=== PATIENT | female | born 1985 | race Caucasian/White ===

== ENCOUNTER 2022-01-23 11:32 | Observation (INO) | payer MEDICAID, SELFPAY ==
[2022-01-23] VITALS (70 sets, daily range): BP systolic 90–145; BP diastolic 64–102; PULSE 78–124; RESP 15–18; TEMP 36.6–36.7; O2SAT 94–100; BMI 28.3
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
--- NOTE | 2022-01-23 12:03 | ECG_ITS ---
[facility] Test Date: 2022-01-23 Pat Name: MAGALIS CHAVEZ Department: Room: Gender: Female Qa Software Tester: : 1985 Requested By: Mitch Kent Order Number: [id number] Ruth MD: Roger Moon M.D. Measurements Intervals [place] Rate: 86 P: 50 KS: 149 QRS: 41 QRSD: 105 T: 42 QT: 370 QTc: 444 Interpretive Statements SINUS RHYTHM POSSIBLE ANTERIOR MYOCARDIAL INFARCTION , OF INDETERMINATE AGE [30 ms Q WAVE IN V3/V4, OR R < 0.2 mV IN V4] No previous ECG available for comparison Electronically Signed On 01-23-2022 13:43:14 COMMUNITY SUPPORT SPECIALIST by Roger Moon M.D. [id number]
[2022-01-23 12:29] LABS: Basophils % 0.2 %; Eosinophils # 0.1 10^3/uL (0.0-0.8); Eosinophils % 0.7 %; Hematocrit 37.4 % (37.0-47.0); Lymphocytes # 0.8 10^3/uL (0.8-4.8); Lymphocytes % 9.4 %; Mean Corpuscular HGB Conc 32.1 g/dL (30.0-36.0); Mean Corpuscular Hemoglobin 26.4 pg (28.0-34.0); Mean Corpuscular Volume 82.2 fl (81-99); Mean Platelet Volume 10.1 fL (7.4-10.4); Monocytes # 0.3 10^3/uL (0.2-0.9); Neutrophils # 7.12 10^3/uL (1.8-7.7); Neutrophils % 85.3 %; Nucleated Red Blood Cells % 0 %; Platelet Count 343 10^3/cmm (130-400); Red Blood Count 4.55 10^6/uL (4.1-5.3); Red Cell Distribution Width 16.1 % (12.1-15.1); White Blood Count 8.3 10^3/uL (4.0-10.0)
[2022-01-23] MEDS: sodium chloride 0.9% 1,000 ML 999 ML IV (12:42)
[2022-01-23] MEDS: insulin regular-human 100 units/1 mL 10 UNIT IVP (12:42)
[2022-01-23 12:51] LABS: Alanine Aminotransferase 17 U/L (0-33); Albumin Level 3.7 g/dL (3.5-5.2); Alkaline Phosphatase 94 IU/L (35-105); Anion Gap 14.3 (5-19); Aspartate Amino Transferase 13 U/L (0-32); Blood Urea Nitrogen 14 mg/dL (6-20); Calcium 8.8 mg/dL (8.5-10.5); Carbon Dioxide 26 mmol/L (22-29); Chloride 90 mmol/L (98-107); Globulin 2.8 g/dL (1.3-4.6); Glomerular Filtration Rate 112.5 mL/min (90-130); Osmolality Calculated 296 mOsm/kg (285-295); Potassium 4.3 mmol/L (3.5-5.1); Sodium 126 mmol/L (136-145); Thyroid Stimulating Hormone 0.55 uIU/mL (0.27-4.20); Total Bilirubin 0.2 mg/dL (0.15-1.2); Total Protein 6.5 g/dL (6.6-8.7)
[2022-01-23 12:54] LABS: ABG PCO2 27.9 mmHg (35-45); ABG PH Result 7.26 (7.35-7.45); Arterial Blood Gas Hematocrit 25.1 % (37-47); Base Excess ABG -13.4 mmol/L (-2.0-2.0); Blood Gas Operator Identificat glc; Blood Gas Sample Site Brachial, left; Blood Gas Sample Type Arterial; Carboxyhemoglobin 0.9 %THgb (0.4-20.1); HCO3 ABG 12.5 mmol/L (22-26); Ionized Calcium Level - ABG 1.1 mmol/L (1.1-1.4); Methemoglobin 0.8 % (0.4-1.5); Oxygen Device ROOM AIR; Oxygen Saturation ABG 98.7; Total Hemoglobin 8.2 g/dL (12-16)
[2022-01-23 12:55] LABS: Glucose 704 mg/dL (65-115)
[2022-01-23 13:08] LABS: HCG Qualitative Urine. Negative (Negative)
[2022-01-23 13:41] LABS: SARS Covid-2 Antigen Negative (Negative)
[2022-01-23 13:49] LABS: Bilirubin Urine Neg (Negative); Blood Urine 3+ (Negative); Glucose Urine UA 4+ (Normal); Ketones Urine Negative (Negative); Leukocyte Esterase Urine Negative (Negative); Nitrate Urine Positive (Negative); Protein Urine Neg (Negative); Specific Gravity, Urine 1.005 (1.005-1.030); Urine Appearance Hazy (CLEAR); Urine Color Yellow (Yellow); Urobilinogen Urine Neg (Negative); pH Urine 5 (5-7)
[2022-01-23 13:50] LABS: Add Urine Culture? Yes; Bacteria Urine 3+ /hpf; Squamous Epithelial Cell Urine 0-4 /hpf (0-5)
--- NOTE | 2022-01-23 14:06 | PC.NURSE ---
FSBS 351
[2022-01-23 14:09] LABS: Glucose Point of Care 351 mg/dL (70-110)
--- NOTE | 2022-01-23 14:10 | PC.NURSE ---
PATIENT WOULD LIKE TO LEAVE. PROVIDER NOTIFIED.
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
--- NOTE | 2022-01-23 14:40 | ED_ITS ---
HPI - General Adult General: Chief complaint: General Medical Stated complaint: HYPERGLYCEMIA Time Seen by Provider: 01/23/22 11:57 History of Present Illness: See previous note Course Vital Signs: Vital signs: Vital Signs Temperature 98.1 F 01/23/22 11:54 Pulse Rate 90 01/23/22 13:03 Respiratory Rate 15 01/23/22 13:03 Blood Pressure 124/88 01/23/22 13:03 Pulse Oximetry 99 01/23/22 13:03 MDM - General Adult Medical Decision Making Addendum previous ER documentation, following deciding that she would like to leave AGAINST MEDICAL ADVICE patient then recounted her decision and decided to stay. Started on insulin drip and admitted to ICU. Remainder of lab work and imaging reviewed. Discussed with hospitalist and they agreed patient would benefit from admission. Patient admitted in stable condition. Further evaluation management per hospitalist team. Lab Data : 01/23/22 11:20 01/23/22 11:20 Laboratory Results WBC 8.3 10^3/uL (4.0-10.0) 01/23/22 11:20 RBC 4.55 10^6/uL (4.1-5.3) 01/23/22 11:20 Hgb 12.0 g/dL (11.5-15.3) 01/23/22 11:20 Hct 37.4 % (37.0-47.0) 01/23/22 11:20 MCV 82.2 fl (81-99) 01/23/22 11:20 MCH 26.4 pg (28.0-34.0) L 01/23/22 11:20 MCHC 32.1 g/dL (30.0-36.0) 01/23/22 11:20 RDW 16.1 % (12.1-15.1) H 01/23/22 11:20 Plt Count 343 10^3/cmm (130-400) 01/23/22 11:20 MPV 10.1 fL (7.4-10.4) 01/23/22 11:20 Neut % (Auto) 85.3 % 01/23/22 11:20 Lymph % (Auto) 9.4 % 01/23/22 11:20 [place] % (Auto) 4.0 % 01/23/22 11:20 Eos % (Auto) 0.7 % 01/23/22 11:20 Baso % (Auto) 0.2 % 01/23/22 11:20 Neut # (Auto) 7.12 10^3/uL (1.8-7.7) 01/23/22 11:20 Lymph # (Auto) 0.8 10^3/uL (0.8-4.8) 01/23/22 11:20 [place] # (Auto) 0.3 10^3/uL (0.2-0.9) 01/23/22 11:20 Eos # (Auto) 0.1 10^3/uL (0.0-0.8) 01/23/22 11:20 Baso # (Auto) 0.0 10^3/uL (0.0-0.1) 01/23/22 11:20 Nucleated RBC % (auto) 0 % 01/23/22 11:20 Nucleated RBCs # 0.0 /100WBC 01/23/22 11:20 Specimen Type Arterial 01/23/22 12:46 Sample Site Brachial, left 01/23/22 12:46 ABG pH 7.26 (7.35-7.45) L 01/23/22 12:46 ABG pCO2 27.9 mmHg (35-45) L 01/23/22 12:46 ABG pO2 115.0 mmHg (80.0-100.0) H 01/23/22 12:46 ABG HCO3 12.5 mmol/L (22-26) L 01/23/22 12:46 ABG O2 Saturation 98.7 01/23/22 12:46 ABG Base Excess -13.4 mmol/L (-2.0-2.0) L 01/23/22 12:46 Justin Test N/a 01/23/22 12:46 Hematocrit 25.1 % (37-47) L 01/23/22 12:46 Hgb O2 Saturation 97.0 % (95-100) 01/23/22 12:46 Carboxyhemoglobin 0.9 %THgb (0.4-20.1) 01/23/22 12:46 Methemoglobin 0.8 % (0.4-1.5) 01/23/22 12:46 Total Hemoglobin 8.2 g/dL (12-16) L 01/23/22 12:46 Sodium 141.0 mmol/L (131-143) 01/23/22 12:46 Potassium 4.0 mmol/L (3.5-5.0) 01/23/22 12:46 Glucose 229.0 mg/dL (70-115) H 01/23/22 12:46 Ionized Calcium 1.1 mmol/L (1.1-1.4) 01/23/22 12:46 O2 Delivery Device Room air 01/23/22 12:46 FiO2 21.0 % 01/23/22 12:46 Folding Rules Printing Machine Operator ID glc 01/23/22 12:46 Sodium 126 mmol/L (136-145) L 01/23/22 11:20 Potassium 4.3 mmol/L (3.5-5.1) 01/23/22 11:20 Chloride 90 mmol/L (98-107) L 01/23/22 11:20 Carbon Dioxide 26 mmol/L (22-29) 01/23/22 11:20 Anion Gap 14.3 (5-19) 01/23/22 11:20 BUN 14 mg/dL (6-20) 01/23/22 11:20 Creatinine 0.6 mg/dL (0.5-0.9) 01/23/22 11:20 GFR Calculation 112.5 mL/min (90-130) 01/23/22 11:20 Glucose 704 mg/dL (65-115) H* 01/23/22 11:20 POC Glucose 351 mg/dL (70-110) H 01/23/22 14:06 Calculated Osmolality 296 mOsm/kg (285-295) H 01/23/22 11:20 Calcium 8.8 mg/dL (8.5-10.5) 01/23/22 11:20 Total Bilirubin 0.2 mg/dL (0.15-1.2) 01/23/22 11:20 AST 13 U/L (0-32) 01/23/22 11:20 ALT 17 U/L (0-33) 01/23/22 11:20 Alkaline Phosphatase 94 IU/L (35-105) 01/23/22 11:20 Total Protein 6.5 g/dL (6.6-8.7) L 01/23/22 11:20 Albumin 3.7 g/dL (3.5-5.2) 01/23/22 11:20 Globulin 2.8 g/dL (1.3-4.6) 01/23/22 11:20 TSH 0.55 uIU/mL (0.27-4.20) 01/23/22 11:20 HCG, Qual Negative (Negative) 01/23/22 12:57 Urine Color Yellow (Yellow) 01/23/22 12:57 Urine Appearance Hazy (CLEAR) A 01/23/22 12:57 Urine pH 5 (5-7) 01/23/22 12:57 Ur Specific [place] 1.005 (1.005-1.030) 01/23/22 12:57 Urine Protein Neg (Negative) 01/23/22 12:57 Urine Glucose (UA) 4+ (Normal) H 01/23/22 12:57 Urine Ketones Negative (Negative) 01/23/22 12:57 Urine Blood 3+ (Negative) H 01/23/22 12:57 Urine Nitrate Positive (Negative) H 01/23/22 12:57 Urine Bilirubin Neg (Negative) 01/23/22 12:57 Urine Urobilinogen Neg mg/dL (Negative) 01/23/22 12:57 Ur Leukocyte Esterase Negative (Negative) 01/23/22 12:57 Urine RBC 10-15 /hpf (0-2) H 01/23/22 12:57 Urine WBC 5-10 /hpf (0-5) H 01/23/22 12:57 Ur Squamous Epith Cells 0-4 /hpf (0-5) H 01/23/22 12:57 Amorphous Sediment Not Reportable 01/23/22 12:57 Urine Bacteria 3+ /hpf (NONE) H 01/23/22 12:57 SARS-CoV-2 Ag (Rapid) Negative (Negative) 01/23/22 12:59 Discharge Plan Discharge Patient Disposition: Left Against Medical Advice Clinical Impression: UTI (urinary tract infection), Hyperglycemia Condition: Stable Prescriptions: New cephalexin 500 mg tablet 500 mg PO BID 7 Days Qty: 14 0RF Referrals: Your, PCP [Other] - 1-3 days Patient Instructions: Urinary Tract Infection in Women (ED), Diabetic Hyperglycemia (ED) Coding Level of Care Code ED Loss Control Engineer for Mylene Arreguin
--- NOTE | 2022-01-23 14:52 | PC.NURSE ---
HOLD INSULIN DRIP PER DR SHEPPARD.
[2022-01-23] MEDS: cefTRIAXone 1,000 MG in sodium chloride 0.9% (plus) 50 ML 100 MG IV (14:54)
--- NOTE | 2022-01-23 14:59 | PC.NURSE ---
CALL [phone] [facility] AT [facility].
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
[2022-01-23 15:31] LABS: Alcohol Level < 10 mg/dL (0-10)
[2022-01-23 15:33] LABS: Amphetamines Screen Urine Positive (Negative); Barbiturates Screen Urine Negative (Negative); Benzodiazepines Screen Urine Negative (Negative); Cocaine Screen Urine Negative (Negative); Opiate Screen Urine Negative (Negative); PCP Screen Urine Negative (Negative); THC Screen Urine Negative (Negative)
[2022-01-23 15:34] LABS: Iron 42 ug/dL (37-145); Percent Saturation 12.6 % (20-50); Total Iron Binding Capacity 332 mcg/dl; Unsaturated Iron Binding 290 ug/dL (112-347)
[2022-01-23] MEDS: sodium chloride 0.9% 1,000 ML 75 ML IV (15:34)
[2022-01-23] MEDS: potassium chloride premix 100 ML 50 MEQ IV (15:34)
[2022-01-23 15:41] LABS: Procalcitonin 0.03 ng/mL (0-0.5)
[2022-01-23] MEDS: insulin glargine 100 units/1 mL 50 UNIT SUBCUT (17:02)
[2022-01-23 17:08] LABS: Glucose Point of Care 275 mg/dL (70-110)
[2022-01-23 17:39] LABS: Estmated Average Glucose 395; Hemoglobin A1C 15.4 % (4.0-6.0)
--- NOTE | 2022-01-23 18:37 | PC.NURSE ---
Arrived from ED via stretcher, scooted self to bed, AO no c/o at this time
[2022-01-23 19:35] LABS: Glucose Point of Care 369 mg/dL (70-110)
[2022-01-23] MEDS: enoxaparin 40 mg/0.4 mL Syringe SUBCUT (19:35)
[2022-01-23] MEDS: insulin lispro 100 unit/1 mL SUBCUT (19:36)
[2022-01-23 20:16] LABS: Glucose Point of Care 272 mg/dL (70-110)
[2022-01-23 22:19] LABS: Glucose Point of Care 360 mg/dL (70-110)
[2022-01-23 23:10] LABS: Glucose Point of Care 178 mg/dL (70-110)
[2022-01-24] VITALS (74 sets, daily range): BP systolic 80–153; BP diastolic 53–103; PULSE 0–95; RESP 18; TEMP 36.6–37.2; O2SAT 95–100
[2022-01-24 00:09] LABS: Anion Gap 10.8 (5-19); Blood Urea Nitrogen 12 mg/dL (6-20); Calcium 8.4 mg/dL (8.5-10.5); Carbon Dioxide 26 mmol/L (22-29); Chloride 103 mmol/L (98-107); Glomerular Filtration Rate 250.3 mL/min (90-130); Glucose 142 mg/dL (65-115); Osmolality Calculated 284 mOsm/kg (285-295); Potassium 3.8 mmol/L (3.5-5.1); Sodium 136 mmol/L (136-145)
[2022-01-24 04:03] LABS: Eosinophils # 0.1 10^3/uL (0.0-0.8); Eosinophils % 1.2 %; Hematocrit 32.9 % (37.0-47.0); Hemoglobin 10.8 g/dL (11.5-15.3); Lymphocytes # 1.5 10^3/uL (0.8-4.8); Mean Corpuscular HGB Conc 32.8 g/dL (30.0-36.0); Mean Corpuscular Hemoglobin 26.3 pg (28.0-34.0); Mean Corpuscular Volume 80.2 fl (81-99); Mean Platelet Volume 9.5 fL (7.4-10.4); Monocytes # 0.4 10^3/uL (0.2-0.9); Monocytes % 7.3 %; Neutrophils # 3.93 10^3/uL (1.8-7.7); Neutrophils % 66.3 %; Nucleated Red Blood Cells % 0 %; Platelet Count 317 10^3/cmm (130-400); White Blood Count 5.9 10^3/uL (4.0-10.0)
[2022-01-24 04:23] LABS: Chol HDL Ratio 4.56 mg/dL (0.0-4.40); Cholesterol 205 mg/dL (0-200); HDL Cholesterol 45 mg/dL (60-100); LDL Cholesterol Calculated 143 mg/dL (50-129); Triglycerides 86 mg/dL (0-150); VLDL Cholestrol Calculation 17 mg/dL (0-30)
[2022-01-24 04:26] LABS: Alanine Aminotransferase 13 U/L (0-33); Albumin Level 2.9 g/dL (3.5-5.2); Alkaline Phosphatase 74 IU/L (35-105); Anion Gap 10.5 (5-19); Aspartate Amino Transferase 11 U/L (0-32); Blood Urea Nitrogen 13 mg/dL (6-20); Calcium 8.4 mg/dL (8.5-10.5); Carbon Dioxide 25 mmol/L (22-29); Chloride 103 mmol/L (98-107); Globulin 2.9 g/dL (1.3-4.6); Glomerular Filtration Rate 250.3 mL/min (90-130); Glucose 124 mg/dL (65-115); Osmolality Calculated 282 mOsm/kg (285-295); Potassium 3.5 mmol/L (3.5-5.1); Sodium 135 mmol/L (136-145); Total Bilirubin 0.2 mg/dL (0.15-1.2); Total Protein 5.8 g/dL (6.6-8.7)
[2022-01-24] MEDS: sodium chloride 0.9% 1,000 ML 75 ML IV (06:12)
[2022-01-24 07:42] LABS: Glucose Point of Care 146 mg/dL (70-110)
[2022-01-24] MEDS: insulin lispro 100 unit/1 mL SUBCUT ×2 (08:01→11:40)
[2022-01-24] MEDS: insulin glargine 100 units/1 mL 50 UNIT SUBCUT (08:01)
[2022-01-24] MEDS: pantoprazole DR 40 mg Tablet PO (08:01)
--- NOTE | 2022-01-24 10:12 | PC.CHAP ---
Pastoral Care Encounter/Spiritual Assessment Type of Contact [] Declined plant cytologist visit [] Patient/Family/Request visit [] Outpatient visit [] Follow-up visit [] Physician referral [] Code/Alert [x] Routine visit [] Staff referral [] Actively dying [] Patient sleeping [] Family support [] [] Out of room [] Palliative care [] [] Receiving care in room [] Pre-surgical visit [] Trauma [] Long length of stay [x] ICU visit [x] Other: patient setting in bed with sunglasses on..... Relational/Emotional Strength [] Patient feels connected with others/family/visitors/staff [] Distress [] Loneliness/isolation [] Abandonment Spirituality of Patient [] Person of Odalis [] Attends Mosque of their [place] [] Believes in Prayer [] Reads Bible or Synagogue materials [] There are Spiritual issues to be addressed Oil Analyst Interventions [x] Prayer [] Active listening [] Non-anxious presence [] Spiritual/emotional support [] Crisis/trauma care [] Spiritual counseling [] Bereavement support [] Provided bereavement packet [] Provided Bible/devotional materials [] Provided toy/stuffed animal, coloring book to patient or family member [] Provided Communion [] Anointing/Jackson [] Salvation [x] Completed spiritual assessment [] Other: Impact on Illness or Injury [] Angry [] Fearful [] Anxious [] Often cries [] Exhaustion [] Unable to work [] Unable to attend caodaism [] Unable to walk/stand [] Unable to read [] Unable to drive [] Unable to eat/drink [] Unable to sleep [] Unable to be with family [] Patient intubated [] Other: Summary Time spent with patient
[2022-01-24 11:25] LABS: Glucose Point of Care 237 mg/dL (70-110)
--- NOTE | 2022-01-24 12:15 | PC.NURSE ---
Dr. Kerr gave v.o. to send patient to med surg once there is a bed available
--- NOTE | 2022-01-24 12:34 | PC.NURSE ---
Dr. Kerr gave v.o. to d/c patient today
--- NOTE | 2022-01-24 12:38 | PM.DCS ---
Discharge Providers Date of Admission: 01/23/22 14:48 Date of Discharge: January 24, 2022 Attending Provider at Admission: Shyam Camara MD Attending Provider at Discharge: Barrett Kerr MD Diagnoses at Discharge Discharge Diagnosis (1) Hyperglycemia: Status: Acute (2) UTI (urinary tract infection): Status: Acute (3) Insulin dependent type 2 diabetes mellitus: Status: Acute (4) Amphetamine abuse: Status: Acute (5) Legally blind: Status: Acute (6) Metabolic acidosis due to diabetes mellitus: Status: Acute Reason for Visit Reason for Visit: HYPERGLYCEMIA Hospital Course Hospital Course 36 year old female with past medical history of insulin-dependent type 2 diabetes mellitus, legally blind for last 8 months [facility], she was sent in from [facility] because of persistent hyperglycemia.Patient was complaining of mild abdominal pain on admission .Denies any nausea vomiting, headache, fever, dysuria.In the ER she was found to have blood sugars of more than 700, acidosis on the ABG though did not have an anion gap. She was admitted for the management of uncontrolled diabetes secondary to medication noncompliance As well as hyperglycemia. She was kept on Lantus as well as sliding scale insulin during the hospital stay. Blood sugar was well controlled, she was tolerating diet well, denied any active complaints. She was discharged back to the rehab, on Lantus 40 twice daily, as well as 7 units premeal NovoLog. According to the patient staff at the facility helps her with insulin administration. She was also managed for UTI: Urine culture is growing gram-negative rods:She has been discharged on levofloxacin p.o. for 5 days. She will follow-up with her PCP as an outpatient for continued diabetes management. Patient responded well to above medical management and is being discharged in stable condition To the rehabilitation facility. Physical Exam Const: COMMON NORMALS: patient oriented x3 HENMT: COMMON NORMALS: normocephalic and atraumatic HEAD & SCALP: normocephalic and atraumatic Eye: COMMON NORMALS: no scleral icterus Chest: COMMONS NORMALS: normal inspection of the chest and normal palpation of entire chest wall CHEST: Yes Symmetrical chest wall rise Resp: COMMON NORMALS: normal respiratory effort, No retractions, No use of accessory muscles and clear to auscultation bilaterally EFFORT & INSPECTION: Yes symmetric chest movement AUSCULTATION: clear to auscultation bilaterally Cardio: COMMON NORMALS: regular rate, regular rhythm, S1 normal heart sound present, S2 normal heart sound present, No gallops present (Cardio), No murmurs present (Cardio), No rub (Cardio) and Peripheral pulses 2+ throughout RATE: regular rate RHYTHM: regular rhythm HEART SOUNDS: S1 normal heart sound present and S2 normal heart sound present PERIPHERAL PULSES: Peripheral pulses 2+ throughout GI: COMMON NORMALS: Normal to inspection, nondistended, normoactive bowel sounds present, Soft to palpation, non-tender, No hepatosplenomegaly present and no masses AUSCULTATION: Yes normoactive bowel sounds PALPATION: Yes Soft to palpation and Yes No hepatosplenomegaly present RECTAL EXAM: deferred Extremity: COMMON NORMALS: no clubbing, cyanosis or edema and no pedal edema Neuro: COMMON NORMALS: patient oriented x3 Discharge Data Studies Completed and Pending Pending at discharge Category Date Time Status Arterial Blood Gas Full Stat Lab 01/23/22 12:46 Results Beta-Hydroxybutyrate Routine Lab 01/23/22 11:20 Received Blood Culture Stat Lab 01/23/22 15:31 Results Ethylene Glycol Stat Lab 01/23/22 15:28 Received MRSA by PCR Routine Lab 01/23/22 14:52 Uncollected Urine Culture Stat Lab 01/23/22 12:57 Results Laboratory Results WBC 5.9 10^3/uL (4.0-10.0) 01/24/22 03:28 RBC 4.10 10^6/uL (4.1-5.3) 01/24/22 03:28 Hgb 10.8 g/dL (11.5-15.3) L 01/24/22 03:28 Hct 32.9 % (37.0-47.0) L 01/24/22 03:28 MCV 80.2 fl (81-99) L 01/24/22 03:28 MCH 26.3 pg (28.0-34.0) L 01/24/22 03:28 MCHC 32.8 g/dL (30.0-36.0) 01/24/22 03:28 RDW 16.0 % (12.1-15.1) H 01/24/22 03:28 Plt Count 317 10^3/cmm (130-400) 01/24/22 03:28 MPV 9.5 fL (7.4-10.4) 01/24/22 03:28 Neut % (Auto) 66.3 % 01/24/22 03: Lymph % (Auto) 25.0 % 01/24/22 03:28 Gilchrist % (Auto) 7.3 % 01/24/22 03:28 Eos % (Auto) 1.2 % 01/24/22 03:28 Baso % (Auto) 0.0 % 01/24/22 03: Neut # (Auto) 3.93 10^3/uL (1.8-7.7) 01/24/22 03: Lymph # (Auto) 1.5 10^3/uL (0.8-4.8) 01/24/22 03: Gilchrist # (Auto) 0.4 10^3/uL (0.2-0.9) 01/24/22 03: Eos # (Auto) 0.1 10^3/uL (0.0-0.8) 01/24/22 03: Baso # (Auto) 0.0 10^3/uL (0.0-0.1) 01/24/22 03: Nucleated RBC % (auto) 0 % 01/24/22 03: Nucleated RBCs # 0.0 /100WBC 01/24/22 03:28 Specimen Type Arterial 01/23/22 12:46 Sample Site Brachial, left 01/23/22 12:46 ABG pH 7.26 (7.35-7.45) L 01/23/22 12:46 ABG pCO2 27.9 mmHg (35-45) L 01/23/22 12:46 ABG pO2 115.0 mmHg (80.0-100.0) H 01/23/22 12:46 ABG HCO3 12.5 mmol/L (22-26) L 01/23/22 12:46 ABG O2 Saturation 98.7 01/23/22 12:46 ABG Base Excess -13.4 mmol/L (-2.0-2.0) L 01/23/22 12:46 Justin Test N/a 01/23/22 12:46 Hematocrit 25.1 % (37-47) L 01/23/22 12:46 Hgb O2 Saturation 97.0 % (95-100) 01/23/22 12:46 Carboxyhemoglobin 0.9 %THgb (0.4-20.1) 01/23/22 12:46 Methemoglobin 0.8 % (0.4-1.5) 01/23/22 12:46 Total Hemoglobin 8.2 g/dL (12-16) L 01/23/22 12:46 Sodium 141.0 mmol/L (131-143) 01/23/22 12:46 Potassium 4.0 mmol/L (3.5-5.0) 01/23/22 12:46 Glucose 229.0 mg/dL (70-115) H 01/23/22 12:46 Ionized Calcium 1.1 mmol/L (1.1-1.4) 01/23/22 12:46 O2 Delivery Device Room air 01/23/22 12:46 FiO2 21.0 % 01/23/22 12:46 Roll Trucker ID glc 01/23/22 12:46 Sodium 135 mmol/L (136-145) L 01/24/22 03:28 Potassium 3.5 mmol/L (3.5-5.1) 01/24/22 03:28 Chloride 103 mmol/L (98-107) 01/24/22 03:28 Carbon Dioxide 25 mmol/L (22-29) 01/24/22 03:28 Anion Gap 10.5 (5-19) 01/24/22 03:28 BUN 13 mg/dL (6-20) 01/24/22 03:28 Creatinine 0.3 mg/dL (0.5-0.9) L 01/24/22 03:28 GFR Calculation 250.3 mL/min (90-130) H 01/24/22 03:28 Glucose 124 mg/dL (65-115) H 01/24/22 03:28 POC Glucose 237 mg/dL (70-110) H 01/24/22 11:22 Estimat Average Glucose 395 01/23/22 11:20 Hemoglobin A1c 15.4 % (4.0-6.0) H 01/23/22 11:20 Calculated Osmolality 282 mOsm/kg (285-295) L 01/24/22 03:28 Calcium 8.4 mg/dL (8.5-10.5) L 01/24/22 03:28 Iron 42 ug/dL (37-145) 01/23/22 11:20 TIBC 332 mcg/dl 01/23/22 11:20 % Saturation 12.6 % (20-50) L 01/23/22 11:20 Unsat Iron Binding 290 ug/dL (112-347) 01/23/22 11:20 Total Bilirubin 0.2 mg/dL (0.15-1.2) 01/24/22 03:28 AST 11 U/L (0-32) 01/24/22 03:28 ALT 13 U/L (0-33) 01/24/22 03:28 Alkaline Phosphatase 74 IU/L (35-105) 01/24/22 03:28 Total Protein 5.8 g/dL (6.6-8.7) L 01/24/22 03:28 Albumin 2.9 g/dL (3.5-5.2) L 01/24/22 03:28 Globulin 2.9 g/dL (1.3-4.6) 01/24/22 03:28 Triglycerides 86 mg/dL (0-150) 01/24/22 03:28 Cholesterol 205 mg/dL (0-200) H 01/24/22 03:28 LDL Cholesterol, Calc 143 mg/dL (50-129) H 01/24/22 03:28 Total VLDL Cholesterol 17 mg/dL (0-30) 01/24/22 03:28 HDL Cholesterol 45 mg/dL (60-100) L 01/24/22 03:28 Cholesterol/HDL Ratio 4.56 mg/dL (0.0-4.40) H 01/24/22 03:28 Procalcitonin 0.03 ng/mL (0-0.5) 01/23/22 11:20 TSH 0.55 uIU/mL (0.27-4.20) 01/23/22 11:20 TSH Cancelled 01/23/22 11:20 HCG, Qual Negative (Negative) 01/23/22 12:57 Urine Color Yellow (Yellow) 01/23/22 12:57 Urine Appearance Hazy (CLEAR) A 01/23/22 12:57 Urine pH 5 (5-7) 01/23/22 12:57 Ur Specific [place] 1.005 (1.005-1.030) 01/23/22 12:57 Urine Protein Neg (Negative) 01/23/22 12:57 Urine Glucose (UA) 4+ (Normal) H 01/23/22 12:57 Urine Ketones Negative (Negative) 01/23/22 12:57 Urine Blood 3+ (Negative) H 01/23/22 12:57 Urine Nitrate Positive (Negative) H 01/23/22 12:57 Urine Bilirubin Neg (Negative) 01/23/22 12:57 Urine Urobilinogen Neg mg/dL (Negative) 01/23/22 12:57 Ur Leukocyte Esterase Negative (Negative) 01/23/22 12:57 Urine RBC 10-15 /hpf (0-2) H 01/23/22 12:57 Urine WBC 5-10 /hpf (0-5) H 01/23/22 12:57 Ur Squamous Epith Cells 0-4 /hpf (0-5) H 01/23/22 12:57 Amorphous Sediment Not Reportable 01/23/22 12:57 Urine Bacteria 3+ /hpf (NONE) H 01/23/22 12:57 Urine Opiates Screen Negative ng/mL (Negative) 01/23/22 12:57 Ur Barbiturates Screen Negative ng/mL (Negative) 01/23/22 12:57 Ur Phencyclidine Scrn Negative ng/mL (Negative) 01/23/22 12:57 Ur Amphetamines Screen Positive ng/mL (Negative) H 01/23/22 12:57 U Benzodiazepines Scrn Negative ng/mL (Negative) 01/23/22 12:57 Urine Cocaine Screen Negative ng/mL (Negative) 01/23/22 12:57 U Marijuana (THC) Screen Negative ng/mL (Negative) 01/23/22 12:57 Ethyl Alcohol < 10 mg/dL (0-10) 01/23/22 11:20 SARS-CoV-2 Ag (Rapid) Negative (Negative) 01/23/22 12:59 Vitals Last Vital Signs Temp 97.8 F 01/24/22 04:25 Pulse 81 01/24/22 12:00 Resp 16 01/23/22 18:29 BP 88/56 01/24/22 12:00 Pulse Ox 98 01/24/22 12:00 Discharge Plan Discharge Patient Disposition: Home Condition: Stable Prescriptions: New cephalexin 500 mg tablet 500 mg PO BID 7 Days Qty: 14 0RF levofloxacin 750 mg tablet 750 mg PO DAILY 5 Days Qty: 5 0RF Novolog Flexpen U-100 Insulin 100 unit/mL (3 mL) insulin pen 7 unit SUBCUT TID Qty: 15 2RF Lantus Solostar U-100 Insulin 100 unit/mL (3 mL) insulin pen 40 unit SUBCUT BID Qty: 15 3RF Discontinued insulin glargine 100 unit/mL Cartridge 40 unit SUBCUT BID 0RF Discharge Orders: Discharge Order (Routine); Ordered 01/24/22 Ordered By: Barrett Kerr Referrals: Your, PCP [Other] - 7-10 days Discharge Diet: Diabetic Discharge Activity: Resume usual activity Patient Instructions: Type 2 Diabetes, Hyperglycemia, Urinary Tract Infection in Women (ED), Diabetic Ketoacidosis (DC), Methamphetamine Use Disorder (DC), Diabetic Hyperglycemia (ED), Opioid Safety Discharge Attestations Time Spent in Discharge Care*: greater than 30 min Specific Discharge Activities: educating patient, educating and/or supporting family/caregiver, discussing with pcp/other providers, discussing with manager rn case/social workers/dc planners, documenting/other paperwork and evaluating patient/reviewing data Quality Metrics Clinical Quality Measures [ No reported AMI, CVA or VTE this stay] Coding Level of Care Code Acute Chg FW DC note Diagnoses Hyperglycemia R73.9 UTI (urinary tract infection) N39.0 Insulin dependent type 2 diabetes mellitus E11.9; Z79.4 Amphetamine abuse F15.10 Legally blind H54.8 Metabolic acidosis due to diabetes mellitus E11.69; E87.2
--- NOTE | 2022-01-24 12:45 | PC.NURSE ---
Patient requested prescriptions be given given to patient upon d/c
--- NOTE | 2022-01-24 13:05 | PC.NURSE ---
D/C meds called in for meds to beds
--- NOTE | 2022-01-24 14:30 | PC.NURSE ---
Discharge patient declined getting set up with a dr for follow up stating she will use a dr at [facility], this nurse notified [facility] of patient is ready for dc
--- NOTE | 2022-01-24 14:53 | PC.NURSE ---
Meds to beds arrived from Rx
--- NOTE | 2022-01-24 14:59 | PC.NURSE ---
[facility] called and received nurse report
--- NOTE | 2022-01-24 15:59 | PC.NURSE ---
patient out of unit accompanied by staff from [facility], meds to beds and dc paperwork given to receiving facility staff after going over instructions
[2022-01-28 23:58] LABS: Beta-Hydroxybutyrate 0.13 mmol/L
[2022-01-29 21:03] LABS: Ethylene Glycol <10.0 mg/L (***)
== END 2022-01-24 15:00 | disposition home or self-care (01) ==
LOC: ER 15:59 → ICU 18:02
PROVIDERS: Admitting Provider Student in an Organized Health Care Education/Training Program; Emergency Provider Emergency Medicine; Visit Provider Internal Medicine
DX: E11.65 Type 2 diabetes mellitus with hyperglycemia (principal); N39.0 Urinary tract infection, site not specified; Z79.4 Long term (current) use of insulin; F15.10 Other stimulant abuse, uncomplicated; H54.8 Legal blindness, as defined in USA; E11.69 Type 2 diabetes mellitus with other specified complication; E87.2 Acidosis; F15.11 Other stimulant abuse, in remission; Z87.891 Personal history of nicotine dependence
CPT/HCPCS: 36415; 36416; 36600; 80048; 80051; 80053; 80061; 80306; 80307; 81001; 81025; 82010; 82330; 82693; 82805; 82962; 83036; 83540; 83550; 84145; 84443; 85025; 87040; 87077; 87086; 87186; 87426; 93005; 94664; 96365; 96372; 96375; 99285; G0378; J0696; J1650; J1815 ×2; J3480; J7030

== ENCOUNTER 2022-01-26 14:44 | Emergency (ER) | payer MEDICAID, SELFPAY ==
[2022-01-26 15:09] VITALS: BP 132/88; PULSE 99; RESP 15; TEMP 36.7; O2SAT 100; BMI 30.2
[2022-01-26 15:15] VITALS: BP 105/70; PULSE 94; RESP 18; TEMP 36.8; O2SAT 94
[2022-01-26 15:35] LABS: Glucose Point of Care 512 mg/dL (70-110)
[2022-01-26 16:29] LABS: Basophils % 0.3 %; Eosinophils # 0.1 10^3/uL (0.0-0.8); Hematocrit 35.9 % (37.0-47.0); Hemoglobin 11.4 g/dL (11.5-15.3); Lymphocytes # 1.8 10^3/uL (0.8-4.8); Mean Corpuscular HGB Conc 31.8 g/dL (30.0-36.0); Mean Corpuscular Hemoglobin 25.9 pg (28.0-34.0); Mean Corpuscular Volume 81.6 fl (81-99); Mean Platelet Volume 9.5 fL (7.4-10.4); Monocytes # 0.4 10^3/uL (0.2-0.9); Monocytes % 6.2 %; Neutrophils # 3.73 10^3/uL (1.8-7.7); Nucleated Red Blood Cells % 0 %; Platelet Count 373 10^3/cmm (130-400); Red Cell Distribution Width 16.6 % (12.1-15.1)
[2022-01-26 16:38] LABS: Ketone (Acetest) Serum Negative (Negative)
[2022-01-26 16:40] LABS: ABG PCO2 41.4 mmHg (35-45); ABG PH Result 7.44 (7.35-7.45); Arterial Blood Gas Hematocrit 33.8 % (37-47); Base Excess ABG 3.3 mmol/L (-2.0-2.0); Blood Gas Allen Test Pos; Blood Gas Operator Identificat ED; Blood Gas Sample Site Radial, right; Blood Gas Sample Type Arterial; HCO3 ABG 27.9 mmol/L (22-26); Oxygen Device ROOM AIR; PO2 ABG 87.5 mmHg (80.0-100.0)
[2022-01-26 16:51] LABS: Blood Urea Nitrogen 20 mg/dL (6-20); Calcium 8.8 mg/dL (8.5-10.5); Carbon Dioxide 25 mmol/L (22-29); Chloride 97 mmol/L (98-107); Glomerular Filtration Rate 112.5 mL/min (90-130); Glucose 385 mg/dL (65-115); Osmolality Calculated 295 mOsm/kg (285-295); Sodium 133 mmol/L (136-145)
[2022-01-26] MEDS: insulin lispro 100 unit/1 mL SUBCUT (17:07)
[2022-01-26] MEDS: sodium chloride 0.9% 1,000 ML 999 ML IV ×2 (17:19→18:23)
--- NOTE | 2022-01-26 17:34 | ED_ITS ---
HPI - Recheck/Abnormal Lab/Rx General: Chief Complaint: Recheck/Abnormal Lab/Rx Stated Complaint: Bloodsugar Time Seen by Provider: 01/26/22 15:44 PFSH ED PFSH: Medical History (Updated 01/25/22 @ 00:01 by ) Amphetamine abuse Bacteremia Insulin dependent type 2 diabetes mellitus Legally blind Surgical History (Updated 01/23/22 @ 15:31 by Shyam Camara MD) History of incision and drainage Family History (Updated 01/23/22 @ 15:31 by Shyam Camara MD) Other Diabetes Social History (Updated 01/23/22 @ 15:32 by Shyam Camara MD) Smoking and tobacco status: former smoker Alcohol intake: unknown Desire information about substance/drug rehabilitation?: Yes Counseling given: Yes Caregiver/support person: No Lives independently: Yes Household members: other Housing: [facility] Course Vital Signs: Vital signs: Vital Signs Temperature 98.2 F 01/26/22 15:15 Pulse Rate 94 01/26/22 15:15 Respiratory Rate 18 01/26/22 15:15 Blood Pressure 105/70 01/26/22 15:15 Pulse Oximetry 94 01/26/22 15:15 MDM - Recheck/Abnormal Lab/Rx Lab Data : 01/26/22 16:19 01/26/22 16:19 Laboratory Results WBC 6.0 10^3/uL (4.0-10.0) 01/26/22 16:19 RBC 4.40 10^6/uL (4.1-5.3) 01/26/22 16:19 Hgb 11.4 g/dL (11.5-15.3) L 01/26/22 16:19 Hct 35.9 % (37.0-47.0) L 01/26/22 16:19 MCV 81.6 fl (81-99) 01/26/22 16:19 MCH 25.9 pg (28.0-34.0) L 01/26/22 16:19 MCHC 31.8 g/dL (30.0-36.0) 01/26/22 16:19 RDW 16.6 % (12.1-15.1) H 01/26/22 16:19 Plt Count 373 10^3/cmm (130-400) 01/26/22 16:19 MPV 9.5 fL (7.4-10.4) 01/26/22 16:19 Neut % (Auto) 62.0 % 01/26/22 16:19 Lymph % (Auto) 30.0 % 01/26/22 16:19 [place] % (Auto) 6.2 % 01/26/22 16:19 Eos % (Auto) 1.0 % 01/26/22 16:19 Baso % (Auto) 0.3 % 01/26/22 16:19 Neut # (Auto) 3.73 10^3/uL (1.8-7.7) 01/26/22 16:19 Lymph # (Auto) 1.8 10^3/uL (0.8-4.8) 01/26/22 16:19 [place] # (Auto) 0.4 10^3/uL (0.2-0.9) 01/26/22 16:19 Eos # (Auto) 0.1 10^3/uL (0.0-0.8) 01/26/22 16:19 Baso # (Auto) 0.0 10^3/uL (0.0-0.1) 01/26/22 16:19 Nucleated RBC % (auto) 0 % 01/26/22 16: Nucleated RBCs # 0.0 /100WBC 01/26/22 16:19 Specimen Type Arterial 01/26/22 16:25 Sample Site Radial, right 01/26/22 16:25 ABG pH 7.44 (7.35-7.45) 01/26/22 16:25 ABG pCO2 41.4 mmHg (35-45) 01/26/22 16:25 ABG pO2 87.5 mmHg (80.0-100.0) 01/26/22 16:25 ABG HCO3 27.9 mmol/L (22-26) H 01/26/22 16:25 ABG Base Excess 3.3 mmol/L (-2.0-2.0) H 01/26/22 16:25 Justin Test Pos 01/26/22 16:25 Hematocrit 33.8 % (37-47) L 01/26/22 16:25 O2 Delivery Device Room air 01/26/22 16:25 FiO2 21.0 % 01/26/22 16:25 Vehicle Window Tinter ID Ed 01/26/22 16:25 Sodium 133 mmol/L (136-145) L 01/26/22 16:19 Potassium 5.0 mmol/L (3.5-5.1) 01/26/22 16:19 Chloride 97 mmol/L (98-107) L 01/26/22 16:19 Carbon Dioxide 25 mmol/L (22-29) 01/26/22 16:19 Anion Gap 16.0 (5-19) 01/26/22 16:19 BUN 20 mg/dL (6-20) 01/26/22 16:19 Creatinine 0.6 mg/dL (0.5-0.9) 01/26/22 16:19 GFR Calculation 112.5 mL/min (90-130) 01/26/22 16:19 Glucose 385 mg/dL (65-115) H 01/26/22 16:19 POC Glucose 512 mg/dL (70-110) H* 01/26/22 15:17 Calculated Osmolality 295 mOsm/kg (285-295) 01/26/22 16:19 Calcium 8.8 mg/dL (8.5-10.5) 01/26/22 16:19 Serum Ketones Negative (Negative) 01/26/22 16:19 Discharge Plan Discharge Condition: Stable Prescriptions: No Action cephalexin 500 mg tablet 500 mg PO BID 7 Days Qty: 14 0RF levofloxacin 750 mg tablet 750 mg PO DAILY 5 Days Qty: 5 0RF Novolog Flexpen U-100 Insulin 100 unit/mL (3 mL) insulin pen 7 unit SUBCUT TID Qty: 15 2RF Lantus Solostar U-100 Insulin 100 unit/mL (3 mL) insulin pen 40 unit SUBCUT BID Qty: 15 3RF Coding Level of Care Code ED Tafe Registrar for Chg Kallie
--- NOTE | 2022-01-26 17:37 | ED_ITS ---
HPI - General Adult General: Chief complaint: Recheck/Abnormal Lab/Rx Stated complaint: Bloodsugar Time Seen by Provider: 01/26/22 15:44 History of Present Illness: Patient is a 36-year-old female with history of type 2 diabetes presenting to emergency room with concerns of hyperglycemia. Patient is coming from and they had routine blood work done this morning which noted the patient was had a glucose of 560. Patient then came to the emergency room. Patient took 20 units of Lantus earlier today and 20 units of short acting insulin prior to mealtime. On arrival, patient has no other focal complaints, nausea/vomiting, diarrhea, polyuria, dysuria, hematuria, abdominal complaints, fever/chills, cough, runny nose or sore throat. Onset:earlier today Duration:ongoing Location:home Severity:moderate Associated symptoms: Deny chest pain, dyspnea, nausea, rash, palpitations or vomiting Review of Systems Const: Denies: fever(s) or chills Eyes: Denies: change in vision ENMT: Denies: mouth pain Card: Denies: chest pain or palpitations Resp: Denies: dyspnea or non-productive cough GI: Denies: abdominal pain, nausea, vomiting or diarrhea : Denies: dysuria Musc: Denies: extremity pain Skin/Breast: Denies: rash or new lesions Neuro: Denies: weakness in extremities Psych: Reports: other (Normal mood) Jordon/Lymph: Denies: easy bruising [facility] ED PFSH: Medical History (Updated 01/26/22 @ 18:55 by Ayaz Eng MD) Amphetamine abuse Bacteremia Insulin dependent type 2 diabetes mellitus Legally blind Surgical History (Updated 01/23/22 @ 15:31 by Shyam Camara MD) History of incision and drainage Family History (Updated 01/23/22 @ 15:31 by Shyam Camara MD) Other Diabetes Social History (Updated 01/23/22 @ 15:32 by Shyam Camara MD) Smoking and tobacco status: former smoker Alcohol intake: unknown Desire information about substance/drug rehabilitation?: Yes Counseling given: Yes Caregiver/support person: No Lives independently: Yes Household members: other [facility]: [facility] Physical Exam Const: COMMON NORMALS: alert HENMT: COMMON NORMALS: atraumatic HEAD & SCALP: atraumatic MOUTH: moist mucous membranes not abnormal Eye: COMMON NORMALS: EOMs intact bilaterally and conjunctivae normal CONJUNCTIVA: Yes conjunctivae normal Neck/C-Spine: COMMON NORMALS: full ROM and supple Resp: COMMON NORMALS: normal respiratory effort and clear to auscultation bilaterally AUSCULTATION: clear to auscultation bilaterally Cardio: COMMON NORMALS: regular rate RATE: regular rate GI: COMMON NORMALS: Soft to palpation and non-tender PALPATION: Yes Soft to palpation Extremity: COMMON NORMALS: full ROM Neuro: SENSORIUM/ORIENTATION: Yes alert MOTOR EXAM: No Abnormal motor strength present and Other motor observations present (no focal motor deficits) Psych: COMMON NORMALS: speech normal SPEECH: Yes normal speech MOOD & AFFECT: Yes euthymic mood Course Vital Signs: Vital signs: Vital Signs Temperature 98 F 01/26/22 18:15 Pulse Rate 88 01/26/22 18:53 Respiratory Rate 18 01/26/22 18:53 Blood Pressure 117/72 01/26/22 18:53 Pulse Oximetry 96 01/26/22 18:53 MDM - General Adult Medical Decision Making 35-year-old female presents emergency room for concerns of hypoglycemia. On arrival, patient had glucose of 360. No anion gap. pH within normal limit. Ketone negative. Patient received 2 L IVF, and 5u of insulin with improvement in glucose. Glucose improved to <300 on reassessment for serial reads. No suspicion for other causes of hyperglycemia. Patient instructed to go home on mealtime insulin as needed. I have given patient follow up with our case supervisor to be seen by PCP for glucose adjustment. Patient aware of a call from our case supervisor to schedule for appointment(s) and verbalizes understanding of the importance of following up. Disposition: Discharge. Patient counseled regarding diagnostic impression, treatment plan. Patient given ED strict return precautions to return for continuation, worsening, or development of new symptoms. Instructed to f/u w/ PCP regarding symptoms today. Patient verbalized understanding. Lab Data : 01/26/22 16:19 01/26/22 16:19 Laboratory Results WBC 6.0 10^3/uL (4.0-10.0) 01/26/22 16:19 RBC 4.40 10^6/uL (4.1-5.3) 01/26/22 16:19 Hgb 11.4 g/dL (11.5-15.3) L 01/26/22 16:19 Hct 35.9 % (37.0-47.0) L 01/26/22 16:19 MCV 81.6 fl (81-99) 01/26/22 16:19 MCH 25.9 pg (28.0-34.0) L 01/26/22 16:19 MCHC 31.8 g/dL (30.0-36.0) 01/26/22 16:19 RDW 16.6 % (12.1-15.1) H 01/26/22 16:19 Plt Count 373 10^3/cmm (130-400) 01/26/22 16:19 MPV 9.5 fL (7.4-10.4) 01/26/22 16:19 Neut % (Auto) 62.0 % 01/26/22 16:19 Lymph % (Auto) 30.0 % 01/26/22 16:19 [place] % (Auto) 6.2 % 01/26/22 16:19 Eos % (Auto) 1.0 % 01/26/22 16:19 Baso % (Auto) 0.3 % 01/26/22 16:19 Neut # (Auto) 3.73 10^3/uL (1.8-7.7) 01/26/22 16:19 Lymph # (Auto) 1.8 10^3/uL (0.8-4.8) 01/26/22 16:19 [place] # (Auto) 0.4 10^3/uL (0.2-0.9) 01/26/22 16:19 Eos # (Auto) 0.1 10^3/uL (0.0-0.8) 01/26/22 16:19 Baso # (Auto) 0.0 10^3/uL (0.0-0.1) 01/26/22 16:19 Nucleated RBC % (auto) 0 % 01/26/22 16: Nucleated RBCs # 0.0 /100WBC 01/26/22 16:19 Specimen Type Arterial 01/26/22 16:25 Sample Site Radial, right 01/26/22 16:25 ABG pH 7.44 (7.35-7.45) 01/26/22 16:25 ABG pCO2 41.4 mmHg (35-45) 01/26/22 16:25 ABG pO2 87.5 mmHg (80.0-100.0) 01/26/22 16:25 ABG HCO3 27.9 mmol/L (22-26) H 01/26/22 16:25 ABG Base Excess 3.3 mmol/L (-2.0-2.0) H 01/26/22 16:25 Justin Test Pos 01/26/22 16:25 Hematocrit 33.8 % (37-47) L 01/26/22 16:25 O2 Delivery Device Room air 01/26/22 16:25 FiO2 21.0 % 01/26/22 16:25 Contracts Analyst ID Ed 01/26/22 16:25 Sodium 133 mmol/L (136-145) L 01/26/22 16:19 Potassium 5.0 mmol/L (3.5-5.1) 01/26/22 16:19 Chloride 97 mmol/L (98-107) L 01/26/22 16:19 Carbon Dioxide 25 mmol/L (22-29) 01/26/22 16:19 Anion Gap 16.0 (5-19) 01/26/22 16:19 BUN 20 mg/dL (6-20) 01/26/22 16:19 Creatinine 0.6 mg/dL (0.5-0.9) 01/26/22 16:19 GFR Calculation 112.5 mL/min (90-130) 01/26/22 16:19 Glucose 385 mg/dL (65-115) H 01/26/22 16:19 POC Glucose 103 mg/dL (70-110) 01/26/22 19:41 Calculated Osmolality 295 mOsm/kg (285-295) 01/26/22 16:19 Calcium 8.8 mg/dL (8.5-10.5) 01/26/22 16:19 Serum Ketones Negative (Negative) 01/26/22 16:19 Discharge Plan Discharge Patient Disposition: Home Clinical Impression: Hyperglycemia Condition: Stable Prescriptions: No Action cephalexin 500 mg tablet 500 mg PO BID 7 Days Qty: 14 0RF levofloxacin 750 mg tablet 750 mg PO DAILY 5 Days Qty: 5 0RF Novolog Flexpen U-100 Insulin 100 unit/mL (3 mL) insulin pen 7 unit SUBCUT TID Qty: 15 2RF Lantus Solostar U-100 Insulin 100 unit/mL (3 mL) insulin pen 40 unit SUBCUT BID Qty: 15 3RF Discharge Orders: Discharge ED (Routine); Ordered 01/26/22 Ordered By: Ayaz Eng Discharge Diet: Advance as tolerated Discharge Activity: Increase activity as tolerated Coding Level of Care Code ED Wood Polisher for Bernadineg Fwd Exam Comprehensive
[2022-01-26 17:45] VITALS: BP 122/81; O2SAT 96
[2022-01-26 18:15] VITALS: BP 121/84; PULSE 88; RESP 18; TEMP 36.6; O2SAT 96
[2022-01-26 18:30] VITALS: BP 117/72; RESP 18; O2SAT 98
[2022-01-26 18:46] LABS: Glucose Point of Care 219 mg/dL (70-110)
[2022-01-26 18:53] VITALS: BP 117/72; PULSE 88; RESP 18; O2SAT 96
[2022-01-26 19:21] LABS: Glucose Point of Care 118 mg/dL (70-110)
[2022-01-26] MEDS: LORazepam 2 mg/mL INJ 1 mL IM (19:38)
[2022-01-26 19:45] LABS: Glucose Point of Care 103 mg/dL (70-110)
[2022-01-26 19:46] LABS: Glucose Point of Care 104 mg/dL (70-110)
[2022-01-26 20:21] LABS: Glucose Point of Care 150 mg/dL (70-110)
--- NOTE | 2022-01-29 12:46 | DCPLANNER ---
social media sr strategy manager had message to speak with patient about getting a follow up appointment for patient with primary care physician. social media sr strategy manager was unable to speak with patient at this time.
== END 2022-01-26 21:04 | disposition home or self-care (01) ==
PROVIDERS: Emergency Provider Emergency Medicine
DX: E11.65 Type 2 diabetes mellitus with hyperglycemia (principal); Z79.4 Long term (current) use of insulin; Z87.891 Personal history of nicotine dependence
CPT/HCPCS: 36416; 36600; 80048; 82009; 82803; 82962; 85025; 96360; 96372; 99284; J1815; J2060; J7030

== ENCOUNTER 2022-02-05 18:57 | Inpatient (IN) | payer MEDICAID, SELFPAY ==
[2022-02-05] VITALS (17 sets, daily range): BP systolic 98–147; BP diastolic 71–104; PULSE 89–123; RESP 16–20; O2SAT 92–99
--- NOTE | 2022-02-05 18:58 | ECG_ITS ---
[facility] Test Date: 2022-02-05 Pat Name: Alexandra Huynh Department: Room: Gender: Female Curtain Hemmer Automatic: : 1985 Requested By: Lavon Mauricio Order Number: [id number] Flory MD: Roger Moon M.D. Measurements Intervals [place] Rate: 98 P: 44 [place]: 153 QRS: 43 QRSD: 102 T: 45 QT: 345 QTc: 441 Interpretive Statements SINUS RHYTHM POSSIBLE LEFT ATRIAL ENLARGEMENT [-0.1mV P-WAVE IN V1/V2] Compared to ECG 01/23/2022 12:16:26 Myocardial infarct finding no longer present Electronically Signed On 02-05-2022 23:18:10 TANK WAGON DRIVER by Roger Moon M.D. [id number]
--- NOTE | 2022-02-05 18:58 | CTR_ITS ---
PROCEDURE INFORMATION: Exam: CT Head Without Contrast Exam date and time: 02/05/2022 6:58 PM Age: 36 years old Clinical indication: Altered mental status/memory loss and weakness, extremity; Bilateral; Additional info: Symptoms of acute stroke TECHNIQUE: Imaging protocol: Computed tomography of the head without contrast. Radiation optimization: All CT scans at this facility use at least one of these dose optimization techniques: automated exposure control; mA and/or kV adjustment per patient size (includes targeted exams where dose is matched to clinical indication); or iterative reconstruction. Other technique: STROKE PROTOCOL was implemented. COMPARISON: No relevant prior studies available. RADIATION DOSE METRICS: Total DLP (mGy-cm): 968.19 FINDINGS: Brain: Normal. No hemorrhage. Unremarkable white matter. No mass effect. Cerebral ventricles: No ventriculomegaly. Paranasal sinuses: Visualized sinuses are unremarkable. No fluid levels. Mastoid air cells: Visualized mastoid air cells are well aerated. Bones/joints: Unremarkable. No acute fracture. Soft tissues: Unremarkable. CT/CT head wo con* [id number] IMPRESSION: No acute intracranial abnormality. ASSESSMENT: ASPECTS ([place] Stroke Program Early CT Score) is 10.
--- NOTE | 2022-02-05 19:02 | ED_ITS ---
HPI - Neuro Symptoms/Deficit General: Chief Complaint: Neuro Symptoms/Deficit Stated Complaint: L SIDED WEAKNESS, STROKE LIKE SYMPTOMS Time Seen by Provider: 02/05/22 18:58 Source: patient and EMS Mode of arrival: EMS Limitations: no limitations History of Present Illness: 36-year-old female who is here from [facility] she does have a history of methamphetamine abuse type I diabetic and blindness. States she been having some slight numbness in her left side that for the week and then starting at 6 PM she had sudden weakness on the left side she states she not able to move her left arm or her left leg at all. She was not able ambulate per EMS she has cleared speech she has chronic blindness. Associated symptoms: Deny chest pain, nausea or vomiting Review of Systems Const: Denies: fever(s), chills, body aches or change in appetite Eyes: Denies: blurry vision or eye discomfort ENMT: Denies: throat pain or dental pain Card: Denies: chest pain Resp: Denies: dyspnea GI: Denies: abdominal pain, nausea, vomiting or diarrhea : Denies: dysuria Musc: Reports: muscle weakness Skin/Breast: Denies: rash Neuro: Reports: numbness in extremities and weakness in extremities Psych: Denies: depression Jordon/Lymph: Denies: easy bruising All/Imm: Denies: urticaria PFSH ED PFSH: Medical History Amphetamine abuse Bacteremia Insulin dependent type 2 diabetes mellitus Legally blind Surgical History History of incision and drainage Family History Other Diabetes Social History Smoking and tobacco status: former smoker Alcohol intake: unknown Desire information about substance/drug rehabilitation?: Yes Counseling given: Yes Caregiver/support person: No Lives independently: Yes Household members: other Housing: Other Details: [facility] NIH stroke score NIHSS: Level Of Consciousness - 1a: 0 Level Of Consciousness Questions - 1b: Both Correct Level Of Consciousness Commands - 1c: Both Correct Best Gaze - 2: Normal (blind) Visual Owens - 3: No Visual Loss (pt is blind) Facial Palsy - 4: Normal Motor Arm Right - 5: No Drift Motor Arm Left - 5: No Movement Motor Leg Right - 6: No Drift Motor Leg Left - 6: No Movement Limb Ataxia - 7: Absent Sensory - 8: Normal Best Language - 9: No Aphasia Dysarthia - 10: Normal Extinction And Inattention - 11: 0 Score: Total Score: 8 Physical Exam Const: COMMON NORMALS: patient oriented x3 GENERAL APPEARANCE: in distress HENMT: COMMON NORMALS: normocephalic and atraumatic HEAD & SCALP: normocephalic and atraumatic Eye: COMMON NORMALS: conjunctivae normal CONJUNCTIVA: Yes conjunctivae normal Neck/C-Spine: COMMON NORMALS: full ROM and supple Chest: COMMONS NORMALS: normal inspection of the chest and normal palpation of entire chest wall Resp: COMMON NORMALS: normal respiratory effort, No retractions, No use of accessory muscles and clear to auscultation bilaterally AUSCULTATION: clear to auscultation bilaterally Cardio: COMMON NORMALS: regular rate, regular rhythm and No murmurs present (Cardio) RATE: regular rate RHYTHM: regular rhythm GI: COMMON NORMALS: Normal to inspection, nondistended, normoactive bowel sounds present, Soft to palpation, non-tender and no masses PALPATION: Yes Soft to palpation Extremity: COMMON NORMALS: normal to inspection and full ROM Neuro: COMMON NORMALS: patient oriented x3 OTHER: Very decreased strength to the left side unable to lift left arm or left leg no facial droop. Patient is blind unable to assess vision she has no aphasia here Psych: COMMON NORMALS: mental status grossly normal, Normal thought process present and cooperative THOUGHT PROCESS: Normal thought process present Skin: COMMON NORMALS: no rashes or lesions noted and no wounds GENERAL SKIN EXAM: no rashes or lesions noted Course Vital Signs: Vital signs: Vital Signs Pulse Rate 100 02/05/22 19:13 Respiratory Rate 18 02/05/22 19:13 Blood Pressure 124/93 02/05/22 19:13 Pulse Oximetry 99 02/05/22 19:13 MDM - Neuro Symptoms/Deficit Medical Decision Making Patient presents here with strokelike symptoms initially could not move her right side patient was given TPA she does have improving symptoms here she is able to move her right arm and leg currently blood pressure here has been under control CTA showed no large clot spoke to hospitalist who will admit also spoke to neurologist who is consulted. Lab Data : 02/05/22 19:19 02/05/22 19:[address] 02/05/22 18:58 IMPRESSION: No acute intracranial abnormality. ASSESSMENT: ASPECTS ([place] Stroke Program Early CT Score) is 10. Head/Neck CTA 02/05/22 19:29 IMPRESSION: No large vessel stenosis or occlusion. IMPRESSION: No stenosis or occlusion. REFERENCES: NASCET CRITERIA. The degree of internal carotid artery stenosis is based on NASCET criteria. Normal is no stenosis. Mild is less than 50% stenosis. Moderate is 50-69% stenosis. Severe is 70% to 99% stenosis. Total occlusion is no detectable patent lumen. Laboratory Results WBC 7.6 10^3/uL (4.0-10.0) 02/05/22 19:19 RBC 4.19 10^6/uL (4.1-5.3) 02/05/22 19:19 Hgb 10.9 g/dL (11.5-15.3) L 02/05/22 19:19 Hct 34.2 % (37.0-47.0) L 02/05/22 19:19 MCV 81.6 fl (81-99) 02/05/22 19:19 MCH 26.0 pg (28.0-34.0) L 02/05/22 19:19 MCHC 31.9 g/dL (30.0-36.0) 02/05/22 19:19 RDW 16.1 % (12.1-15.1) H 02/05/22 19:19 Plt Count 500 10^3/cmm (130-400) H 02/05/22 19:19 MPV 8.7 fL (7.4-10.4) 02/05/22 19:19 Neut % (Auto) 66.9 % 02/05/22 19:19 Lymph % (Auto) 24.0 % 02/05/22 19:19 Meagher % (Auto) 7.0 % 02/05/22 19:19 Eos % (Auto) 1.2 % 02/05/22 19:19 Baso % (Auto) 0.4 % 02/05/22 19:19 Neut # (Auto) 5.05 10^3/uL (1.8-7.7) 02/05/22 19:19 Lymph # (Auto) 1.8 10^3/uL (0.8-4.8) 02/05/22 19:19 Meagher # (Auto) 0.5 10^3/uL (0.2-0.9) 02/05/22 19:19 Eos # (Auto) 0.1 10^3/uL (0.0-0.8) 02/05/22 19:19 Baso # (Auto) 0.0 10^3/uL (0.0-0.1) 02/05/22 19:19 Nucleated RBC % (auto) 0 % 02/05/22 19:19 Nucleated RBCs # 0.0 /100WBC 02/05/22 19:19 PT 13.20 SECONDS (12.1-14.9) 02/05/22 19:19 INR 0.97 (0.8-1.2) 02/05/22 19:19 APTT 27.5 SECONDS (23.9-36.7) 02/05/22 19:19 Sodium 135 mmol/L (136-145) L 02/05/22 19:19 Potassium 4.3 mmol/L (3.5-5.1) 02/05/22 19:19 Chloride 99 mmol/L (98-107) 02/05/22 19:19 Carbon Dioxide 22 mmol/L (22-29) 02/05/22 19:19 Anion Gap 18.3 (5-19) 02/05/22 19:19 BUN 26 mg/dL (6-20) H 02/05/22 19:19 Creatinine 0.5 mg/dL (0.5-0.9) 02/05/22 19:19 GFR Calculation 138.8 mL/min (90-130) H 02/05/22 19:19 Glucose 182 mg/dL (65-115) H 02/05/22 19:19 Calculated Osmolality 289 mOsm/kg (285-295) 02/05/22 19:19 Calcium 9.8 mg/dL (8.5-10.5) 02/05/22 19:19 Total Bilirubin 0.2 mg/dL (0.15-1.2) 02/05/22 19:19 AST 14 U/L (0-32) 02/05/22 19:19 ALT 24 U/L (0-33) 02/05/22 19:19 Alkaline Phosphatase 83 IU/L (35-105) 02/05/22 19:19 Total Protein 7.1 g/dL (6.6-8.7) 02/05/22 19:19 Albumin 4.1 g/dL (3.5-5.2) 02/05/22 19:19 Globulin 3.0 g/dL (1.3-4.6) 02/05/22 19:19 Urine Color Yellow (Yellow) 02/05/22 20:14 Urine Appearance Hazy (CLEAR) A 02/05/22 20:14 Urine pH 5 (5-7) 02/05/22 20:14 Ur Specific [place] 1.015 (1.005-1.030) 02/05/22 20:14 Urine Protein Neg (Negative) 02/05/22 20:14 Urine Glucose (UA) 4+ (Normal) H 02/05/22 20:14 Urine Ketones Negative (Negative) 02/05/22 20:14 Urine Blood Neg (Negative) 02/05/22 20:14 Urine Nitrate Negative (Negative) 02/05/22 20:14 Urine Bilirubin Neg (Negative) 02/05/22 20:14 Urine Urobilinogen Norm mg/dL (Negative) 02/05/22 20:14 Ur Leukocyte Esterase Negative (Negative) 02/05/22 20:14 Urine RBC 0-4 /hpf (0-2) H 02/05/22 20:14 Urine WBC 25-40 /hpf (0-5) H 02/05/22 20:14 Ur Squamous Epith Cells 5-10 /hpf (0-5) H 02/05/22 20:14 Amorphous Sediment Not Reportable 02/05/22 20:14 Urine Bacteria 4+ /hpf (NONE) H 02/05/22 20:14 Urine Opiates Screen Negative ng/mL (Negative) 02/05/22 20:14 Ur Barbiturates Screen Negative ng/mL (Negative) 02/05/22 20:14 Ur Phencyclidine Scrn Negative ng/mL (Negative) 02/05/22 20:14 Ur Amphetamines Screen Negative ng/mL (Negative) 02/05/22 20:14 U Benzodiazepines Scrn Negative ng/mL (Negative) 02/05/22 20:14 Urine Cocaine Screen Negative ng/mL (Negative) 02/05/22 20:14 U Marijuana (THC) Screen Negative ng/mL (Negative) 02/05/22 20:14 EKG Data EKG 1: I personally reviewed and interpreted this EKG as follows: EKG interpretation date: 02/05/22 EKG interpretation time: 19:14 Interpretation: nsr hr [address] or t wave abnormalities qrs 102 qtc 400 Critical Care Time Critical Care Time: Critical Care Time: Yes Total Critical Care Time: 40 Attestation: The high probability of a clinically significant, sudden or life threatening deterioration of the patient's neuro system(s) required my full and direct attention, intervention and personal management. The critical care time is as shown. This time is in addition to time spent performing any reported procedures but includes the following: [x] Data and vital sign review and interpretation [x] Patient assessment, examination and intervention [x] Documentation [x] Medication orders and management Discharge Plan Discharge Patient Disposition: Admitted As Inpatient Clinical Impression: Cerebrovascular accident Condition: Stable Coding Level of Care Code ED Vessel Engineer for Bernadineg Fwd Exam Comprehensive
[2022-02-05 19:29] LABS: Basophils % 0.4 %; Eosinophils # 0.1 10^3/uL (0.0-0.8); Eosinophils % 1.2 %; Hematocrit 34.2 % (37.0-47.0); Hemoglobin 10.9 g/dL (11.5-15.3); Lymphocytes # 1.8 10^3/uL (0.8-4.8); Mean Corpuscular HGB Conc 31.9 g/dL (30.0-36.0); Mean Corpuscular Volume 81.6 fl (81-99); Mean Platelet Volume 8.7 fL (7.4-10.4); Monocytes # 0.5 10^3/uL (0.2-0.9); Neutrophils # 5.05 10^3/uL (1.8-7.7); Neutrophils % 66.9 %; Nucleated Red Blood Cells % 0 %; Platelet Count 500 10^3/cmm (130-400); Red Blood Count 4.19 10^6/uL (4.1-5.3); Red Cell Distribution Width 16.1 % (12.1-15.1); White Blood Count 7.6 10^3/uL (4.0-10.0)
--- NOTE | 2022-02-05 19:29 | CTR_ITS ---
PROCEDURE INFORMATION: Exam: CT Angiography Head With Contrast, Arteriography Exam date and time: 02/05/2022 7:29 PM Age: 36 years old Clinical indication: Patient HX: Left sided weakness; Additional info: CVA TECHNIQUE: Imaging protocol: Computed tomography angiography of the head with contrast. Exam focused on the arteries. 3D rendering (Not supervised by radiologist): MIP and/or 3D reconstructed images were created by the technologist. Radiation optimization: All CT scans at this facility use at least one of these dose optimization techniques: automated exposure control; mA and/or kV adjustment per patient size (includes targeted exams where dose is matched to clinical indication); or iterative reconstruction. Contrast material: OMNI 350; Contrast volume: 95 ml; Contrast route: INTRAVENOUS (IV); COMPARISON: CT head wo con* [id number] 02/05/2022 7:00 PM RADIATION DOSE METRICS: Total DLP (mGy-cm): 2122.65 FINDINGS: ANTERIOR CIRCULATION: Right internal carotid artery: Unremarkable. Intracranial segment is patent with no significant stenosis. No aneurysm. Right middle cerebral artery: Unremarkable. No occlusion or significant stenosis. No aneurysm. Right anterior cerebral artery: Unremarkable. No occlusion or significant stenosis. No aneurysm. Left internal carotid artery: Unremarkable. Intracranial segment is patent with no significant stenosis. No aneurysm. Left middle cerebral artery: Unremarkable. No occlusion or significant stenosis. No aneurysm. Left anterior cerebral artery: Unremarkable. No occlusion or significant stenosis. No aneurysm. POSTERIOR CIRCULATION: Right vertebral artery: Unremarkable. No occlusion or significant stenosis. No aneurysm. Left vertebral artery: Unremarkable. No occlusion or significant stenosis. No aneurysm. Basilar artery: Unremarkable. No occlusion or significant stenosis. No aneurysm. Right posterior cerebral artery: Unremarkable. No occlusion or significant stenosis. No aneurysm. Left posterior cerebral artery: Unremarkable. No occlusion or significant stenosis. No aneurysm. PROCEDURE INFORMATION: Exam: CT Angiography Neck With Contrast Exam date and time: 02/05/2022 7:29 PM Age: 36 years old Clinical indication: Patient HX: Left sided weakness; Additional info: CVA TECHNIQUE: Imaging protocol: Computed tomography angiography of the neck with contrast. 3D rendering (Not supervised by radiologist): MIP and/or 3D reconstructed images were created by the technologist. Radiation optimization: All CT scans at this facility use at least one of these dose optimization techniques: automated exposure control; mA and/or kV adjustment per patient size (includes targeted exams where dose is matched to clinical indication); or iterative reconstruction. Contrast material: OMNI 350; Contrast volume: 95 ml; Contrast route: INTRAVENOUS (IV); COMPARISON: CT head wo con* [id number] 02/05/2022 7:00 PM RADIATION DOSE METRICS: Total DLP (mGy-cm): 2122.65 FINDINGS: Right common carotid artery: No stenosis. No dissection or occlusion. Right internal carotid artery: No stenosis of the extracranial segment. No dissection or occlusion. Right external carotid artery: No occlusion or stenosis of the origin. Left common carotid artery: No stenosis. No dissection or occlusion. Left internal carotid artery: No stenosis of the extracranial segment. No dissection or occlusion. Left external carotid artery: No occlusion or stenosis of the origin. Right vertebral artery: No stenosis. No dissection or occlusion. Left vertebral artery: No stenosis. No dissection or occlusion. Soft tissues: Normal. No significant soft tissue swelling. Bones/joints: No acute fracture. CT/CT angio headneck* [id number] IMPRESSION: No large vessel stenosis or occlusion. IMPRESSION: No stenosis or occlusion. REFERENCES: NASCET CRITERIA. The degree of internal carotid artery stenosis is based on NASCET criteria. Normal is no stenosis. Mild is less than 50% stenosis. Moderate is 50-69% stenosis. Severe is 70% to 99% stenosis. Total occlusion is no detectable patent lumen.
[2022-02-05 19:40] LABS: INR 0.97 (0.8-1.2)
[2022-02-05 19:41] LABS: Partial Thromboplastin Time 27.5 SECONDS (23.9-36.7)
[2022-02-05 19:50] LABS: Alanine Aminotransferase 24 U/L (0-33); Albumin Level 4.1 g/dL (3.5-5.2); Alkaline Phosphatase 83 IU/L (35-105); Anion Gap 18.3 (5-19); Aspartate Amino Transferase 14 U/L (0-32); Blood Urea Nitrogen 26 mg/dL (6-20); Calcium 9.8 mg/dL (8.5-10.5); Carbon Dioxide 22 mmol/L (22-29); Chloride 99 mmol/L (98-107); Glomerular Filtration Rate 138.8 mL/min (90-130); Glucose 182 mg/dL (65-115); Osmolality Calculated 289 mOsm/kg (285-295); Potassium 4.3 mmol/L (3.5-5.1); Sodium 135 mmol/L (136-145); Total Bilirubin 0.2 mg/dL (0.15-1.2); Total Protein 7.1 g/dL (6.6-8.7)
--- NOTE | 2022-02-05 19:55 | PC.NURSE ---
192 Activase bolus of 6.4mg as order. Pt tolerated well. Witnessed by Miesha Vera RN at bedside
--- NOTE | 2022-02-05 20:01 | PC.NURSE ---
1950 Pt beginning to move left side. Now having a very weak tuckpointer with min resistance to traction. Dr Rae updated. Activase cont to infuse as ordered.
[2022-02-05 20:32] LABS: Add Urine Culture? Yes; Add Urine Microscopic? YES; Bacteria Urine 4+ /hpf; Bilirubin Urine Neg (Negative); Blood Urine Neg (Negative); Glucose Urine UA 4+ (Normal); Ketones Urine Negative (Negative); Leukocyte Esterase Urine Negative (Negative); Nitrate Urine Negative (Negative); Protein Urine Neg (Negative); RBC Urine 0-4 /hpf (0-2); Specific Gravity, Urine 1.015 (1.005-1.030); Urine Appearance Hazy (CLEAR); Urine Color Yellow (Yellow); Urobilinogen Urine Norm (Negative); WBC Urine 25-40 /hpf (0-5); pH Urine 5 (5-7)
[2022-02-05] MEDS: iohexol 350 mg/mL 100 mL Btl IV (20:32)
[2022-02-05 20:36] LABS: Amphetamines Screen Urine Negative (Negative); Barbiturates Screen Urine Negative (Negative); Benzodiazepines Screen Urine Negative (Negative); Cocaine Screen Urine Negative (Negative); Opiate Screen Urine Negative (Negative); PCP Screen Urine Negative (Negative); THC Screen Urine Negative (Negative)
--- NOTE | 2022-02-05 21:12 | P.HP_ITS ---
Providers/Chief Complaint Chief Complaint: L SIDED WEAKNESS, STROKE LIKE SYMPTOMS History of Present Illness Alexandra Huynh is a 36 year old female with past medical history of insulin-dependent type 2 diabetes mellitus, legally blind for last 8 months currently at [facility] for meth addiction since 01/21. Patient brought into the ER today because of left-sided weakness started around 6 PM which was sudden onset. Patient did have slight numbness of the left side for a round a week. On presentation to the ER patient's NIH score was 8. Code stroke was called in the ER and neurology was consulted after which patient received TPA. tPA was infused at around 7:45 PM. Hospitalist team was consulted for admission and further evaluation and management for post TPA care. Examination patient is sitting comfortably in bed. States most of her symptoms have alleviated other than mild numbness in left leg. She is moving her left arm without any complaints. Denies any nausea, pain, headache, dizziness. She states she has been having numbness and on the left side for around 1 week on and off but had sudden weakness today in the evening. States since today morning she has been having slight pain on the left side of her body from arm and legs. She states she has significant family history of stroke and CAD in her mother. Review of Systems General: Reports: 10 or more systems reviewed and unremarkable except in HPI and below Const: Denies: fever(s), chills, body aches, change in appetite, change in weight, malaise, night sweats, diaphoresis, change in sleep pattern, daytime sleepiness or snoring Eyes: Denies: change in vision, blurry vision, photophobia, eye discomfort or eye discharge ENMT: Denies: throat pain, enlarged tonsils, hoarseness, mouth pain, oral sores, dry mouth, tinnitus, nasal congestion or post nasal drip Card: Denies: chest pain, palpitations, irregular heart rhythm, edema, swelling of feet/ankles, lightheadedness, syncope, pre-syncope, dyspnea on exertion, orthopnea, leg pain with exertion or acrocyanosis Resp: Denies: dyspnea, productive cough, non-productive cough, wheezing, stridor, pain on inspiration, change in phlegm color, hemoptysis or chest congestion GI: Denies: abdominal pain, nausea, vomiting, hematemesis, coffee ground emesis, dysphagia, heartburn, diarrhea, constipation, bloating, GI cramping, change in bowel habits, pain on defecation, hematochezia or melena : Denies: flank pain, dysuria, urinary frequency, urinary urgency, urinary hesitancy, nocturia or hematuria Musc: Denies: neck pain, back pain, extremity pain, joint pain, joint swelling, joint redness, joint stiffness or limited range of motion Neuro: Denies: headache(s), numbness in extremities, weakness in extremities, sensory changes, lack of coordination, difficulty walking, frequent falls, dizziness, vertigo, confusion, Slurred speech present, difficulty communicating thoughts or seizure-like activity Psych: Denies: anxiety, depression, mood swings, panic attacks, hopelessness or irritability Endo: Denies: polyuria, polydipsia, tired all the time, cold intolerance, excessive sweating, flushing or heat intolerance Jordon/Lymph: Denies: easy bruising or easy bleeding All/Imm: Denies: tongue swelling, facial swelling or acute wheezing Medications/Allergies Home Medications Medication Instructions Recorded Confirmed Last Taken Type atorvastatin 20 mg tablet 20 mg PO BEDTIME 02/05/22 02/05/22 02/04/22 History bupropion HCl 150 mg 24 hr tablet, 150 mg PO QAM 02/05/22 02/05/22 02/05/22 History extended release empagliflozin 25 mg tablet 25 mg PO DAILY 02/05/22 02/05/22 02/05/22 History (Jardiance) hydroxyzine pamoate 50 mg capsule 50 mg PO TID PRN 02/05/22 02/05/22 02/05/22 History melatonin 5 mg tablet 5 mg PO BEDTIME 02/05/22 02/05/22 02/04/22 History metformin 500 mg tablet 1,000 mg PO BID 02/05/22 02/05/22 02/05/22 History mirtazapine 15 mg tablet 15 mg PO DAILY 02/05/22 02/05/22 02/04/22 History ondansetron HCl 8 mg tablet 8 mg PO Q8H PRN 02/05/22 02/05/22 02/03/22 History sitagliptin 100 mg tablet (Januvia) 100 mg PO DAILY 02/05/22 02/05/22 02/05/22 History Allergies Allergy/AdvReac Type Severity Reaction Status Date / Time No Known Allergies Allergy Verified 02/05/22 19:35 PFSH Acute PFSH: Medical History (Updated 02/05/22 @ 22:00 by Shyam Camara MD) Amphetamine abuse Bacteremia Insulin dependent type 2 diabetes mellitus Legally blind Surgical History History of incision and drainage Family History (Updated 02/05/22 @ 22:00 by Shyam Camara MD) Other CAD (coronary artery disease) Diabetes Hyperlipidemia Stroke Social History Smoking and tobacco status: former smoker Alcohol intake: unknown Desire information about substance/drug rehabilitation?: Yes Counseling given: Yes Caregiver/support person: No Lives independently: Yes Household members: other Housing: Other [facility] Vitals/I&O/Wt Last Vital Signs Pulse 100 02/05/22 19:13 Resp 18 02/05/22 19:13 BP 124/93 02/05/22 19:13 Pulse Ox 99 02/05/22 19:13 Weight last 48 hrs Weight 70.76 kg Physical Exam Narrative: General: No acute distress, AO x3, legally blind, mild ecchymosis of left eye most likely secondary to the rubbing which she was doing while I was in the room HEENT: PERRLA, pupils bilaterally equal and reactive Chest: Normal vesicular breath sounds, no added sounds, equal good air entry bilaterally CVS: S1-S2 regular, no murmurs, no tachycardia, no gallops, no rubs Abdomen: Soft, nontender, no organomegaly, bowel sounds present Neuro: AO x3, 5 x 5 right upper limb and lower limb, 4 x 5 left upper limb and lower limb, no slurry speech, no facial deformity Data : 02/05/22 19:19 02/05/22 19:19 Other Labs: Radiology Impressions Head CT 02/05/22 18:58 IMPRESSION: No acute intracranial abnormality. ASSESSMENT: ASPECTS (Shayla Stroke Program Early CT Score) is 10. Head/Neck CTA 02/05/22 19:29 IMPRESSION: No large vessel stenosis or occlusion. IMPRESSION: No stenosis or occlusion. REFERENCES: NASCET CRITERIA. The degree of internal carotid artery stenosis is based on NASCET criteria. Normal is no stenosis. Mild is less than 50% stenosis. Moderate is 50-69% stenosis. Severe is 70% to 99% stenosis. Total occlusion is no detectable patent lumen. Laboratory Results WBC 7.6 10^3/uL (4.0-10.0) 02/05/22 19:19 RBC 4.19 10^6/uL (4.1-5.3) 02/05/22 19:19 Hgb 10.9 g/dL (11.5-15.3) L 02/05/22 19:19 Hct 34.2 % (37.0-47.0) L 02/05/22 19:19 MCV 81.6 fl (81-99) 02/05/22 19:19 MCH 26.0 pg (28.0-34.0) L 02/05/22 19:19 MCHC 31.9 g/dL (30.0-36.0) 02/05/22 19:19 RDW 16.1 % (12.1-15.1) H 02/05/22 19:19 Plt Count 500 10^3/cmm (130-400) H 02/05/22 19:19 MPV 8.7 fL (7.4-10.4) 02/05/22 19:19 Neut % (Auto) 66.9 % 02/05/22 19:19 Lymph % (Auto) 24.0 % 02/05/22 19:19 [place] % (Auto) 7.0 % 02/05/22 19:19 Eos % (Auto) 1.2 % 02/05/22 19:19 Baso % (Auto) 0.4 % 02/05/22 19:19 Neut # (Auto) 5.05 10^3/uL (1.8-7.7) 02/05/22 19:19 Lymph # (Auto) 1.8 10^3/uL (0.8-4.8) 02/05/22 19:19 [place] # (Auto) 0.5 10^3/uL (0.2-0.9) 02/05/22 19:19 Eos # (Auto) 0.1 10^3/uL (0.0-0.8) 02/05/22 19:19 Baso # (Auto) 0.0 10^3/uL (0.0-0.1) 02/05/22 19:19 Nucleated RBC % (auto) 0 % 02/05/22 19:19 Nucleated RBCs # 0.0 /100WBC 02/05/22 19:19 PT 13.20 SECONDS (12.1-14.9) 02/05/22 19:19 INR 0.97 (0.8-1.2) 02/05/22 19:19 APTT 27.5 SECONDS (23.9-36.7) 02/05/22 19:19 Sodium 135 mmol/L (136-145) L 02/05/22 19:19 Potassium 4.3 mmol/L (3.5-5.1) 02/05/22 19:19 Chloride 99 mmol/L (98-107) 02/05/22 19:19 Carbon Dioxide 22 mmol/L (22-29) 02/05/22 19:19 Anion Gap 18.3 (5-19) 02/05/22 19:19 BUN 26 mg/dL (6-20) H 02/05/22 19:19 Creatinine 0.5 mg/dL (0.5-0.9) 02/05/22 19:19 GFR Calculation 138.8 mL/min (90-130) H 02/05/22 19:19 Glucose 182 mg/dL (65-115) H 02/05/22 19:19 Calculated Osmolality 289 mOsm/kg (285-295) 02/05/22 19:19 Calcium 9.8 mg/dL (8.5-10.5) 02/05/22 19:19 Total Bilirubin 0.2 mg/dL (0.15-1.2) 02/05/22 19:19 AST 14 U/L (0-32) 02/05/22 19:19 ALT 24 U/L (0-33) 02/05/22 19:19 Alkaline Phosphatase 83 IU/L (35-105) 02/05/22 19:19 Total Protein 7.1 g/dL (6.6-8.7) 02/05/22 19:19 Albumin 4.1 g/dL (3.5-5.2) 02/05/22 19:19 Globulin 3.0 g/dL (1.3-4.6) 02/05/22 19:19 Urine Color Yellow (Yellow) 02/05/22 20:14 Urine Appearance Hazy (CLEAR) A 02/05/22 20:14 Urine pH 5 (5-7) 02/05/22 20:14 Ur Specific [place] 1.015 (1.005-1.030) 02/05/22 20:14 Urine Protein Neg (Negative) 02/05/22 20:14 Urine Glucose (UA) 4+ (Normal) H 02/05/22 20:14 Urine Ketones Negative (Negative) 02/05/22 20:14 Urine Blood Neg (Negative) 02/05/22 20:14 Urine Nitrate Negative (Negative) 02/05/22 20:14 Urine Bilirubin Neg (Negative) 02/05/22 20:14 Urine Urobilinogen Norm mg/dL (Negative) 02/05/22 20:14 Ur Leukocyte Esterase Negative (Negative) 02/05/22 20:14 Urine RBC 0-4 /hpf (0-2) H 02/05/22 20:14 Urine WBC 25-40 /hpf (0-5) H 02/05/22 20:14 Ur Squamous Epith Cells 5-10 /hpf (0-5) H 02/05/22 20:14 Amorphous Sediment Not Reportable 02/05/22 20:14 Urine Bacteria 4+ /hpf (NONE) H 02/05/22 20:14 Urine Opiates Screen Negative ng/mL (Negative) 02/05/22 20:14 Ur Barbiturates Screen Negative ng/mL (Negative) 02/05/22 20:14 Ur Phencyclidine Scrn Negative ng/mL (Negative) 02/05/22 20:14 Ur Amphetamines Screen Negative ng/mL (Negative) 02/05/22 20:14 U Benzodiazepines Scrn Negative ng/mL (Negative) 02/05/22 20:14 Urine Cocaine Screen Negative ng/mL (Negative) 02/05/22 20:14 U Marijuana (THC) Screen Negative ng/mL (Negative) 02/05/22 20:14 A&P Assessment and plan (1) Cerebrovascular accident: Status: Acute (2) Received intravenous tissue plasminogen activator (t-PA) within last 24 hours: Status: Acute (3) Amphetamine abuse: Status: Acute (4) Insulin dependent type 2 diabetes mellitus: Status: Acute Plan CVA: Post TPA in the ER. Appreciate CT head and CTA head and neck results. Admit to ICU. Monitor blood pressures every hourly. Goal blood pressure less than 180/105 mmHg. If elevated can be used labetalol. Neurochecks every hourly. Repeat CT head tomorrow morning. HbA1c last month 15.4. Lipid panel from 01/21 appreciated. Start on statin 80 mg daily. We will start on aspirin within next 24 hours given post TPA status. Check echocardiogram to rule out infective endocarditis or vegetation. Telemetry. PT/OT evaluation. Case management consultation. Appreciate neurology recommendations. Type 2 diabetes mellitus: A1c 15.4. Insulin sliding scale at high-dose protocol. Lantus 45 units twice daily. History of amphetamine abuse: Currently at rehab center at [facility]. Check blood cultures to rule out bacteremia. Continue other chronic medications. Full code. Cardiac carb consistent diet. As patient is post TPA we will hold off on any medical prophylaxis. SCDs for DVT prophylaxis. Attestations Medical Necessity Statement*: Admission for more than 2 midnights for management of post TPA care for acute stroke, type 2 diabetes mellitus Critical Care Time: The high probability of a clinically significant, sudden or life threatening deterioration of the patient's [neurological, endocrine system(s) required my full and direct attention, intervention and personal management. The critical care time is as shown. This time is in addition to time spent performing any reported procedures but includes the following: [x] Data and vital sign review and interpretation [x] Patient assessment, examination and intervention [x] Documentation [x] Medication orders and management Critical Care Time (min): 60 Coding Level of Care Code Acute Acting In[employer] for [facility] Diagnoses Cerebrovascular accident I63.9 Amphetamine abuse F15.10 Insulin dependent type 2 diabetes mellitus E11.9; Z79.4 Received intravenous tissue plasminogen activator (t-PA) within last 24 hours
--- NOTE | 2022-02-05 21:27 | PC.PHAR ---
pt states she was taken off lantus. Last dose of Lantus pt received was 40 units once daily on 01/28/22. Pt's blood sugar is still being monitored by [facility] staff.
[2022-02-05] MEDS: sodium chloride 0.9% 1,000 ML 50 ML IV (23:17)
[2022-02-06] VITALS (20 sets, daily range): BP systolic 95–149; BP diastolic 63–105; PULSE 90–110; RESP 7–23; TEMP 36.2–36.6; O2SAT 93–100
[2022-02-06 02:33] LABS: Glucose Point of Care 173 mg/dL (70-110)
[2022-02-06 05:05] LABS: Basophils % 0.5 %; Eosinophils # 0.1 10^3/uL (0.0-0.8); Eosinophils % 1.9 %; Hematocrit 33.7 % (37.0-47.0); Hemoglobin 10.6 g/dL (11.5-15.3); Lymphocytes # 2.4 10^3/uL (0.8-4.8); Lymphocytes % 33.2 %; Mean Corpuscular HGB Conc 31.5 g/dL (30.0-36.0); Mean Corpuscular Hemoglobin 25.7 pg (28.0-34.0); Mean Corpuscular Volume 81.8 fl (81-99); Mean Platelet Volume 9.2 fL (7.4-10.4); Monocytes # 0.5 10^3/uL (0.2-0.9); Monocytes % 6.7 %; Neutrophils # 4.21 10^3/uL (1.8-7.7); Neutrophils % 57.2 %; Nucleated Red Blood Cells % 0 %; Platelet Count 414 10^3/cmm (130-400); Red Blood Count 4.12 10^6/uL (4.1-5.3); Red Cell Distribution Width 15.9 % (12.1-15.1); White Blood Count 7.4 10^3/uL (4.0-10.0)
[2022-02-06 05:23] LABS: Alanine Aminotransferase 23 U/L (0-33); Albumin Level 3.8 g/dL (3.5-5.2); Alkaline Phosphatase 72 IU/L (35-105); Anion Gap 15.1 (5-19); Aspartate Amino Transferase 13 U/L (0-32); Blood Urea Nitrogen 25 mg/dL (6-20); Calcium 9.3 mg/dL (8.5-10.5); Carbon Dioxide 23 mmol/L (22-29); Chloride 106 mmol/L (98-107); Globulin 2.8 g/dL (1.3-4.6); Glomerular Filtration Rate 138.8 mL/min (90-130); Glucose 102 mg/dL (65-115); Osmolality Calculated 295 mOsm/kg (285-295); Potassium 4.1 mmol/L (3.5-5.1); Sodium 140 mmol/L (136-145); Total Bilirubin 0.2 mg/dL (0.15-1.2); Total Protein 6.6 g/dL (6.6-8.7)
[2022-02-06] MEDS: buPROPion XL (24 HR) 150 mg Tablet PO (05:29)
--- NOTE | 2022-02-06 06:39 | PC.NURSE ---
Received patient from ER at 0200. Frequent neuro exams per post TPA protocol. Patient A&O x4, behavior is eratic, hostile. Cussing at staff. ski technician at bedside, attempt to do ECHO. Patient state she wants a reall tech to do the echo. Echo not done. Patient tore off EKG, throwing items in room. Refused neuro exams
--- NOTE | 2022-02-06 07:47 | PC.NURSE ---
recieved pt awake and alert moving all extremities ect... pt yelling and demanding to go ama ... cursing staff and refusing any care .. had pulled iv out right hand refusing staff to assist her. demanding caprice hernandez called attempted with no answer at this time also demanded son phone number on stick it note in chart to be given to her .. complied with pt wishes at this time
[2022-02-06 08:40] LABS: Glucose Point of Care 121 mg/dL (70-110)
--- NOTE | 2022-02-06 09:04 | CT_ITS ---
WS: [id number] CT HEAD NONCONTRAST HISTORY: post tpa TECHNIQUE: Contiguous axial imaging performed through the brain in 2.5 mm imaging. Bone and soft tiss ue windows. Sagittal and coronal reformats reviewed. All CT scans at [facility] use at least one of these dose optimization techniques: automated exposure control; mA and/or kV adjustment per pa tient size (includes targeted exams where dose is matched to clinical indication); or iterative recon struction. DLP: 923.01 mGy.cm COMPARISON: 02/05/2022 No acute intracranial hemorrhage, midline shift or mass effect. No hemorrhage. No loss of the rosen-wh ite matter differentiation. No development of a subacute infarct. No atrophy or prior infarcts or herniation. Ventricles: Normal size with no hydrocephalus. Paranasal sinuses: As visualized are clear. Mastoid air cells: Well pneumatized. Calvarium and scalp: Skull is intact with no soft tissue edema or swelling. CT/CT head wo con* [id number] IMPRESSION: Negative head CT. No hemorrhage or edema.
--- NOTE | 2022-02-06 10:12 | P.DS_ITS ---
Discharge Providers Date of Admission: 02/05/22 21:06 Date of Discharge: February 06, 2022 Attending Provider at Admission: Shyam Camara MD Attending Provider at Discharge: Shyam Camara MD Consults: Neurology: Dr. Elaine Diagnoses at Discharge Discharge Diagnosis (1) Cerebrovascular accident: Status: Acute (2) Received intravenous tissue plasminogen activator (t-PA) within last 24 hours: Status: Acute (3) Amphetamine abuse: Status: Acute (4) Insulin dependent type 2 diabetes mellitus: Status: Acute Reason for Visit Reason for Visit: L SIDED WEAKNESS, STROKE LIKE SYMPTOMS Hospital Course Hospital Course Alexandra Huynh is a 36 year old female with past medical history of insulin- dependent type 2 diabetes mellitus, legally blind for last 8 months currently at [facility] for meth addiction since 01/21. Patient brought into the ER today because of left-sided weakness started around 6 PM which was sudden onset.? Patient did have slight numbness of the left side for around a week.? On presentation to the ER patient's NIH score was 8.? Code stroke was called in the ER and neurology was consulted after which patient received TPA.? tPA was infused at around 7:45 PM.? Hospitalist team was consulted for admission and further evaluation and management for post TPA care. Examination patient is sitting comfortably in bed.? States most of her symptoms have alleviated other than mild numbness in left leg.? She is moving her left arm without any complaints.? Denies any nausea, pain, headache, dizziness. She states she has been having numbness and on the left side for around 1 week on and off but had sudden weakness today in the evening.? States since today morning she has been having slight pain on the left side of her body from arm and legs.? She states she has significant family history of stroke and CAD in her mother. Patient admitted to the ICU for post TPA care. Blood cultures were taken to rule out septic emboli given her history of meth abuse. So far been negative and will continue to follow. Patient for now does not have any signs of infective endocarditis. During hospitalization her blood pressure remained stable. Her hospitalization was unremarkable. Repeat CT scan was done next morning which was negative for any hemorrhage. She has been discharged in hemodynamically stable condition on aspirin 81 mg daily, atorvastatin 80 mg daily. Lantus 20 units nightly has been added to her medication list. She is advised to follow-up with neurology within next 2 weeks. Physical Exam Narrative: General: No acute distress, AO x3, legally blind, mild ecchymosis of left eye most likely secondary to the rubbing which she was doing while I was in the room HEENT: PERRLA, pupils bilaterally equal and reactive Chest: Normal vesicular breath sounds, no added sounds, equal good air entry bilaterally CVS: S1-S2 regular, no murmurs, no tachycardia, no gallops, no rubs Abdomen: Soft, nontender, no organomegaly, bowel sounds present Neuro: AO x3, 5 x 5 all limbs, no slurred speech, no facial deformity Discharge Data Studies Completed and Pending Completed Studies During Hospitalization Category Date Time Status CT head wo con* [id number] Routine Cat Scan 02/06/22 09:[address] head wo con* [id number] Stat Cat Scan 02/05/22 18:58 Completed CTA head neck [CT angio headneck* [id number]] Urgent Cat Scan 02/05/22 19:29 Completed Pending at discharge Category Date Time Status Blood Culture Stat Lab 02/05/22 23:15 Results Urine Culture Stat Lab 02/05/22 20:14 Received CV. echo complete* [id number] Routine Ultrasound 02/06/22 06:00 Ordered Radiology Impressions Head/Neck CTA 02/05/22 19:29 IMPRESSION: No large vessel stenosis or occlusion. IMPRESSION: No stenosis or occlusion. REFERENCES: NASCET CRITERIA. The degree of internal carotid artery stenosis is based on NASCET criteria. Normal is no stenosis. Mild is less than 50% stenosis. Moderate is 50-69% stenosis. Severe is 70% to 99% stenosis. Total occlusion is no detectable patent lumen. Head CT 02/06/22 09:04 IMPRESSION: Negative head CT. No hemorrhage or edema. Laboratory Results WBC 7.4 10^3/uL (4.0-10.0) 02/06/22 04:32 RBC 4.12 10^6/uL (4.1-5.3) 02/06/22 04:32 Hgb 10.6 g/dL (11.5-15.3) L 02/06/22 04:32 Hct 33.7 % (37.0-47.0) L 02/06/22 04:32 MCV 81.8 fl (81-99) 02/06/22 04:32 MCH 25.7 pg (28.0-34.0) L 02/06/22 04:32 MCHC 31.5 g/dL (30.0-36.0) 02/06/22 04:32 RDW 15.9 % (12.1-15.1) H 02/06/22 04:32 Plt Count 414 10^3/cmm (130-400) H 02/06/22 04:32 MPV 9.2 fL (7.4-10.4) 02/06/22 04:32 Neut % (Auto) 57.2 % 02/06/22 04:32 Lymph % (Auto) 33.2 % 02/06/22 04:32 [place] % (Auto) 6.7 % 02/06/22 04:32 Eos % (Auto) 1.9 % 02/06/22 04:32 Baso % (Auto) 0.5 % 02/06/22 04:32 Neut # (Auto) 4.21 10^3/uL (1.8-7.7) 02/06/22 04:32 Lymph # (Auto) 2.4 10^3/uL (0.8-4.8) 02/06/22 04:32 [place] # (Auto) 0.5 10^3/uL (0.2-0.9) 02/06/22 04:32 Eos # (Auto) 0.1 10^3/uL (0.0-0.8) 02/06/22 04:32 Baso # (Auto) 0.0 10^3/uL (0.0-0.1) 02/06/22 04:32 Nucleated RBC % (auto) 0 % 02/06/22 04:32 Nucleated RBCs # 0.0 /100WBC 02/06/22 04:32 PT 13.20 SECONDS (12.1-14.9) 02/05/22 19:19 INR 0.97 (0.8-1.2) 02/05/22 19:19 APTT 27.5 SECONDS (23.9-36.7) 02/05/22 19:19 Sodium 140 mmol/L (136-145) 02/06/22 04:32 Potassium 4.1 mmol/L (3.5-5.1) 02/06/22 04:32 Chloride 106 mmol/L (98-107) 02/06/22 04:32 Carbon Dioxide 23 mmol/L (22-29) 02/06/22 04:32 Anion Gap 15.1 (5-19) 02/06/22 04:32 BUN 25 mg/dL (6-20) H 02/06/22 04:32 Creatinine 0.5 mg/dL (0.5-0.9) 02/06/22 04:32 GFR Calculation 138.8 mL/min (90-130) H 02/06/22 04:32 Glucose 102 mg/dL (65-115) 02/06/22 04:32 POC Glucose 121 mg/dL (70-110) H 02/06/22 07:36 Calculated Osmolality 295 mOsm/kg (285-295) 02/06/22 04:32 Calcium 9.3 mg/dL (8.5-10.5) 02/06/22 04:32 Total Bilirubin 0.2 mg/dL (0.15-1.2) 02/06/22 04:32 AST 13 U/L (0-32) 02/06/22 04:32 ALT 23 U/L (0-33) 02/06/22 04:32 Alkaline Phosphatase 72 IU/L (35-105) 02/06/22 04:32 Total Protein 6.6 g/dL (6.6-8.7) 02/06/22 04:32 Albumin 3.8 g/dL (3.5-5.2) 02/06/22 04:32 Globulin 2.8 g/dL (1.3-4.6) 02/06/22 04:32 Urine Color Yellow (Yellow) 02/05/22 20:14 Urine Appearance Hazy (CLEAR) A 02/05/22 20:14 Urine pH 5 (5-7) 02/05/22 20:14 Ur Specific [place] 1.015 (1.005-1.030) 02/05/22 20:14 Urine Protein Neg (Negative) 02/05/22 20:14 Urine Glucose (UA) 4+ (Normal) H 02/05/22 20:14 Urine Ketones Negative (Negative) 02/05/22 20:14 Urine Blood Neg (Negative) 02/05/22 20:14 Urine Nitrate Negative (Negative) 02/05/22 20:14 Urine Bilirubin Neg (Negative) 02/05/22 20:14 Urine Urobilinogen Norm mg/dL (Negative) 02/05/22 20:14 Ur Leukocyte Esterase Negative (Negative) 02/05/22 20:14 Urine RBC 0-4 /hpf (0-2) H 02/05/22 20:14 Urine WBC 25-40 /hpf (0-5) H 02/05/22 20:14 Ur Squamous Epith Cells 5-10 /hpf (0-5) H 02/05/22 20:14 Amorphous Sediment Not Reportable 02/05/22 20:14 Urine Bacteria 4+ /hpf (NONE) H 02/05/22 20:14 Urine Opiates Screen Negative ng/mL (Negative) 02/05/22 20:14 Ur Barbiturates Screen Negative ng/mL (Negative) 02/05/22 20:14 Ur Phencyclidine Scrn Negative ng/mL (Negative) 02/05/22 20:14 Ur Amphetamines Screen Negative ng/mL (Negative) 02/05/22 20:14 U Benzodiazepines Scrn Negative ng/mL (Negative) 02/05/22 20:14 Urine Cocaine Screen Negative ng/mL (Negative) 02/05/22 20:14 U Marijuana (THC) Screen Negative ng/mL (Negative) 02/05/22 20:14 Vitals Last Vital Signs Temp 97.6 F 02/06/22 05:43 Pulse 90 02/06/22 05:43 Resp 21 H 02/06/22 05:00 BP 129/88 02/06/22 05:00 Pulse Ox 97 02/06/22 05:00 Discharge Plan Discharge Patient Disposition: Xfer Other Condition: Stable Prescriptions: New Lantus Solostar U-100 Insulin 100 unit/mL (3 mL) insulin pen 20 unit SUBCUT QAM Qty: 15 0RF aspirin 81 mg tablet,delayed release (DR/EC) 81 mg PO DAILY Qty: 30 0RF atorvastatin 80 mg tablet 80 mg PO DAILY Qty: 30 0RF Continued metformin 500 mg Tablet 1,000 mg PO BID 0RF Zofran 8 mg Tablet 8 mg PO Q8H PRN (Reason: Nausea) 0RF hydroxyzine pamoate 50 mg Capsule 50 mg PO TID PRN (Reason: Anxiety) 0RF mirtazapine 15 mg Tablet 15 mg PO DAILY 0RF bupropion HCl 150 mg Tablet Extended Release 24 Hr 150 mg PO QAM 0RF Januvia 100 mg Tablet 100 mg PO DAILY 0RF melatonin 5 mg Tablet 5 mg PO BEDTIME 0RF Jardiance 25 mg Tablet 25 mg PO DAILY 0RF Discontinued atorvastatin 20 mg Tablet 20 mg PO BEDTIME 0RF Discharge Orders: Discharge Order (Routine); Ordered 02/06/22 Ordered By: Shyam Camara Referrals: Alycia Elaine MD [Physician] - 2 weeks Discharge Diet: Usual diet Discharge Activity: Resume usual activity and Increase activity as tolerated Patient Instructions: Opioid Safety Activity Restrictions/Additional Instructions: Please follow-up with your primary care provider within next 1 week. Please follow-up with Dr. Elaine from neurology in 2 weeks. Lantus 20 units daily in the morning has been added to your medication list along with antidiabetic. Please take aspirin 81 mg daily and atorvastatin 80 mg daily. Discharge Attestations Time Spent in Discharge Care*: greater than 30 min Specific Discharge Activities: educating patient, discussing with pcp/other providers, discussing with renal case manager/social workers/dc planners, documenting/other paperwork and evaluating patient/reviewing data Status at Discharge: Cognitive status at discharge: cognitively intact , Behavioral status at discharge: can be uncooperative , Functional status at discharge: independent ambulation , Overall status at discharge: patient is back to baseline Quality Metrics Clinical Quality Measures [ Cerebrovascular Accident { Contraindication to Antithrombotic: None; antithrombotic prescribed; Contraindication to Anticoagulation: Overlap treatment not indicated; Contraindication to Statin: None; Statin prescribed; Contraindication to tPA: None; TPA given; Reason stroke education not provided: Stroke education provided to patient; Rehab services assessed: Activities of daily living assessment, Physical therapy, Speech therapy;}] Coding Level of Care Code Acute [facility] FW DC note Diagnoses Cerebrovascular accident I63.9 Received intravenous tissue plasminogen activator (t-PA) within last 24 hours Amphetamine abuse F15.10 Insulin dependent type 2 diabetes mellitus E11.9; Z79.4
--- NOTE | 2022-02-06 10:39 | PC.OT ---
OT EVALUATION ORDERS RECEIVED. PATIENT HAD ELOPED FROM UNIT AND WAS RETURNED WITH 1:1 SITTER. NURSING ASKS THAT OT EVALUATION BE PERFORMED VIA OBSERVATION. THIS THERAPIST OBSERVED THE PATIENT FOR SEVERAL MINUTES FROM OUTSIDE OF ROOM. PATIENT DEMONSTRATES NO DEFICITS IN TRUNK STRENGTH OR UE STRENGTH. WAS NOTED WITH ABILITY TO DRESS HERSELF INDEPENDENTLY. NO FURTHER SKILLED OT REQUIRED .
--- NOTE | 2022-02-06 11:22 | PC.NURSE ---
pt very restless and agitated up in room , became angry with staff accusing of invading her space and dont touch her was assisting pt to bathroom as vision severely impaired. staff from [facility] here to cigar packer and picker pt .. ct done and cleared for return to rehab had already removed all monitor and iv lines prior herself requesting to leave now... assisted with dressing and to car
--- NOTE | 2022-02-06 11:36 | PC.CHAP ---
Pastoral Care Encounter/Spiritual Assessment Type of Contact [] Declined draw operator visit [] Patient/Family/Request visit [] Outpatient visit [] Follow-up visit [] Physician referral [] Code/Alert [x] Routine visit [] Staff referral [] Actively dying [] Patient sleeping [] Family support [] [] Out of room [] Palliative care [] [] Receiving care in room [] Pre-surgical visit [] Trauma [] Long length of stay [x] ICU visit [x] Other: caregiver present... patient blind Relational/Emotional Strength [] Patient feels connected with others/family/visitors/staff [] Distress [] Loneliness/isolation [] Abandonment Spirituality of Patient [] Person of Odalis [] Attends Druze of their Odalis [] Believes in Prayer [] Reads Bible or Orthodoxy materials [] There are Spiritual issues to be addressed Area Captain Interventions [x] Prayer [x] Active listening [x] Non-anxious presence [x] Spiritual/emotional support [] Crisis/trauma care [] Spiritual counseling [] Bereavement support [] Provided bereavement packet [] Provided Bible/devotional materials [] Provided toy/stuffed animal, coloring book to patient or family member [] Provided Communion [] Anointing/[place] [] Salvation [x] Completed spiritual assessment [] Other: Impact on Illness or Injury [] Angry [] Fearful [] Anxious [] Often cries [] Exhaustion [] Unable to work [] Unable to attend methodist [] Unable to walk/stand [] Unable to read [] Unable to drive [] Unable to eat/drink [] Unable to sleep [] Unable to be with family [] Patient intubated [] Other: Summary working through addition... children being held by state.. low self worth.. has a desire to change.. but no signs of strength... Time spent with patient 10 min
--- NOTE | 2022-02-06 19:03 | PM.SAN ---
Stroke Alert Activation ED Arrival Date: 02/05/22 ED Arrival Time: 18:58 ED Physican at Bedside: 18:58 Last Known Normal/at Baseline: < 1 hour ago Other Last Known Well Infomation: I am dictating this at 7 PM on 02/06. I saw this patient at 8:00 this morning and she was confused to a mild degree, paranoid and said that everyone was making fun of her and she wanted to go back to [facility]. She had no focal findings. She is blind from diabetes. She had full facial movements and her NIH stroke scale score was 0. She came to the emergency department last night by ambulance from [facility] with left-sided weakness that started less than an hour before she arrived. Stroke alert was called and I immediately called and talked with the nurse who took the call at the hospital. As the patient rolled in, Dr. Mauricio followed her to CAT scan and performed an NIH stroke scale on the way. She had flaccid weakness on the left but no gaze deviation. She told Dr. Mauricio that she had been numb on the left side off and on for a week but the weakness started abruptly just before she got here. Her blood pressure was well controlled and her blood sugar was only in the 200s. Her CT scan of the head was negative. I was in my office and reviewed her CAT scan. I talked with Dr. Mauricio and we agreed that the patient should be treated based upon a abrupt onset of motor weakness with NIH stroke scale score of 8. Her symptoms gradually cleared after treatment. I talked with Dr. Mauricio later after the patient had CT angiogram and he said she was starting to regain some function on the left. The patient says she is back to baseline and she wants to go back to [facility] to pursue her sobriety. She insists that everybody is making fun of her and tracking her all over the hospital to confuse her about where she is. She would like to sign out AGAINST MEDICAL ADVICE. I return to my office and reviewed her CAT scan after it was performed at 9 AM. I talked with Dr. Almanza as the patient was insistent that she was going to leave and I saw no reason to restrain her since her CAT scan shows no sign of hemorrhage. She does not have an ischemic stroke at this time. Stroke Alert Activated by: [facility] Stroke Alert Activation Time: 18:45 Stroke MD @ Bedside Time: 18:45 Stroke Alert Data/Treatment CT Impression: Her CT the scan of the head was unremarkable. Stroke Risk Factors: diabetes mellitus and substance abuse tPA Started Time: tPA Started - Time: 19:15 Standardized Stroke Orders Used: Yes Critical Care Time Critical Care Time: 30 - 74 mins A&P Assessment and plan (1) Received intravenous tissue plasminogen activator (t-PA) within last 24 hours: I was called for stroke team and worked with Dr. Mauricio. I reviewed the patient's CAT scan and reviewed her blood pressure, NIH stroke scale, blood sugar and time of last known well with Dr. Mauricio. We agreed on TPA treatment and the patient received a bolus 15 minutes after arrival to the emergency room. Her CT angiogram of the cervical and intracranial vessels was entirely unremarkable. I evaluated the patient this morning and found no residual neurologic deficit. She remains blind. She is paranoid and angry and insisting on leaving AGAINST MEDICAL ADVICE and I see no reason not to allow her to do that. Status: Acute (2) Amphetamine abuse: Status: Acute (3) Cerebrovascular accident: Status: Acute (4) Insulin dependent type 2 diabetes mellitus: Status: Acute Coding Level of Care Code Acute Feather Duster Winder for [facility] Diagnoses Received intravenous tissue plasminogen activator (t-PA) within last 24 hours Amphetamine abuse F15.10 Cerebrovascular accident I63.9 Insulin dependent type 2 diabetes mellitus E11.9; Z79.4
== END 2022-02-06 11:00 | disposition home or self-care (01) | DRG 62 ==
LOC: ER 22:25 → ICU 23:09
PROVIDERS: Admitting Provider Student in an Organized Health Care Education/Training Program; Emergency Provider Emergency Medicine; Visit Provider Student in an Organized Health Care Education/Training Program
DX: I63.9 Cerebral infarction, unspecified (principal); G81.94 Hemiplegia, unspecified affecting left nondominant side; R29.708 NIHSS score 8; F15.11 Other stimulant abuse, in remission; E11.69 Type 2 diabetes mellitus with other specified complication; H54.7 Unspecified visual loss; Z87.891 Personal history of nicotine dependence; Z82.3 Family history of stroke; Z82.49 Family history of ischemic heart disease and other diseases of the circulatory system
CPT/HCPCS: 36415; 36416; 70450; 70496; 70498; 80053; 80306; 81001; 82962; 85025; 85610; 85730; 87040; 87077; 87086; 87186; 92523; 92610; 93005; 94664; 96374; 97116; 99285; J2997; J7030; Q9967

== ENCOUNTER 2022-02-06 14:50 | Emergency (ER) | payer MEDICAID, SELFPAY ==
[2022-02-06 14:51] VITALS: BP 132/98; PULSE 103; RESP 16; O2SAT 98; BMI 27.0
--- NOTE | 2022-02-06 14:59 | CT_ITS ---
WS: [id number] CT HEAD NONCONTRAST HISTORY: post tpa TECHNIQUE: Contiguous axial imaging performed through the brain in 2.5 mm imaging. Bone and soft tiss ue windows. Sagittal and coronal reformats reviewed. All CT scans at [facility] use at least one of these dose optimization techniques: automated exposure control; mA and/or kV adjustment per pa tient size (includes targeted exams where dose is matched to clinical indication); or iterative recon struction. DLP: 945.2 mGy.cm COMPARISON: 02/06/2022 and 02/05/2022 No acute intracranial hemorrhage, midline shift or mass effect. No atrophy or prior infarcts or herniation. Ventricles: Normal size with no hydrocephalus. Paranasal sinuses: As visualized are clear. Mastoid air cells: Well pneumatized. Calvarium and scalp: Skull is intact with no soft tissue edema or swelling. Abnormal density in the LEFT globe. There is increased density layering the posterior globe. Not prog ressed since the prior study from 02/05/2022. Could be a small amount of blood or increased protein wit hin the globe. CT/CT head wo con* [id number] IMPRESSION: 1. No acute intracranial hemorrhage or edema. 2. Abnormal density layering in the posterior LEFT globe. Noted on the prior C T from 02/05/2022 also. May be chronic. Could be related to increased protein/sandy ris within the globe or hemorrhage. This may be a known finding. Correlate with patient's clinical history. Recommend ophthalmology consult if this is an unkn own finding for the patient.
--- NOTE | 2022-02-06 15:10 | ECG_ITS ---
[facility] Test Date: 2022-02-06 Pat Name: Alexandra Huynh Department: Room: Gender: Female Superintendent Recreation: : 1985 Requested By: Al Cazares Order Number: [id number] Flory MD: Gabrielle Diego M.D. Measurements Intervals [place] Rate: 94 P: 59 OH: 145 QRS: 48 QRSD: 109 T: 49 QT: 356 QTc: 447 Interpretive Statements SINUS RHYTHM POSSIBLE LEFT ATRIAL ENLARGEMENT [-0.1mV P-WAVE IN V1/V2] Compared to ECG 02/05/2022 19:14:12 No significant changes Electronically Signed On 02-07-2022 5:55:50 DIRECTOR OF GROUP SALES by Gabrielle Diego M.D. [id number]
--- NOTE | 2022-02-06 15:22 | W.ED.WEAKNES ---
HPI - Weakness General: Chief complaint: Weakness Stated complaint: headache, left sided tiredness Time Seen by Provider: 02/06/22 14:52 Source: patient Mode of arrival: EMS Limitations: altered mental status History of Present Illness: 36-year-old female presents emergency room complaining left-sided weakness and chest pain. She was seen last night thought to have a stroke and given TPA. She was discharged approximately 5 hours ago. She returns now with headache left-sided weakness and chest discomfort. Is difficult to get history from her she states she has had the headache and weakness since she left on is actually getting a little bit worse now. I talked to the physician of discharge for this morning she had refused to get the second CT at this morning and seemed to be doing well and was insisting on leaving and ultimately after consultation with neurology decided to go ahead and let her leave. She denies any recent drug use she does have a history of methamphetamine use. She denies any trauma or falls or hitting her head since being discharged. Pain does not radiate into her neck or back or into her arms but she does have left arm weakness. She denies shortness of breath. MD Complaint: generalized weakness Onset (ago): hour(s) Duration: constant Location: generalized Migration: none Severity: moderate Quality: tingling and numbness Relieving factors: none Exacerbating factors: none Associated symptoms: Reports chest pain, headache(s) and nausea; Denies chills, confusion, melena, decreased appetite, diaphoresis, fever(s), myalgias, short of breath, syncope or vomiting Review of Systems Const: Denies: fever(s), chills or diaphoresis ENMT: Reports: nasal discharge; Denies: throat pain, ear or mastoid pain or nasal congestion Card: Reports: chest pain; Denies: edema or syncope Resp: Denies: dyspnea, productive cough or non-productive cough GI: Reports: nausea; Denies: vomiting or melena Neuro: Reports: headache(s); Denies: confusion [facility] ED PFSH: Medical History Amphetamine abuse Bacteremia Insulin dependent type 2 diabetes mellitus Legally blind Surgical History History of incision and drainage Family History Other CAD (coronary artery disease) Diabetes Hyperlipidemia Stroke Social History Smoking and tobacco status: former smoker Alcohol intake: unknown Desire information about substance/drug rehabilitation?: Yes Counseling given: Yes Caregiver/support person: No Lives independently: Yes Household members: other [facility] Physical Exam Const: ORIENTATION/CONSCIOUSNESS: Yes awake HENMT: COMMON NORMALS: normocephalic, atraumatic and hearing grossly normal bilaterally HEAD & SCALP: normocephalic and atraumatic Neck/C-Spine: COMMON NORMALS: no JVD Resp: COMMON NORMALS: normal respiratory effort, No retractions, No use of accessory muscles and clear to auscultation bilaterally AUSCULTATION: clear to auscultation bilaterally Cardio: COMMON NORMALS: no JVD, regular rate, regular rhythm and No murmurs present (Cardio) RATE: regular rate RHYTHM: regular rhythm GI: COMMON NORMALS: Soft to palpation and No hepatosplenomegaly present AUSCULTATION: Yes normoactive bowel sounds PALPATION: Yes Soft to palpation, No Tenderness to palpation present (GI), No Guarding due to palpation present (GI) and Yes No hepatosplenomegaly present Extremity: COMMON NORMALS: normal to inspection, capillary refill normal, no clubbing, cyanosis or edema, no calf tenderness and no pedal edema Skin: COMMON NORMALS: no rashes or lesions noted GENERAL SKIN EXAM: no rashes or lesions noted Course Vital Signs: Vital signs: Vital Signs Pulse Rate 103 H 02/06/22 14:51 Respiratory Rate 16 02/06/22 14:51 Blood Pressure 132/98 02/06/22 14:51 Pulse Oximetry 98 02/06/22 14:51 MDM - Weakness Medical Decision Making Patient was TPA last night for an acute CVA and was discharged home this morning she returns now repeat CT of her head there is no sign of bleeding all her symptoms resolved she is completely back to active her only concern is about how much dancing she may do. She wants to be discharged home at this point really no anything to keep her she does not have any persistent symptoms when she arrived here she really did not have any particular symptoms other than she seemed to be overly sedate. Follow-up with neurology as previously scheduled. Medical Records I reviewed the patient's medical records. Lab Data I reviewed the patient's lab results. : 02/06/22 15:30 02/06/22 15:[address] 02/06/22 14:59 IMPRESSION: 1. No acute intracranial hemorrhage or edema. 2. Abnormal density layering in the posterior LEFT globe. Noted on the prior CT from 02/05/2022 also. May be chronic. Could be related to increased protein/debris within the globe or hemorrhage. This may be a known finding. Correlate with patient's clinical history. Recommend ophthalmology consult if this is an unknown finding for the patient. Laboratory Results WBC 7.8 10^3/uL (4.0-10.0) 02/06/22 15: RBC 4.19 10^6/uL (4.1-5.3) 02/06/22 15: Hgb 10.9 g/dL (11.5-15.3) L 02/06/22 15: Hct 34.7 % (37.0-47.0) L 02/06/22 15: MCV 82.8 fl (81-99) 02/06/22 15: MCH 26.0 pg (28.0-34.0) L 02/06/22 15: MCHC 31.4 g/dL (30.0-36.0) 02/06/22 15: RDW 16.0 % (12.1-15.1) H 02/06/22 15: Plt Count 461 10^3/cmm (130-400) H 02/06/22 15: MPV 8.7 fL (7.4-10.4) 02/06/22 15: Neut % (Auto) 70.2 % 02/06/22 15: Lymph % (Auto) 22.1 % 02/06/22 15: Holmes % (Auto) 5.8 % 02/06/22 15: Eos % (Auto) 1.0 % 02/06/22 15: Baso % (Auto) 0.5 % 02/06/22 15:30 Neut # (Auto) 5.46 10^3/uL (1.8-7.7) 02/06/22 15:30 Lymph # (Auto) 1.7 10^3/uL (0.8-4.8) 02/06/22 15:30 Holmes # (Auto) 0.5 10^3/uL (0.2-0.9) 02/06/22 15:30 Eos # (Auto) 0.1 10^3/uL (0.0-0.8) 02/06/22 15:30 Baso # (Auto) 0.0 10^3/uL (0.0-0.1) 02/06/22 15:30 Nucleated RBC % (auto) 0 % 02/06/22 15:30 Nucleated RBCs # 0.0 /100WBC 02/06/22 15:30 Sodium 135 mmol/L (136-145) L 02/06/22 15:30 Potassium 4.0 mmol/L (3.5-5.1) 02/06/22 15:30 Chloride 98 mmol/L (98-107) 02/06/22 15:30 Carbon Dioxide 24 mmol/L (22-29) 02/06/22 15:30 Anion Gap 17.0 (5-19) 02/06/22 15:30 BUN 26 mg/dL (6-20) H 02/06/22 15:30 Creatinine 0.6 mg/dL (0.5-0.9) 02/06/22 15:30 GFR Calculation 112.5 mL/min (90-130) 02/06/22 15:30 Glucose 222 mg/dL (65-115) H 02/06/22 15:30 Calculated Osmolality 292 mOsm/kg (285-295) 02/06/22 15:30 Lactic Acid 1.0 mmol/L (0.5-2.2) 02/06/22 15:30 Calcium 9.5 mg/dL (8.5-10.5) 02/06/22 15:30 Total Bilirubin 0.2 mg/dL (0.15-1.2) 02/06/22 15:30 AST 12 U/L (0-32) 02/06/22 15:30 ALT 22 U/L (0-33) 02/06/22 15:30 Alkaline Phosphatase 74 IU/L (35-105) 02/06/22 15:30 Creatine Kinase 46 U/L (26-192) 02/06/22 15:30 Troponin T Baseline 12 ng/L (0-10) H 02/06/22 15:30 Troponin T 120 Minute 15.81 ng/L (0-10) H 02/06/22 17:45 Delta Troponin T 3.81 ABS# (0-10) 02/06/22 17:45 Total Protein 6.7 g/dL (6.6-8.7) 02/06/22 15:30 Albumin 3.9 g/dL (3.5-5.2) 02/06/22 15:30 Globulin 2.8 g/dL (1.3-4.6) 02/06/22 15:30 Lipase 41 U/L (13-60) 02/06/22 15:30 Urine Opiates Screen Negative ng/mL (Negative) 02/06/22 17:10 Ur Barbiturates Screen Negative ng/mL (Negative) 02/06/22 17:10 Ur Phencyclidine Scrn Negative ng/mL (Negative) 02/06/22 17:10 Ur Amphetamines Screen Negative ng/mL (Negative) 02/06/22 17:10 U Benzodiazepines Scrn Negative ng/mL (Negative) 02/06/22 17:10 Urine Cocaine Screen Negative ng/mL (Negative) 02/06/22 17:10 U Marijuana (THC) Screen Negative ng/mL (Negative) 02/06/22 17:10 Ethyl Alcohol < 10 mg/dL (0-10) 02/06/22 15:30 Discharge Plan Discharge Patient Disposition: Home Clinical Impression: Cerebrovascular accident, Received intravenous tissue plasminogen activator (t-PA) within last 24 hours, Insulin dependent type 2 diabetes mellitus, Amphetamine abuse Condition: Stable Prescriptions: No Action lisinopril 10 mg Tablet 10 mg PO DAILY 0RF metformin 500 mg Tablet 1,000 mg PO BID 0RF atorvastatin 20 mg Tablet 20 mg PO BEDTIME 0RF ondansetron HCl [Zofran] 8 mg Tablet 8 mg PO Q8H PRN (Reason: Nausea) 0RF hydroxyzine pamoate 50 mg Capsule 50 mg PO TID PRN (Reason: Anxiety) 0RF mirtazapine 15 mg Tablet 15 mg PO DAILY 0RF bupropion HCl 150 mg Tablet Extended Release 24 Hr 150 mg PO QAM 0RF Januvia 100 mg Tablet 100 mg PO DAILY 0RF melatonin 5 mg Tablet 5 mg PO BEDTIME 0RF Jardiance 25 mg Tablet 25 mg PO DAILY 0RF Lantus Solostar U-100 Insulin 100 unit/mL (3 mL) insulin pen 20 unit SUBCUT QAM Qty: 15 0RF aspirin 81 mg tablet,delayed release (DR/EC) 81 mg PO DAILY Qty: 30 0RF atorvastatin 80 mg tablet 80 mg PO DAILY Qty: 30 0RF Discharge Orders: Discharge ED (Routine); Ordered 02/06/22 Ordered By: Al Sheridan Discharge Diet: Usual diet Discharge Activity: Increase activity as tolerated Patient Instructions: Opioid Safety Activity Restrictions/Additional Instructions: 10 you same discharge directions as you received earlier today when discharged from the hospital. Coding Level of Care Code ED Tuberculosis Specialist for Mylene Fwd Exam Comprehensive
[2022-02-06 15:36] LABS: Basophils % 0.5 %; Eosinophils # 0.1 10^3/uL (0.0-0.8); Hematocrit 34.7 % (37.0-47.0); Hemoglobin 10.9 g/dL (11.5-15.3); Lymphocytes # 1.7 10^3/uL (0.8-4.8); Lymphocytes % 22.1 %; Mean Corpuscular HGB Conc 31.4 g/dL (30.0-36.0); Mean Corpuscular Volume 82.8 fl (81-99); Mean Platelet Volume 8.7 fL (7.4-10.4); Monocytes # 0.5 10^3/uL (0.2-0.9); Monocytes % 5.8 %; Neutrophils # 5.46 10^3/uL (1.8-7.7); Neutrophils % 70.2 %; Nucleated Red Blood Cells % 0 %; Platelet Count 461 10^3/cmm (130-400); Red Blood Count 4.19 10^6/uL (4.1-5.3); White Blood Count 7.8 10^3/uL (4.0-10.0)
[2022-02-06 15:59] LABS: Troponin(5th) Baseline 12 ng/L (0-10)
[2022-02-06 16:01] LABS: Alanine Aminotransferase 22 U/L (0-33); Albumin Level 3.9 g/dL (3.5-5.2); Alkaline Phosphatase 74 IU/L (35-105); Aspartate Amino Transferase 12 U/L (0-32); Blood Urea Nitrogen 26 mg/dL (6-20); Calcium 9.5 mg/dL (8.5-10.5); Carbon Dioxide 24 mmol/L (22-29); Chloride 98 mmol/L (98-107); Creatine Phosphokinase 46 U/L (26-192); Globulin 2.8 g/dL (1.3-4.6); Glomerular Filtration Rate 112.5 mL/min (90-130); Glucose 222 mg/dL (65-115); Lipase 41 U/L (13-60); Osmolality Calculated 292 mOsm/kg (285-295); Sodium 135 mmol/L (136-145); Total Bilirubin 0.2 mg/dL (0.15-1.2); Total Protein 6.7 g/dL (6.6-8.7)
[2022-02-06 16:12] LABS: Alcohol Level < 10 mg/dL (0-10)
[2022-02-06 17:48] LABS: Amphetamines Screen Urine Negative (Negative); Barbiturates Screen Urine Negative (Negative); Benzodiazepines Screen Urine Negative (Negative); Cocaine Screen Urine Negative (Negative); Opiate Screen Urine Negative (Negative); PCP Screen Urine Negative (Negative); THC Screen Urine Negative (Negative)
[2022-02-06 18:38] LABS: Troponin 5 2HR 15.81 ng/L (0-10)
[2022-02-06 18:44] LABS: Troponin 5 2HR Delta 3.81 ABS# (0-10)
--- NOTE | 2022-02-06 18:47 | PC.RESP ---
PT REFUSED EKGS, NOTIFIED
--- NOTE | 2022-02-06 20:32 | PC.NURSE ---
Pt. came out into the hallway , yelling for help from her nurse. Daily financial examiner and myself walked to the room to help patient. The patient is yelling over staff while they are trying to talk and keeps telling staff to stay 6 ft from her because she is blind. Daily Rn tried to escort patient back to her room to wait on her ride home and the pt. becomes more agitated and yells do not touch me! The patient will not answer questions and continues to talk over staff. I waited for her to calm and gave her verbal instruction to walk back into her room and back to her bed. I then asked the patient what it is that I could do for her. The patient states that her left eye is irritated and her left ear is stuffy. I then asked for permission to look in patients ear and eye. Her ear had earwax in it, so I asked to flush her ear with some saline and the pt. states that, that would be fine. I washed her ear out and told her to continue to clean at home. I then looked at her eye. The patients eye is red and irritated like she had poked it, so I told this to the patient. The patient states that she did poke her eye. I then asked for permission to remove the pt's IV so that she could be discharged home and she said okay. The patient then asked for her discharge paperwork and I gave it to her and went over it with her. The patient states that she does not believe that we are a good hospital and she will not return to this hospital. I explained that it is important for her to follow up with her doctor and neurologist. She states that she will because they will do whats best for her and not whats best for them.
--- NOTE | 2022-02-06 20:52 | PC.NURSE ---
Pt. discharged to [facility] via wheelchair. before leaving , the patient asked what time it was. I told her that it was 2042 and she said so is breakfast over, because I didn't get breakfast . I explained that it was 2042 at night not 0843. The patient is angry because we do not have food trays. I have explained this to the quarter backer and they are going to stop and get her food on the way home. The patient is angry and rude while loading into the van.
== END 2022-02-06 20:56 | disposition home or self-care (01) ==
PROVIDERS: Emergency Provider Family Medicine
DX: I63.9 Cerebral infarction, unspecified (principal); E11.9 Type 2 diabetes mellitus without complications; F15.10 Other stimulant abuse, uncomplicated; Z79.84 Long term (current) use of oral hypoglycemic drugs; Z79.82 Long term (current) use of aspirin; Z79.4 Long term (current) use of insulin; Z87.891 Personal history of nicotine dependence
CPT/HCPCS: 36415; 70450; 80053; 80306; 80307; 82550; 83605; 83690; 84484; 85025; 93005; 99283

== ENCOUNTER 2022-02-09 19:45 | Emergency (ER) | payer MEDICAID, SELFPAY ==
[2022-02-09 19:47] VITALS: BP 105/83; PULSE 96; RESP 18; TEMP 36.5; O2SAT 98; BMI 26.4
--- NOTE | 2022-02-09 19:47 | W.ED.AMS ---
Documented by User: Lewis Ramos MD 02/14/22 07:07 HPI - Altered Mental Status General: Chief Complaint: Altered Mental Status Stated Complaint: AMS Time Seen by Provider: 02/09/22 19:47 Limitations: altered mental status History of Present Illness: Ms. Huynh is a 36-year-old lady with complex past medical history including diabetes and recent TPA administration for stroke who presents to the emergency department due to the emergency department due to altered mental status. The patient reports severe migratory pain that comes in waves however cannot tell me how long the pain has been going on, any specific precipitating events, history of similar, or anything else regarding her symptoms. At times she is writhing around on the bed. She denies substance abuse or any trauma. No other specific changes in health, exacerbating, or alleviating factors identified. Review of Systems General: Reports: ROS unobtainable due to mental status [facility] ED PFSH: Medical History (Updated 02/13/22 @ 11:58 by Troy Sibley MD) Amphetamine abuse Bacteremia Insulin dependent type 2 diabetes mellitus Legally blind Surgical History History of incision and drainage Family History Other CAD (coronary artery disease) Diabetes Hyperlipidemia Stroke Social History Smoking and tobacco status: former smoker Alcohol intake: unknown Desire information about substance/drug rehabilitation?: Yes Counseling given: Yes Caregiver/support person: No Lives independently: Yes Household members: other [facility]: [facility] Physical Exam Const: COMMON NORMALS: alert GENERAL APPEARANCE: in distress (Episodic due to pain) and disheveled HENMT: COMMON NORMALS: normocephalic and atraumatic HEAD & SCALP: normocephalic and atraumatic Eye: COMMON NORMALS: conjunctivae normal CONJUNCTIVA: Yes conjunctivae normal SCLERA: sclerae normal Neck/C-Spine: COMMON NORMALS: supple GENERAL: Yes trachea midline Resp: COMMON NORMALS: normal respiratory effort and clear to auscultation bilaterally EFFORT & INSPECTION: Yes able to speak in complete sentences AUSCULTATION: clear to auscultation bilaterally Cardio: COMMON NORMALS: regular rate and regular rhythm RATE: regular rate RHYTHM: regular rhythm GI: COMMON NORMALS: Soft to palpation PALPATION: Yes Soft to palpation and No Tenderness to palpation present (GI) PERCUSSION: normal to percussion Extremity: GENERAL: Yes normal exam except as noted and No edema Neuro: COMMON NORMALS: moves all extremities SENSORIUM/ORIENTATION: Yes alert and No Orientation impaired Course ED course: - Patient was seen and evaluated by me at bedside - Patient placed on cardiac monitors, IV access obtained - Initial evaluation notable for exam as above - Given symptoms and need for further ED evaluation Ativan ordered. - Labs notable for no leukocytosis, normocytic anemia. Metabolic panel with similar findings compared to prior if not improved. Urinalysis with hematuria but this likely is contamination as patient is menstrual period. - CT head negative for acute hemorrhage. Remainder of CT ordered given patient's mental status and possibility of trauma in the context of recent TPA use. Pending at time of care handoff. - Patient care handed off to overnight ED physician Dr. Lawrence pending completion of ED evaluation with likely plan to discharge when clinically satisfactory. Note: Click bubbles or prepopulated ag in note writing are used for assistance with data collection and billing and are inherently more limited than narrative and other text portions of this note. Please use narrative for additional clinical history and defer to narrative/free test for any case of contradictory information. If information appears in only free text or click bubble it should be considered present or absent as reported. Please contact note pattern chart writer for clarifications of clinical information or contradictory information. MDM is a brief summary, contradictory or erroneous seeming information should be clarified and full note should be reviewed. Vital Signs: Vital signs: Vital Signs Temperature 97.7 F 02/09/22 19:47 Pulse Rate 79 02/10/22 00:36 Respiratory Rate 18 02/10/22 02:20 Blood Pressure 102/74 02/10/22 02:20 Pulse Oximetry 96 02/10/22 02:20 MDM - Altered Mental Status Medical Records I reviewed the patient's medical records. Lab Data I reviewed the patient's lab results. : 02/09/22 19:50 02/09/22 19:[address] 02/09/22 19:52 IMPRESSION: No acute intracranial abnormality. Chest/Abdomen/Pelvis CT 02/09/22 22:30 IMPRESSION: No acute findings. IMPRESSION: Constipation. Laboratory Results WBC 8.6 10^3/uL (4.0-10.0) 02/09/22 19:50 RBC 4.36 10^6/uL (4.1-5.3) 02/09/22 19:50 Hgb 11.4 g/dL (11.5-15.3) L 02/09/22 19:50 Hct 36.2 % (37.0-47.0) L 02/09/22 19:50 MCV 83.0 fl (81-99) 02/09/22 19:50 MCH 26.1 pg (28.0-34.0) L 02/09/22 19:50 MCHC 31.5 g/dL (30.0-36.0) 02/09/22 19:50 RDW 15.7 % (12.1-15.1) H 02/09/22 19:50 Plt Count 468 10^3/cmm (130-400) H 02/09/22 19:50 MPV 8.6 fL (7.4-10.4) 02/09/22 19:50 Neut % (Auto) 69.5 % 02/09/22 19:50 Lymph % (Auto) 23.9 % 02/09/22 19:50 Leon % (Auto) 4.4 % 02/09/22 19:50 Eos % (Auto) 1.4 % 02/09/22 19:50 Baso % (Auto) 0.6 % 02/09/22 19:50 Neut # (Auto) 5.99 10^3/uL (1.8-7.7) 02/09/22 19:50 Lymph # (Auto) 2.1 10^3/uL (0.8-4.8) 02/09/22 19:50 Leon # (Auto) 0.4 10^3/uL (0.2-0.9) 02/09/22 19:50 Eos # (Auto) 0.1 10^3/uL (0.0-0.8) 02/09/22 19:50 Baso # (Auto) 0.1 10^3/uL (0.0-0.1) 02/09/22 19:50 Nucleated RBC % (auto) 0 % 02/09/22 19:50 Nucleated RBCs # 0.0 /100WBC 02/09/22 19:50 Sodium 136 mmol/L (136-145) 02/09/22 19:50 Potassium 4.5 mmol/L (3.5-5.1) 02/09/22 19:50 Chloride 98 mmol/L (98-107) 02/09/22 19:50 Carbon Dioxide 26 mmol/L (22-29) 02/09/22 19:50 Anion Gap 16.5 (5-19) 02/09/22 19:50 BUN 21 mg/dL (6-20) H 02/09/22 19:50 Creatinine 0.7 mg/dL (0.5-0.9) 02/09/22 19:50 GFR Calculation 94.2 mL/min (90-130) 02/09/22 19:50 Glucose 285 mg/dL (65-115) H 02/09/22 19:50 POC Glucose 267 mg/dL (70-110) H 02/09/22 19:58 Calculated Osmolality 295 mOsm/kg (285-295) 02/09/22 19:50 Calcium 8.7 mg/dL (8.5-10.5) 02/09/22 19:50 Total Bilirubin 0.2 mg/dL (0.15-1.2) 02/09/22 19:50 AST 12 U/L (0-32) 02/09/22 19:50 ALT 19 U/L (0-33) 02/09/22 19:50 Alkaline Phosphatase 77 IU/L (35-105) 02/09/22 19:50 Total Protein 7.3 g/dL (6.6-8.7) 02/09/22 19:50 Albumin 4.4 g/dL (3.5-5.2) 02/09/22 19:50 Globulin 2.9 g/dL (1.3-4.6) 02/09/22 19:50 TSH 0.51 uIU/mL (0.27-4.20) 02/09/22 19:50 HCG, Qual Negative (Negative) 02/09/22 21:57 Urine Color Yellow (Yellow) 02/09/22 21:57 Urine Appearance Sl cloudy (CLEAR) A 02/09/22 21:57 Urine pH 5 (5-7) 02/09/22 21:57 Ur Specific [place] 1.015 (1.005-1.030) 02/09/22 21:57 Urine Protein Trace (Negative) 02/09/22 21:57 Urine Glucose (UA) 4+ (Normal) H 02/09/22 21:57 Urine Ketones Negative (Negative) 02/09/22 21:57 Urine Blood 3+ (Negative) H 02/09/22 21:57 Urine Nitrate Negative (Negative) 02/09/22 21:57 Urine Bilirubin Neg (Negative) 02/09/22 21:57 Urine Urobilinogen Norm mg/dL (Negative) 02/09/22 21:57 Ur Leukocyte Esterase Negative (Negative) 02/09/22 21:57 Urine RBC >100 /hpf (0-2) H 02/09/22 21:57 Urine WBC 0-4 /hpf (0-5) H 02/09/22 21:57 Ur Squamous Epith Cells 5-10 /hpf (0-5) H 02/09/22 21:57 Amorphous Sediment Not Reportable 02/09/22 21:57 Urine Bacteria 2+ /hpf (NONE) H 02/09/22 21:57 Salicylates < 0.3 mg/dL (3-10) L 02/09/22 19:50 Urine Opiates Screen Negative ng/mL (Negative) 02/09/22 21:57 Acetaminophen < 5.0 ug/mL (10-30) L 02/09/22 19:50 Ur Barbiturates Screen Negative ng/mL (Negative) 02/09/22 21:57 Ur Phencyclidine Scrn Negative ng/mL (Negative) 02/09/22 21:57 Ur Amphetamines Screen Negative ng/mL (Negative) 02/09/22 21:57 U Benzodiazepines Scrn Positive ng/mL (Negative) H 02/09/22 21:57 Urine Cocaine Screen Negative ng/mL (Negative) 02/09/22 21:57 U Marijuana (THC) Screen Negative ng/mL (Negative) 02/09/22 21:57 Ethyl Alcohol < 10 mg/dL (0-10) 02/09/22 19:50 Discharge Plan Discharge Patient Disposition: Home Clinical Impression: Altered mental status, Pain, Muscle spasm Condition: Stable Prescriptions: No Action lisinopril 10 mg Tablet 10 mg PO DAILY 0RF metformin 500 mg Tablet 1,000 mg PO BID 0RF atorvastatin 20 mg Tablet 20 mg PO BEDTIME 0RF ondansetron HCl [Zofran] 8 mg Tablet 8 mg PO Q8H PRN (Reason: Nausea) 0RF hydroxyzine pamoate 50 mg Capsule 50 mg PO TID PRN (Reason: Anxiety) 0RF mirtazapine 15 mg Tablet 15 mg PO BEDTIME 0RF bupropion HCl 150 mg Tablet Extended Release 24 Hr 150 mg PO DAILY 0RF Januvia 100 mg Tablet 100 mg PO DAILY 0RF melatonin 5 mg Tablet 10 mg PO BEDTIME 0RF Jardiance 25 mg Tablet 25 mg PO DAILY 0RF Lantus Solostar U-100 Insulin 100 unit/mL (3 mL) insulin pen 20 unit SUBCUT QAM Qty: 15 0RF aspirin 81 mg tablet,delayed release (DR/EC) 81 mg PO DAILY Qty: 30 0RF Discharge Orders: Discharge ED (Routine); Ordered 02/10/22 Ordered By: Yanick Lawrence Discharge Diet: Usual diet Discharge Activity: Resume usual activity Patient Instructions: Abdominal Pain (ED), Altered Mental Status (ED), Back Pain (ED) Activity Restrictions/Additional Instructions: Thank you for visiting the emergency department. You were seen and evaluated for pain of uncertain cause and changes mental status. We are pleased that you are improved. Please follow-up with your primary care provider. Return to the emergency department for any new symptoms that you are concerned about and feel needs emergency department evaluation. Coding Level of Care Code ED Counter Hand for Chg Fwd Exam Comprehensive Documented by User: Yanick Lawrence DO 02/10/22 00:32 HPI - Altered Mental Status General: Chief Complaint: Altered Mental Status Stated Complaint: AMS Time Seen by Provider: 02/09/22 19:47 PFSH ED PFSH: Medical History (Updated 02/13/22 @ 11:58 by Troy Sibley MD) Amphetamine abuse Bacteremia Insulin dependent type 2 diabetes mellitus Legally blind Surgical History History of incision and drainage Family History Other CAD (coronary artery disease) Diabetes Hyperlipidemia Stroke Social History Smoking and tobacco status: former smoker Alcohol intake: unknown Desire information about substance/drug rehabilitation?: Yes Counseling given: Yes Caregiver/support person: No Lives independently: Yes Household members: other Housing: Other [facility]: [facility] Vital Signs: Vital signs: Vital Signs Temperature 97.7 F 02/09/22 19:47 Pulse Rate 79 02/10/22 00:36 Respiratory Rate 18 02/10/22 02:20 Blood Pressure 102/74 02/10/22 02:20 Pulse Oximetry 96 02/10/22 02:20 MDM - Altered Mental Status Medical Decision Making 36-year-old female checked out to me at shift change by the previous physician. She complains of ill localized pain that comes in waves. Some mild mental status change. No leukocytosis. Hemoglobin 11.4. BUN is 21, sugars 285. Her bicarbonate level is 26. CT of the head was negative. CT of the chest abdomen pelvis show only constipation. Urinalysis reveals hematuria, but the patient is on her period. Urine drug screen is negative, save benzodiazepines, which the patient got in the ER prior to giving a urine sample. We will see if she can ambulate. If so, and can hold down fluids, she will be discharged. Patient improved. Passed oral fluid challenge as well as ambulation challenge. She will be discharged. Lab Data : 02/09/22 19:50 02/09/22 19:[address] 02/09/22 19:52 IMPRESSION: No acute intracranial abnormality. Chest/Abdomen/Pelvis CT 02/09/22 22:30 IMPRESSION: No acute findings. IMPRESSION: Constipation. Laboratory Results WBC 8.6 10^3/uL (4.0-10.0) 02/09/22 19:50 RBC 4.36 10^6/uL (4.1-5.3) 02/09/22 19:50 Hgb 11.4 g/dL (11.5-15.3) L 02/09/22 19:50 Hct 36.2 % (37.0-47.0) L 02/09/22 19:50 MCV 83.0 fl (81-99) 02/09/22 19:50 MCH 26.1 pg (28.0-34.0) L 02/09/22 19:50 MCHC 31.5 g/dL (30.0-36.0) 02/09/22 19:50 RDW 15.7 % (12.1-15.1) H 02/09/22 19:50 Plt Count 468 10^3/cmm (130-400) H 02/09/22 19:50 MPV 8.6 fL (7.4-10.4) 02/09/22 19:50 Neut % (Auto) 69.5 % 02/09/22 19:50 Lymph % (Auto) 23.9 % 02/09/22 19:50 Leon % (Auto) 4.4 % 02/09/22 19:50 Eos % (Auto) 1.4 % 02/09/22 19:50 Baso % (Auto) 0.6 % 02/09/22 19:50 Neut # (Auto) 5.99 10^3/uL (1.8-7.7) 02/09/22 19:50 Lymph # (Auto) 2.1 10^3/uL (0.8-4.8) 02/09/22 19:50 Leon # (Auto) 0.4 10^3/uL (0.2-0.9) 02/09/22 19:50 Eos # (Auto) 0.1 10^3/uL (0.0-0.8) 02/09/22 19:50 Baso # (Auto) 0.1 10^3/uL (0.0-0.1) 02/09/22 19:50 Nucleated RBC % (auto) 0 % 02/09/22 19:50 Nucleated RBCs # 0.0 /100WBC 02/09/22 19:50 Sodium 136 mmol/L (136-145) 02/09/22 19:50 Potassium 4.5 mmol/L (3.5-5.1) 02/09/22 19:50 Chloride 98 mmol/L (98-107) 02/09/22 19:50 Carbon Dioxide 26 mmol/L (22-29) 02/09/22 19:50 Anion Gap 16.5 (5-19) 02/09/22 19:50 BUN 21 mg/dL (6-20) H 02/09/22 19:50 Creatinine 0.7 mg/dL (0.5-0.9) 02/09/22 19:50 GFR Calculation 94.2 mL/min (90-130) 02/09/22 19:50 Glucose 285 mg/dL (65-115) H 02/09/22 19:50 POC Glucose 267 mg/dL (70-110) H 02/09/22 19:58 Calculated Osmolality 295 mOsm/kg (285-295) 02/09/22 19:50 Calcium 8.7 mg/dL (8.5-10.5) 02/09/22 19:50 Total Bilirubin 0.2 mg/dL (0.15-1.2) 02/09/22 19:50 AST 12 U/L (0-32) 02/09/22 19:50 ALT 19 U/L (0-33) 02/09/22 19:50 Alkaline Phosphatase 77 IU/L (35-105) 02/09/22 19:50 Total Protein 7.3 g/dL (6.6-8.7) 02/09/22 19:50 Albumin 4.4 g/dL (3.5-5.2) 02/09/22 19:50 Globulin 2.9 g/dL (1.3-4.6) 02/09/22 19:50 TSH 0.51 uIU/mL (0.27-4.20) 02/09/22 19:50 HCG, Qual Negative (Negative) 02/09/22 21:57 Urine Color Yellow (Yellow) 02/09/22 21:57 Urine Appearance Sl cloudy (CLEAR) A 02/09/22 21:57 Urine pH 5 (5-7) 02/09/22 21:57 Ur Specific [place] 1.015 (1.005-1.030) 02/09/22 21:57 Urine Protein Trace (Negative) 02/09/22 21:57 Urine Glucose (UA) 4+ (Normal) H 02/09/22 21:57 Urine Ketones Negative (Negative) 02/09/22 21:57 Urine Blood 3+ (Negative) H 02/09/22 21:57 Urine Nitrate Negative (Negative) 02/09/22 21:57 Urine Bilirubin Neg (Negative) 02/09/22 21:57 Urine Urobilinogen Norm mg/dL (Negative) 02/09/22 21:57 Ur Leukocyte Esterase Negative (Negative) 02/09/22 21:57 Urine RBC >100 /hpf (0-2) H 02/09/22 21:57 Urine WBC 0-4 /hpf (0-5) H 02/09/22 21:57 Ur Squamous Epith Cells 5-10 /hpf (0-5) H 02/09/22 21:57 Amorphous Sediment Not Reportable 02/09/22 21:57 Urine Bacteria 2+ /hpf (NONE) H 02/09/22 21:57 Salicylates < 0.3 mg/dL (3-10) L 02/09/22 19:50 Urine Opiates Screen Negative ng/mL (Negative) 02/09/22 21:57 Acetaminophen < 5.0 ug/mL (10-30) L 02/09/22 19:50 Ur Barbiturates Screen Negative ng/mL (Negative) 02/09/22 21:57 Ur Phencyclidine Scrn Negative ng/mL (Negative) 02/09/22 21:57 Ur Amphetamines Screen Negative ng/mL (Negative) 02/09/22 21:57 U Benzodiazepines Scrn Positive ng/mL (Negative) H 02/09/22 21:57 Urine Cocaine Screen Negative ng/mL (Negative) 02/09/22 21:57 U Marijuana (THC) Screen Negative ng/mL (Negative) 02/09/22 21:57 Ethyl Alcohol < 10 mg/dL (0-10) 02/09/22 19:50 Discharge Plan Discharge Patient Disposition: Home Clinical Impression: Altered mental status, Pain, Muscle spasm Condition: Stable Prescriptions: No Action lisinopril 10 mg Tablet 10 mg PO DAILY 0RF metformin 500 mg Tablet 1,000 mg PO BID 0RF atorvastatin 20 mg Tablet 20 mg PO BEDTIME 0RF ondansetron HCl [Zofran] 8 mg Tablet 8 mg PO Q8H PRN (Reason: Nausea) 0RF hydroxyzine pamoate 50 mg Capsule 50 mg PO TID PRN (Reason: Anxiety) 0RF mirtazapine 15 mg Tablet 15 mg PO BEDTIME 0RF bupropion HCl 150 mg Tablet Extended Release 24 Hr 150 mg PO DAILY 0RF Januvia 100 mg Tablet 100 mg PO DAILY 0RF melatonin 5 mg Tablet 10 mg PO BEDTIME 0RF Jardiance 25 mg Tablet 25 mg PO DAILY 0RF Lantus Solostar U-100 Insulin 100 unit/mL (3 mL) insulin pen 20 unit SUBCUT QAM Qty: 15 0RF aspirin 81 mg tablet,delayed release (DR/EC) 81 mg PO DAILY Qty: 30 0RF Discharge Orders: Discharge ED (Routine); Ordered 02/10/22 Ordered By: Yanick Lawrence Discharge Diet: Usual diet Discharge Activity: Resume usual activity Patient Instructions: Abdominal Pain (ED), Altered Mental Status (ED), Back Pain (ED) Activity Restrictions/Additional Instructions: Thank you for visiting the emergency department. You were seen and evaluated for pain of uncertain cause and changes mental status. We are pleased that you are improved. Please follow-up with your primary care provider. Return to the emergency department for any new symptoms that you are concerned about and feel needs emergency department evaluation. Coding Level of Care Code ED Counter Hand for Mylene Fwcheryl Exam Comprehensive
--- NOTE | 2022-02-09 19:52 | CTR_ITS ---
PROCEDURE INFORMATION: Exam: CT Head Without Contrast Exam date and time: 02/09/2022 7:52 PM Age: 36 years old Clinical indication: Altered mental status/memory loss; Confusion or disorientation; Patient HX: Sudden onset AMS TECHNIQUE: Imaging protocol: Computed tomography of the head without contrast. Radiation optimization: All CT scans at this facility use at least one of these dose optimization techniques: automated exposure control; mA and/or kV adjustment per patient size (includes targeted exams where dose is matched to clinical indication); or iterative reconstruction. COMPARISON: 1. CT head wo con* [id number] 2022-02-06 15:[address] head wo con* [id number] 2022-02-06 09:54 RADIATION DOSE METRICS: Total DLP (mGy-cm): 1648.4 FINDINGS: Brain: Normal. No hemorrhage. Unremarkable white matter. No mass effect. Cerebral ventricles: No ventriculomegaly. Paranasal sinuses: Visualized sinuses are unremarkable. No fluid levels. Mastoid air cells: Visualized mastoid air cells are well aerated. Bones/joints: Unremarkable. No acute fracture. Soft tissues: Unremarkable. CT/CT head wo con* [id number] IMPRESSION: No acute intracranial abnormality.
[2022-02-09 19:57] LABS: Basophils # 0.1 10^3/uL (0.0-0.1); Basophils % 0.6 %; Eosinophils # 0.1 10^3/uL (0.0-0.8); Eosinophils % 1.4 %; Hematocrit 36.2 % (37.0-47.0); Hemoglobin 11.4 g/dL (11.5-15.3); Lymphocytes # 2.1 10^3/uL (0.8-4.8); Lymphocytes % 23.9 %; Mean Corpuscular HGB Conc 31.5 g/dL (30.0-36.0); Mean Corpuscular Hemoglobin 26.1 pg (28.0-34.0); Mean Platelet Volume 8.6 fL (7.4-10.4); Monocytes # 0.4 10^3/uL (0.2-0.9); Monocytes % 4.4 %; Neutrophils # 5.99 10^3/uL (1.8-7.7); Neutrophils % 69.5 %; Nucleated Red Blood Cells % 0 %; Platelet Count 468 10^3/cmm (130-400); Red Blood Count 4.36 10^6/uL (4.1-5.3); Red Cell Distribution Width 15.7 % (12.1-15.1); White Blood Count 8.6 10^3/uL (4.0-10.0)
[2022-02-09 20:00] LABS: Glucose Point of Care 267 mg/dL (70-110)
[2022-02-09] MEDS: LORazepam 2 mg/mL INJ 1 mL 1 MG IVP (20:11)
[2022-02-09 20:28] LABS: Acetaminophen < 5.0 ug/mL (10-30); Alcohol Level < 10 mg/dL (0-10); Salicylate < 0.3 mg/dL (3-10)
[2022-02-09 20:35] LABS: Alanine Aminotransferase 19 U/L (0-33); Albumin Level 4.4 g/dL (3.5-5.2); Alkaline Phosphatase 77 IU/L (35-105); Anion Gap 16.5 (5-19); Aspartate Amino Transferase 12 U/L (0-32); Blood Urea Nitrogen 21 mg/dL (6-20); Calcium 8.7 mg/dL (8.5-10.5); Carbon Dioxide 26 mmol/L (22-29); Chloride 98 mmol/L (98-107); Globulin 2.9 g/dL (1.3-4.6); Glomerular Filtration Rate 94.2 mL/min (90-130); Glucose 285 mg/dL (65-115); Osmolality Calculated 295 mOsm/kg (285-295); Potassium 4.5 mmol/L (3.5-5.1); Sodium 136 mmol/L (136-145); Thyroid Stimulating Hormone 0.51 uIU/mL (0.27-4.20); Total Bilirubin 0.2 mg/dL (0.15-1.2); Total Protein 7.3 g/dL (6.6-8.7)
[2022-02-09 21:29] VITALS: BP 111/67; PULSE 95; RESP 12; O2SAT 100
[2022-02-09 22:09] LABS: HCG Qualitative Urine. Negative (Negative)
[2022-02-09 22:19] LABS: Amphetamines Screen Urine Negative (Negative); Barbiturates Screen Urine Negative (Negative); Benzodiazepines Screen Urine Positive (Negative); Cocaine Screen Urine Negative (Negative); Opiate Screen Urine Negative (Negative); PCP Screen Urine Negative (Negative); THC Screen Urine Negative (Negative)
[2022-02-09 22:27] LABS: Urine Color Yellow (Yellow)
[2022-02-09 22:28] LABS: Add Urine Microscopic? YES; Bilirubin Urine Neg (Negative); Blood Urine 3+ (Negative); Glucose Urine UA 4+ (Normal); Ketones Urine Negative (Negative); Leukocyte Esterase Urine Negative (Negative); Nitrate Urine Negative (Negative); Protein Urine Trace (Negative); Specific Gravity, Urine 1.015 (1.005-1.030); Urobilinogen Urine Norm (Negative); pH Urine 5 (5-7)
[2022-02-09 22:30] LABS: Add Urine Culture? Yes; Bacteria Urine 2+ /hpf; RBC Urine >100 /hpf (0-2); WBC Urine 0-4 /hpf (0-5)
--- NOTE | 2022-02-09 22:30 | CTR_ITS ---
PROCEDURE INFORMATION: Exam: CT Chest With Contrast; Diagnostic Exam date and time: 02/09/2022 10:30 PM Age: 36 years old Clinical indication: Abdominal pain; Sternal or substernal pain; Additional info: Post tpa 02/05, back/chest/flank/abd pain. Heavy vaginal bleeding and whole body muscle spasms TECHNIQUE: Imaging protocol: Diagnostic computed tomography of the chest with contrast. Radiation optimization: All CT scans at this facility use at least one of these dose optimization techniques: automated exposure control; mA and/or kV adjustment per patient size (includes targeted exams where dose is matched to clinical indication); or iterative reconstruction. Contrast material: OMNI 300; Contrast volume: 95 ml; Contrast route: INTRAVENOUS (IV); COMPARISON: CT angio headneck* [id number] 2022-02-05 20:33 RADIATION DOSE METRICS: Total DLP (mGy-cm): 1180.99 FINDINGS: Lungs: Unremarkable. No consolidation. No masses. Pleural spaces: Unremarkable. No pneumothorax. No pleural effusion. Heart: Unremarkable. No cardiomegaly. No pericardial effusion. Aorta: Unremarkable. No aortic aneurysm. Lymph nodes: Unremarkable. No enlarged lymph nodes. Diaphragm: Small gastroesophageal sliding type hiatal hernia. Bones/joints: Unremarkable. No acute fracture. Soft tissues: Unremarkable. PROCEDURE INFORMATION: Exam: CT Abdomen And Pelvis With Contrast Exam date and time: 02/09/2022 10:30 PM Age: 36 years old Clinical indication: Abdominal pain; Sternal or substernal pain; Additional info: Post tpa 02/05, back/chest/flank/abd pain. Heavy vaginal bleeding and whole body muscle spasms TECHNIQUE: Imaging protocol: Computed tomography of the abdomen and pelvis with contrast. Radiation optimization: All CT scans at this facility use at least one of these dose optimization techniques: automated exposure control; mA and/or kV adjustment per patient size (includes targeted exams where dose is matched to clinical indication); or iterative reconstruction. Contrast material: OMNI 300; Contrast volume: 95 ml; Contrast route: INTRAVENOUS (IV); COMPARISON: CT angio headneck* [id number] 2022-02-05 20:33 RADIATION DOSE METRICS: Total DLP (mGy-cm): 1180.99 FINDINGS: Liver: Normal. No mass. Gallbladder and bile ducts: Normal. No calcified stones. No ductal dilation. Pancreas: Normal. No ductal dilation. Spleen: Normal. No splenomegaly. Adrenal glands: Normal. No mass. Kidneys and ureters: Punctate right renal calcification. Stomach and bowel: Constipation. Appendix: No evidence of appendicitis. Intraperitoneal space: Unremarkable. No free air. No significant fluid collection. Vasculature: Mild to moderate aortic and iliac artery atherosclerotic calcification. Lymph nodes: Unremarkable. No enlarged lymph nodes. Urinary bladder: Unremarkable as visualized. Reproductive: Unremarkable as visualized. Bones/joints: Sacroiliac arthrosis. Soft tissues: Unremarkable. CT/CT chest abd pel w con* IMPRESSION: No acute findings. IMPRESSION: Constipation.
[2022-02-09 22:54] VITALS: BP 100/67; PULSE 87; O2SAT 96
[2022-02-09] MEDS: iohexol 300 mg/mL 100 mL Btl IV (23:03)
[2022-02-10 00:36] VITALS: BP 97/58; PULSE 79; RESP 11; O2SAT 96
[2022-02-10 02:20] VITALS: BP 102/74; RESP 18; O2SAT 96
== END 2022-02-10 02:22 | disposition home or self-care (01) ==
PROVIDERS: Emergency Medicine; Emergency Provider Emergency Medicine
DX: R41.82 Altered mental status, unspecified (principal); M62.838 Other muscle spasm; R52 Pain, unspecified; E11.9 Type 2 diabetes mellitus without complications; Z87.891 Personal history of nicotine dependence; Z79.84 Long term (current) use of oral hypoglycemic drugs; Z79.82 Long term (current) use of aspirin; Z79.4 Long term (current) use of insulin
CPT/HCPCS: 36416; 70450; 71260; 74177; 80053; 80306; 80307; 81001; 81025; 82962; 84443; 85025; 87077; 87086; 87186; 96374; 99284; J2060; Q9967

== ENCOUNTER 2022-02-12 00:04 | Inpatient (IN) | payer MEDICAID, SELFPAY ==
[2022-02-12 00:05] VITALS: BP 113/82; PULSE 120; RESP 18; TEMP 36.2; O2SAT 100; BMI 25.4
--- NOTE | 2022-02-12 00:08 | ED.C_ITS ---
HPI - Psych General: Chief Complaint: Psychiatric Symptoms Stated Complaint: SI Time Seen by Provider: 02/12/22 00:08 Limitations: altered mental status History of Present Illness: Ms. Huynh is a 36-year-old lady who presents emergency department accompanied by law enforcement with altered mental status. The patient is yelling and accusing staff in the room of being various people who they are not. She is not really directable verbally and does not provide meaningful history. She appears psychotic. She is attempting to hit staff and presents for a threat to herself. Associated symptoms: Reports delusions Review of Systems General: Reports: ROS unobtainable due to mental status [facility] ED PFS: Medical History (Updated 02/13/22 @ 11:58 by Troy Sibley MD) Amphetamine abuse Bacteremia Insulin dependent type 2 diabetes mellitus Legally blind Surgical History History of incision and drainage Family History Other CAD (coronary artery disease) Diabetes Hyperlipidemia Stroke Social History Smoking and tobacco status: former smoker Alcohol intake: unknown Desire information about substance/drug rehabilitation?: Yes Counseling given: Yes Caregiver/support person: No Lives independently: Yes Household members: other Housing: Other Details: [facility] Physical Exam Const: COMMON NORMALS: alert GENERAL APPEARANCE: well developed and combative; not cooperative HENMT: COMMON NORMALS: normocephalic and atraumatic HEAD & SCALP: normocephalic and atraumatic Eye: COMMON NORMALS: conjunctivae normal CONJUNCTIVA: Yes conjunctivae normal SCLERA: sclerae normal Neck/C-Spine: COMMON NORMALS: supple GENERAL: Yes trachea midline Resp: COMMON NORMALS: normal respiratory effort EFFORT & INSPECTION: Yes able to speak in complete sentences Cardio: COMMON NORMALS: regular rate and regular rhythm RATE: regular rate RHYTHM: regular rhythm GI: COMMON NORMALS: Soft to palpation PALPATION: Yes Soft to palpation and No Tenderness to palpation present (GI) PERCUSSION: normal to percussion Extremity: GENERAL: Yes normal exam except as noted and No edema Neuro: COMMON NORMALS: moves all extremities SENSORIUM/ORIENTATION: Yes alert and No Orientation impaired Psych: APPEARANCE: Yes unkempt ATTITUDE: Yes agitated, Yes aggressive and Yes hostile ACTIVITY/MOTOR BEHAVIOR: Yes hyperactivity and Yes disorganized behavior SPEECH: Yes rapid THOUGHT CONTENT: Yes delusions INSIGHT: Poor insight present (Psych) JUDGEMENT: Poor judgement present (Psych) Course ED course: - Patient was seen and evaluated by me at bedside -Vital signs obtained. Given patient's degree of combativeness she was placed in restraints. - Chemical restraints ordered. - Labs notable for no acute finding to explain psychosis. IV fluids administered. Though the patient has decreased bicarb and increased anion gap in the context of known diabetes the Serum ketones are negative and I believe that the metabolic changes are more consistent with dehydration/agitation. - Though the patient has a complex recent past medical history there are no focal findings on her neurologic exam and I do not believe that repeat imaging is required at this time. - Upon serial reexamination after treatment the patient was improved. She was assessed for hard restraints and appropriate restraint removal measures as per protocol. - Psychiatry service contacted and agreed to admit the patient. - Based on ED evaluation to this point there is no obvious condition that would preclude the patient from inpatient management of psychiatric concerns. Note: Click bubbles or prepopulated ag in note writing are used for assistance with data collection and billing and are inherently more limited than narrative and other text portions of this note. Please use narrative for additional clinical history and defer to narrative/free test for any case of contradictory information. If information appears in only free text or click bubble it shou ld be considered present or absent as reported. Please contact note technical writer for clarifications of clinical information or contradictory information. MDM is a brief summary, contradictory or erroneous seeming information should be clarified and full note should be reviewed. Vital Signs: Vital signs: Vital Signs Temperature 97.9 F 02/15/22 20:25 Pulse Rate 95 02/15/22 20:25 Respiratory Rate 17 02/15/22 20:25 Blood Pressure 96/71 02/15/22 20:25 Pulse Oximetry 100 02/15/22 20:25 MDM - Psych Medical Decision Making 36-year-old lady with complex past medical presented with acute psychosis. Treated with chemical restraints and initially hard restraints which were already able to be removed. IV fluids administered for likely dehydration. Admitted for further definitive management of psychiatric symptoms. Medical Records I reviewed the patient's medical records. Lab Data I reviewed the patient's lab results. : 02/12/22 00:10 02/12/22 00:10 Laboratory Results WBC 10.1 10^3/uL (4.0-10.0) H 02/12/22 00:10 RBC 4.49 10^6/uL (4.1-5.3) 02/12/22 00:10 Hgb 11.6 g/dL (11.5-15.3) 02/12/22 00:10 Hct 37.4 % (37.0-47.0) 02/12/22 00:10 MCV 83.3 fl (81-99) 02/12/22 00:10 MCH 25.8 pg (28.0-34.0) L 02/12/22 00:10 MCHC 31.0 g/dL (30.0-36.0) 02/12/22 00:10 RDW 15.5 % (12.1-15.1) H 02/12/22 00:10 Plt Count 498 10^3/cmm (130-400) H 02/12/22 00:10 MPV 9.2 fL (7.4-10.4) 02/12/22 00:10 Neut % (Auto) 65.9 % 02/12/22 00:10 Lymph % (Auto) 28.5 % 02/12/22 00:10 Cross % (Auto) 4.2 % 02/12/22 00:10 Eos % (Auto) 0.8 % 02/12/22 00:10 Baso % (Auto) 0.4 % 02/12/22 00:10 Neut # (Auto) 6.65 10^3/uL (1.8-7.7) 02/12/22 00:10 Lymph # (Auto) 2.9 10^3/uL (0.8-4.8) 02/12/22 00:10 Cross # (Auto) 0.4 10^3/uL (0.2-0.9) 02/12/22 00:10 Eos # (Auto) 0.1 10^3/uL (0.0-0.8) 02/12/22 00:10 Baso # (Auto) 0.0 10^3/uL (0.0-0.1) 02/12/22 00:10 Nucleated RBC % (auto) 0 % 02/12/22 00:10 Nucleated RBCs # 0.0 /100WBC 02/12/22 00:10 Sodium 135 mmol/L (136-145) L 02/12/22 00:10 Potassium 4.5 mmol/L (3.5-5.1) 02/12/22 00:10 Chloride 98 mmol/L (98-107) 02/12/22 00:10 Carbon Dioxide 22 mmol/L (22-29) 02/12/22 00:10 Anion Gap 19.5 (5-19) H 02/12/22 00:10 BUN 25 mg/dL (6-20) H 02/12/22 00:10 Creatinine 0.6 mg/dL (0.5-0.9) 02/12/22 00:10 GFR Calculation 112.5 mL/min (90-130) 02/12/22 00:10 Glucose 205 mg/dL (65-115) H 02/12/22 00:10 Calculated Osmolality 290 mOsm/kg (285-295) 02/12/22 00:10 Calcium 10.5 mg/dL (8.5-10.5) 02/12/22 00:10 Total Bilirubin 0.3 mg/dL (0.15-1.2) 02/12/22 00:10 AST 12 U/L (0-32) 02/12/22 00:10 ALT 20 U/L (0-33) 02/12/22 00:10 Alkaline Phosphatase 85 IU/L (35-105) 02/12/22 00:10 Total Protein 8.1 g/dL (6.6-8.7) 02/12/22 00:10 Albumin 4.7 g/dL (3.5-5.2) 02/12/22 00:10 Globulin 3.4 g/dL (1.3-4.6) 02/12/22 00:10 TSH 1.10 uIU/mL (0.27-4.20) 02/12/22 00:10 HCG, Qual Negative (Negative) 02/12/22 02:12 Salicylates < 0.3 mg/dL (3-10) L 02/12/22 00:10 Urine Opiates Screen Negative ng/mL (Negative) 02/12/22 02:12 Acetaminophen < 5.0 ug/mL (10-30) L 02/12/22 00:10 Ur Barbiturates Screen Negative ng/mL (Negative) 02/12/22 02:12 Ur Phencyclidine Scrn Negative ng/mL (Negative) 02/12/22 02:12 Ur Amphetamines Screen Negative ng/mL (Negative) 02/12/22 02:12 U Benzodiazepines Scrn Negative ng/mL (Negative) 02/12/22 02:12 Urine Cocaine Screen Negative ng/mL (Negative) 02/12/22 02:12 U Marijuana (THC) Screen Negative ng/mL (Negative) 02/12/22 02:12 Ethyl Alcohol < 10 mg/dL (0-10) 02/12/22 00:10 Serum Ketones Negative (Negative) 02/12/22 00:10 Discharge Plan Discharge Patient Disposition: Admitted As Inpatient Admit Provider: Troy Sibley Clinical Impression: Acute psychosis, Dehydration Condition: Stable Coding Level of Care Code ED Diabetes Specialist for Bernadineg Fwd Exam Comprehensive
[2022-02-12] MEDS: midazolam 1 mg/mL INJ 2 mL 5 MG IM (00:13)
[2022-02-12] MEDS: haloperidol inj 5 mg/mL INJ 1 mL IM (00:13)
--- NOTE | 2022-02-12 00:25 | PC.NURSE ---
Patient received via EMS stretcher with police escort. patient talking nonsensical expressions and being rude to staff, began yelling and MD at bedside, restraints placed and patient medicated. speech clear, respirations even equal and unlabored. patient spitting at staff members.
[2022-02-12 00:29] LABS: Basophils % 0.4 %; Eosinophils # 0.1 10^3/uL (0.0-0.8); Eosinophils % 0.8 %; Hematocrit 37.4 % (37.0-47.0); Hemoglobin 11.6 g/dL (11.5-15.3); Lymphocytes # 2.9 10^3/uL (0.8-4.8); Lymphocytes % 28.5 %; Mean Corpuscular Hemoglobin 25.8 pg (28.0-34.0); Mean Corpuscular Volume 83.3 fl (81-99); Mean Platelet Volume 9.2 fL (7.4-10.4); Monocytes # 0.4 10^3/uL (0.2-0.9); Monocytes % 4.2 %; Neutrophils # 6.65 10^3/uL (1.8-7.7); Neutrophils % 65.9 %; Nucleated Red Blood Cells % 0 %; Platelet Count 498 10^3/cmm (130-400); Red Blood Count 4.49 10^6/uL (4.1-5.3); Red Cell Distribution Width 15.5 % (12.1-15.1); White Blood Count 10.1 10^3/uL (4.0-10.0)
[2022-02-12 00:57] LABS: Acetaminophen < 5.0 ug/mL (10-30); Alanine Aminotransferase 20 U/L (0-33); Albumin Level 4.7 g/dL (3.5-5.2); Alcohol Level < 10 mg/dL (0-10); Alkaline Phosphatase 85 IU/L (35-105); Anion Gap 19.5 (5-19); Aspartate Amino Transferase 12 U/L (0-32); Blood Urea Nitrogen 25 mg/dL (6-20); Calcium 10.5 mg/dL (8.5-10.5); Carbon Dioxide 22 mmol/L (22-29); Chloride 98 mmol/L (98-107); Globulin 3.4 g/dL (1.3-4.6); Glomerular Filtration Rate 112.5 mL/min (90-130); Glucose 205 mg/dL (65-115); Osmolality Calculated 290 mOsm/kg (285-295); Potassium 4.5 mmol/L (3.5-5.1); Salicylate < 0.3 mg/dL (3-10); Sodium 135 mmol/L (136-145); Total Bilirubin 0.3 mg/dL (0.15-1.2); Total Protein 8.1 g/dL (6.6-8.7)
[2022-02-12] MEDS: sodium chloride 0.9% 1,000 ML 999 ML IV (02:15)
[2022-02-12 02:27] LABS: HCG Qualitative Urine. Negative (Negative)
[2022-02-12 02:33] LABS: Amphetamines Screen Urine Negative (Negative); Barbiturates Screen Urine Negative (Negative); Benzodiazepines Screen Urine Negative (Negative); Cocaine Screen Urine Negative (Negative); Opiate Screen Urine Negative (Negative); PCP Screen Urine Negative (Negative); THC Screen Urine Negative (Negative)
[2022-02-12 03:20] LABS: Ketone (Acetest) Serum Negative (Negative)
[2022-02-12 03:48] VITALS: BP 113/79; PULSE 94; RESP 16; TEMP 36.6; O2SAT 98
[2022-02-12 04:00] VITALS: BP 113/79; PULSE 94; RESP 16; TEMP 36.6
[2022-02-12 06:00] VITALS: BP 93/59; PULSE 96; RESP 16; TEMP 36.3; O2SAT 97
[2022-02-12 06:51] LABS: Glucose Point of Care 95 mg/dL (70-110)
--- NOTE | 2022-02-12 08:45 | PC.OT ---
OT EVALUATION ORDERS RECEIVED. PER NURSING, HOLD TODAY DUE TO SEDATION WHEN ARRIVED ON UNIT. WILL ATTEMPT AGAIN AT A LATER TIME.
[2022-02-12] MEDS: lisinopril 10 mg Tablet PO (11:14)
[2022-02-12] MEDS: buPROPion XL (24 HR) 150 mg Tablet PO (11:14)
[2022-02-12] MEDS: metformin 500 mg Tablet 1000 MG PO ×2 (11:14→17:54)
[2022-02-12] MEDS: aspirin 81 mg EC Tablet PO (11:14)
[2022-02-12 11:18] LABS: Glucose Point of Care 108 mg/dL (70-110)
--- NOTE | 2022-02-12 11:25 | NPU.GN ---
[facility] Unit Group Topic:Coping Mechanisms Activity General Mood of Group: Alexandra id not attend group. CSS tired to wake patient up for group and to discuss [facility] services with patient. Patient was out of it and would not wake up.
--- NOTE | 2022-02-12 12:47 | P.NPUHP_ITS ---
Providers/Chief Complaint Admitting Physician: Troy Sibley MD Chief Complaint: SI HPI NPU History of Present Illness Alexandra Huynh is a 36 year old female admitted to our emergency department with the following report: Ms. Huynh is a 36-year-old lady who presents emergency department accompanied by law enforcement with altered mental status.? The patient is ye lling and accusing staff in the room of being various people who they are not.? She is not really directable verbally and does not provide meaningful history.? She appears psychotic.? She is attempting to hit staff and presents for a threat to herself. Associated symptoms: Reports delusions Home medications: Prescriptions: No Action ? lisinopril 10 mg Tablet ?? 10 mg PO DAILY 0RF ? metformin 500 mg Tablet ?? 1,000 mg PO BID 0RF ? atorvastatin 20 mg Tablet ?? 20 mg PO BEDTIME 0RF ? ondansetron HCl [Zofran] 8 mg Tablet ?? 8 mg PO Q8H PRN (Reason: Nausea) 0RF ? hydroxyzine pamoate 50 mg Capsule ?? 50 mg PO TID PRN (Reason: Anxiety) 0RF ? mirtazapine 15 mg Tablet ?? 15 mg PO DAILY 0RF ? bupropion HCl 150 mg Tablet Extended Release 24 Hr ?? 150 mg PO QAM 0RF ? Januvia 100 mg Tablet ?? 100 mg PO DAILY 0RF ? melatonin 5 mg Tablet ?? 5 mg PO BEDTIME 0RF ? Jardiance 25 mg Tablet ?? 25 mg PO DAILY 0RF ? Lantus Solostar U-100 Insulin 100 unit/mL (3 mL) insulin pen ?? 20 unit SUBCUT QAM Qty: 15 0RF ? aspirin 81 mg tablet,delayed release (DR/EC) ?? 81 mg PO DAILY Qty: 30 0RF ? atorvastatin 80 mg tablet ?? 80 mg PO DAILY Qty: 30 0RF She was admitted to the neuropsychiatry unit for definitive treatment of her issues. She was found in bed and sleepy. She has been in bed since she has been here. I tried to wake her up a couple of hours ago but I could not. She would not sit up and talk with me. She was difficult to interview. Most of what she said I could not understand. She says that the people at [facility] like to her. They said that her last day was supposed to be February 19 but she was asking for an extension. She said that she was there and in bed when they called the police. She denies having any problematic behaviors. She said that the police treated her badly and hurt her when they tried to calm her down. She denies any recent auditory or visual hallucinations or paranoid ideas. She said that she has not been depressed or suicidal recently. She was depressed and suicidal and hospitalized about 2 years ago. She would not say how many times she has been hospitalized. She says that the antidepressants have never helped her. She denies doing any substances the last few days. The last time she used methamphetamine was before going into [facility]. Of interest, she was in the emergency room 1 week ago and could not move the left side of her body. Dr. Elaine did not think that she had an ischemic stroke. It was not specifically stated that it was psychogenic. Meds NPU Home Medications Medication Instructions Recorded Confirmed Last Taken Type atorvastatin 20 mg tablet 20 mg PO BEDTIME 02/05/22 02/12/22 02/04/22 History bupropion HCl 150 mg 24 hr tablet, 150 mg PO DAILY 02/05/22 02/12/22 02/05/22 History extended release empagliflozin 25 mg tablet 25 mg PO DAILY 02/05/22 02/12/22 02/05/22 History (Jardiance) hydroxyzine pamoate 50 mg capsule 50 mg PO TID PRN 02/05/22 02/12/22 02/05/22 History melatonin 5 mg tablet 10 mg PO BEDTIME 02/05/22 02/12/22 02/04/22 History metformin 500 mg tablet 1,000 mg PO BID 02/05/22 02/12/22 02/05/22 History mirtazapine 15 mg tablet 15 mg PO BEDTIME 02/05/22 02/12/22 02/04/22 History ondansetron HCl 8 mg tablet 8 mg PO Q8H PRN 02/05/22 02/12/22 02/03/22 History sitagliptin 100 mg tablet (Januvia) 100 mg PO DAILY 02/05/22 02/12/22 02/05/22 History aspirin 81 mg tablet,delayed 81 mg PO DAILY #30 tab 02/06/22 02/12/22 Unknown Rx release insulin glargine 100 unit/mL (3 20 unit (0.2 mL) SUBCUT QAM #15 ml 02/06/22 0 02/12/22 Unknown Rx mL) subcutaneous pen (Lantus Solostar U-100 Insulin) lisinopril 10 mg tablet 10 mg PO DAILY 02/06/22 02/12/22 Unknown History Allergies Allergy/AdvReac Type Severity Reaction Status Date / Time No Known Allergies Allergy Verified 02/06/22 16:36 PFSH NPU PFSH: Medical History (Updated 02/12/22 @ 13:01 by Troy Sibley MD) Amphetamine abuse Bacteremia Insulin dependent type 2 diabetes mellitus Legally blind Surgical History History of incision and drainage Family History Other CAD (coronary artery disease) Diabetes Hyperlipidemia Stroke Social History Smoking and tobacco status: former smoker Alcohol intake: unknown Desire information about substance/drug rehabilitation?: Yes Counseling given: Yes Caregiver/support person: No Lives independently: Yes Household members: other Housing: Other Details: [facility] Mental Status Exam MSE Comments: This is a 36-year old female who appears mildly overweight and in no acute distress. She is in bed and would not get up to talk with me. She is poorly groomed in hospital scrubs. psychomotor activity is decreased Speech is difficult to understand. She is sedated. I can only understand about half of what she says. She is not making much of an effort to be understood. When she does really want to be understood she can speak more clearly. Alert, I did not ask orientation questions Attention and concentration are diminished. Memory is intact Mood is not depressed . Affect is sedated. Thought process is logical and goal-directed. Thought content: Denies auditory and visual hallucinations. No delusions or paranoia are noted. No current suicidal ideation, and no homicidal ideation. Fund of knowledge is probably average Insight and judgment appear to be poor. Impulse control is poor. Vitals/I&O/Wt Last Vital Signs Temp 97.3 F L 02/12/22 06:00 Pulse 96 02/12/22 06:00 Resp 16 02/12/22 06:00 BP 93/59 02/12/22 06:00 Pulse Ox 97 02/12/22 06:00 Weight last 48 hrs Weight 61.235 kg Data NPU : 02/12/22 00:10 02/12/22 00:10 A&P Assessment and plan (1) Altered mental status: Status: Acute (2) Acute psychosis: Status: Acute (3) Personality disorder: Status: Acute (4) Amphetamine abuse: Status: Acute (5) Insulin dependent type 2 diabetes mellitus: Status: Acute (6) Legally blind: Status: Acute Plan This is a 36-year old female with methamphetamine abuse but no other mental health diagnoses who evidently became acutely psychotic and agitated yesterday when being released from [facility]. Plan: 1. Continue current medication. Only observe for psychotic symptoms for now. 2. Continue every 15 minute checks for safety. 3. Encourage individual, group and milieu therapies. 4. Encourage sober living treatment after discharge at the highest level of care to which she is willing to commit. 5. We will monitor for safety for herself in the community prior to discharge. Involuntary Hold Information 96 Hour Hold: 96 Hour Involuntary Admission: Yes 96 Hour Hold Ending Date: 02/18/22 96 Hour Hold Ending Time: 00:15 Attestations NPU Medical Necessity Statement*: Inpatient hospitalization is medically necessary and the clinically appropriate intervention at this time. We will initiate medications and make changes as indicated. She will be in the hospital for over 2 midnights. Likely length of stay 4-6 days Coding Level of Care Code Acute Machinist Apprentice for Mylene Arreguin Diagnoses Altered mental status R41.82 Acute psychosis F23 Personality disorder F60.9 Amphetamine abuse F15.10 Insulin dependent type 2 diabetes mellitus E11.9; Z79.4 Legally blind H54.8
[2022-02-12 14:00] VITALS: BP 80/55; PULSE 88; RESP 16; TEMP 36.9; O2SAT 95
[2022-02-12 16:56] LABS: Glucose Point of Care 103 mg/dL (70-110)
[2022-02-12] MEDS: insulin lispro 100 unit/1 mL SUBCUT (20:34)
[2022-02-12] MEDS: atorvastatin 40 mg Tablet 20 MG PO (20:35)
[2022-02-12] MEDS: mirtazapine 15 mg Tablet PO (20:35)
[2022-02-12] MEDS: NON-FORMULARY MEDICATION (Melatonin 5 mg Tablet) 10 EACH PO (20:36)
[2022-02-12 20:42] LABS: Glucose Point of Care 195 mg/dL (70-110)
[2022-02-12 21:02] VITALS: BP 95/65; PULSE 95; RESP 17; TEMP 36.4; O2SAT 100
[2022-02-13 06:00] VITALS: BP 100/69; PULSE 81; RESP 17; TEMP 36.6; O2SAT 98
[2022-02-13 07:05] LABS: Glucose Point of Care 103 mg/dL (70-110)
[2022-02-13] MEDS: buPROPion XL (24 HR) 150 mg Tablet PO (10:10)
[2022-02-13] MEDS: metformin 500 mg Tablet 1000 MG PO ×2 (10:10→17:23)
[2022-02-13] MEDS: lisinopril 10 mg Tablet PO (10:10)
[2022-02-13] MEDS: aspirin 81 mg EC Tablet PO (10:10)
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
[2022-02-13 11:54] LABS: Glucose Point of Care 159 mg/dL (70-110)
[2022-02-13] MEDS: insulin lispro 100 unit/1 mL SUBCUT ×3 (12:05→20:58)
[2022-02-13 13:49] VITALS: BP 133/67; PULSE 95; RESP 17; TEMP 36.6; O2SAT 97
[2022-02-13 16:27] LABS: Glucose Point of Care 144 mg/dL (70-110)
[2022-02-13] MEDS: atorvastatin 40 mg Tablet 20 MG PO (20:17)
[2022-02-13] MEDS: temazepam 15 mg Capsule 30 MG PO (20:18)
[2022-02-13] MEDS: mirtazapine 15 mg Tablet PO (20:19)
[2022-02-13 21:01] LABS: Glucose Point of Care 172 mg/dL (70-110)
[2022-02-13 21:27] VITALS: BP 129/75; PULSE 92; RESP 18; TEMP 36.6; O2SAT 97
[2022-02-14 06:00] VITALS: BP 123/70; PULSE 90; RESP 18; TEMP 36.5; O2SAT 97
[2022-02-14 06:16] LABS: Glucose Point of Care 187 mg/dL (70-110)
[2022-02-14] MEDS: insulin lispro 100 unit/1 mL SUBCUT ×3 (08:25→21:42)
[2022-02-14] MEDS: insulin glargine 100 units/1 mL 20 UNIT SUBCUT (08:26)
[2022-02-14] MEDS: aspirin 81 mg EC Tablet PO (08:27)
[2022-02-14] MEDS: metformin 500 mg Tablet 1000 MG PO ×2 (08:27→17:07)
[2022-02-14] MEDS: lisinopril 10 mg Tablet PO (08:27)
[2022-02-14] MEDS: buPROPion XL (24 HR) 150 mg Tablet PO (08:27)
--- NOTE | 2022-02-14 12:37 | W.PM.NPUPNS ---
Subjective NPU Subjective: She said that she slept better last night. She slept for about 3 and half hours and then got up but went back to bed and tossed and turned. She said that is much better than it had been. She wants to take something for anxiety. He agreed to add Lexapro to her Remeron. Mental Status Exam MSE Comments: This is a 36-year old female who appears mildly overweight and in no acute distress. She was up walking in the hallway after breakfast. She is fairly groomed in hospital scrubs. psychomotor activity is normal Speech is difficult to understand at times but better than yesterday I can understand most of what she says. There is no pressured speech, tangentiality or clanging associations Alert, oriented x3 Attention and concentration appear to be normal Memory is intact Mood is not depressed . Affect mildly dysphoric Thought process is logical and goal-directed. Thought content: Denies auditory and visual hallucinations. No delusions or paranoia are noted. No current suicidal ideation, and no homicidal ideation. Fund of knowledge is probably average Insight and judgment appear to be poor. Impulse control is poor. Cognition: Patient Appearance: Appropriate Level of Consciousness: Drowsy Patient Cognition Impaired: No Ability to Follow Directions: Poor Patient Orientation (long list): Person, Name, Age and Birthday Comprehension Ability: Severe Impairment Hallucination Type: None Delusion Description: Not Present Thought Process: Disorganized Affect: Affect Description: Appropriate and Calm Behavior: Patient Behavior: Appropriate and Cooperative Speech Pattern: Appropriate and Clear Vitals/I&O/Wt Last Vital Signs Temp 97.7 F 02/14/22 06:00 Pulse 90 02/14/22 06:00 Resp 18 02/14/22 06:00 BP 123/70 02/14/22 06:00 Pulse Ox 97 02/14/22 06:00 Data NPU : 02/12/22 00:10 02/12/22 00:10 A&P Assessment and plan (1) Altered mental status: Status: Acute (2) Acute psychosis: Status: Acute (3) Amphetamine abuse: Status: Acute (4) Insulin dependent type 2 diabetes mellitus: Status: Acute (5) Legally blind: Status: Acute (6) Borderline personality disorder: Status: Acute Plan This is a 36-year old female with methamphetamine abuse but no other mental health diagnoses who evidently became acutely psychotic and agitated yesterday when being released from [facility]. Plan: 1. Continue current medication. Add Restoril 30 mg at bedtime for sleep 2. Continue every 15 minute checks for safety. 3. Encourage individual, group and milieu therapies. 4. Encourage sober living treatment after discharge at the highest level of care to which she is willing to commit. 5. We will monitor for safety for herself in the community prior to discharge. Involuntary Hold Information 96 Hour Hold: 96 Hour Involuntary Admission: Yes 96 Hour Hold Ending Date: 02/18/22 96 Hour Hold Ending Time: 00:15 Attestations NPU Medical Necessity Statement*: Inpatient hospitalization is medically necessary and the clinically appropriate intervention at this time. We will initiate medications and make changes as indicated. Coding Level of Care Code Acute Franchise Field Consultant for Mylene Arreguin Diagnoses Altered mental status R41.82 Acute psychosis F23 Amphetamine abuse F15.10 Insulin dependent type 2 diabetes mellitus E11.9; Z79.4 Legally blind H54.8 Borderline personality disorder F60.3
[2022-02-14 12:38] LABS: Glucose Point of Care 143 mg/dL (70-110)
[2022-02-14 14:00] VITALS: BP 103/71; PULSE 99; RESP 19; TEMP 36.8; O2SAT 100
[2022-02-14 17:02] LABS: Glucose Point of Care 117 mg/dL (70-110)
[2022-02-14 20:25] VITALS: BP 146/101; PULSE 84; RESP 20; TEMP 36.7; O2SAT 97
[2022-02-14] MEDS: atorvastatin 40 mg Tablet 20 MG PO (20:25)
[2022-02-14] MEDS: mirtazapine 15 mg Tablet PO (20:27)
[2022-02-14] MEDS: temazepam 15 mg Capsule 30 MG PO (20:27)
[2022-02-14 20:46] LABS: Glucose Point of Care 243 mg/dL (70-110)
[2022-02-15 06:00] VITALS: BP 111/73; PULSE 104; RESP 17; TEMP 36.8; O2SAT 98
[2022-02-15] MEDS: OLANZapine 5 mg ODT PO (08:43)
[2022-02-15] MEDS: lisinopril 10 mg Tablet PO (08:43)
[2022-02-15] MEDS: escitalopram 10 mg Tablet PO (08:43)
[2022-02-15] MEDS: metformin 500 mg Tablet 1000 MG PO ×2 (08:43→17:09)
[2022-02-15] MEDS: aspirin 81 mg EC Tablet PO (08:43)
[2022-02-15] MEDS: buPROPion XL (24 HR) 150 mg Tablet PO (08:43)
[2022-02-15] MEDS: insulin glargine 100 units/1 mL 20 UNIT SUBCUT (08:55)
[2022-02-15] MEDS: insulin lispro 100 unit/1 mL SUBCUT ×3 (08:56→21:00)
[2022-02-15 09:08] LABS: Glucose Point of Care 195 mg/dL (70-110)
[2022-02-15] MEDS: nicotine 2 mg Gum BUCCAL ×2 (09:25→21:26)
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
[2022-02-15 11:13] LABS: Glucose Point of Care 140 mg/dL (70-110)
[2022-02-15 12:17] LABS: Blood Urine 2+ (Negative); Glucose Urine UA 4+ (Normal); Ketones Urine Negative (Negative); Protein Urine Trace (Negative); Specific Gravity, Urine 1.015 (1.005-1.030); Urine Appearance SL Hazy (CLEAR); Urine Color Yellow (Yellow); pH Urine 5 (5-7)
[2022-02-15 12:18] LABS: Bacteria Urine TRACE /hpf; Bilirubin Urine Neg (Negative); Leukocyte Esterase Urine Negative (Negative); Mucus Urine TRACE /hpf; Nitrate Urine Negative (Negative); RBC Urine 0-4 /hpf (0-2); Urobilinogen Urine Norm (Negative)
[2022-02-15 12:19] LABS: Add Urine Culture? No
[2022-02-15 14:00] VITALS: BP 98/63; PULSE 96; RESP 16; TEMP 36.7; O2SAT 99
[2022-02-15 16:47] LABS: Glucose Point of Care 167 mg/dL (70-110)
[2022-02-15 20:25] VITALS: BP 96/71; PULSE 95; RESP 17; TEMP 36.6; O2SAT 100
[2022-02-15 20:34] LABS: Glucose Point of Care 166 mg/dL (70-110)
[2022-02-15] MEDS: temazepam 15 mg Capsule 30 MG PO (21:21)
[2022-02-15] MEDS: mirtazapine 15 mg Tablet PO (21:21)
[2022-02-15] MEDS: atorvastatin 40 mg Tablet 20 MG PO (21:21)
[2022-02-15] MEDS: hyDROXYzine 25 mg Capsule 50 MG PO (21:26)
--- NOTE | 2022-02-16 03:48 | PC.NURSE ---
212- Vistaril given po for anxiety. It was effective.
[2022-02-16 06:00] VITALS: BP 115/80; PULSE 86; RESP 16; TEMP 36.5; O2SAT 98; BMI 25.4
[2022-02-16 07:15] LABS: Glucose Point of Care 118 mg/dL (70-110)
[2022-02-16] MEDS: nicotine 2 mg Gum BUCCAL ×3 (07:18→17:15)
[2022-02-16] MEDS: metformin 500 mg Tablet 1000 MG PO ×2 (08:55→17:14)
[2022-02-16] MEDS: insulin glargine 100 units/1 mL 20 UNIT SUBCUT (08:55)
[2022-02-16] MEDS: buPROPion XL (24 HR) 150 mg Tablet PO (08:55)
[2022-02-16] MEDS: aspirin 81 mg EC Tablet PO (08:55)
[2022-02-16] MEDS: escitalopram 10 mg Tablet PO (08:55)
[2022-02-16] MEDS: lisinopril 10 mg Tablet PO (08:56)
[2022-02-16] MEDS: insulin lispro 100 unit/1 mL SUBCUT ×2 (11:26→21:34)
[2022-02-16 11:31] LABS: Glucose Point of Care 110 mg/dL (70-110)
[2022-02-16 11:31] LABS: Glucose Point of Care 160 mg/dL (70-110)
[2022-02-16] MEDS: OLANZapine 5 mg ODT PO (13:40)
[2022-02-16 14:00] VITALS: BP 115/62; PULSE 105; RESP 18; TEMP 37.2; O2SAT 100
--- NOTE | 2022-02-16 14:03 | W.PM.NPUPNS ---
Subjective NPU Subjective: She feels like she continues to get a little better. Her anxiety might be a little better. She is better last night than she has slept before. She said that her children or her to stay until she gets better and that is why she has not asked to leave. She agreed to try increasing the Lexapro to 20 mg. She has not had side effects from Lexapro thus far. She still was not willing to consider a treatment program. Mental Status Exam MSE Comments: This is a 36-year old female who appears mildly overweight and in no acute distress. She was up at the [employer] station. She is fairly groomed in hospital scrubs. psychomotor activity is normal Speech is Easily understood now. I can understand all of what she says. There is no pressured speech, tangentiality or clanging associations Alert, oriented x3 Attention and concentration appear to be normal Memory is intact Mood is mildly depressed. Affect mildly dysphoric Thought process is logical and goal-directed. Thought content: Denies auditory and visual hallucinations. No delusions or paranoia are noted. No current suicidal ideation, and no homicidal ideation. Fund of knowledge is probably average Insight and judgment appear to be poor. Impulse control is poor. Cognition: Patient Appearance: Appropriate and Appears Older than Age Level of Consciousness: Drowsy Patient Cognition Impaired: No Ability to Follow Directions: Poor Patient Orientation (long list): Person, Name, Age and Birthday Comprehension Ability: Severe Impairment Hallucination Type: None Delusion Description: Not Present Thought Process: Appropriate and Logical Affect: Affect Description: Appropriate Behavior: Patient Behavior: Appropriate and Cooperative Speech Pattern: Appropriate and Clear Vitals/I&O/Wt Last Vital Signs Temp 97.7 F 02/16/22 06:00 Pulse 86 02/16/22 06:00 Resp 16 02/16/22 06:00 BP 115/80 02/16/22 06:00 Pulse Ox 98 02/16/22 06:00 Weight last 48 hrs Weight 61.235 kg Data NPU : 02/12/22 00:10 02/12/22 00:10 A&P Assessment and plan (1) Altered mental status: Status: Acute (2) Acute psychosis: Status: Acute (3) Amphetamine abuse: Status: Acute (4) Insulin dependent type 2 diabetes mellitus: Status: Acute (5) Legally blind: Status: Acute (6) Borderline personality disorder: Status: Acute Plan This is a 36-year old female with methamphetamine abuse but no other mental health diagnoses who evidently became acutely psychotic and agitated yesterday when being released from [facility]. Plan: 1. Continue current medication. Restoril 30 mg at bedtime for sleep. Increase Lexapro 20 mg QAM. 2. Continue every 15 minute checks for safety. 3. Encourage individual, group and milieu therapies. 4. Encourage sober living treatment after discharge at the highest level of care to which she is willing to commit. 5. We will monitor for safety for herself in the community prior to discharge. Involuntary Hold Information 96 Hour Hold: 96 Hour Involuntary Admission: Yes 96 Hour Hold Ending Date: 02/18/22 96 Hour Hold Ending Time: 00:15 Attestations NPU Medical Necessity Statement*: Inpatient hospitalization is medically necessary and the clinically appropriate intervention at this time. We will initiate medications and make changes as indicated. Coding Level of Care Code Acute Data Communications Technician for Mylene Arreguin Diagnoses Altered mental status R41.82 Acute psychosis F23 Amphetamine abuse F15.10 Insulin dependent type 2 diabetes mellitus E11.9; Z79.4 Legally blind H54.8 Borderline personality disorder F60.3
[2022-02-16 16:36] LABS: Glucose Point of Care 136 mg/dL (70-110)
[2022-02-16 20:05] VITALS: BP 84/56; PULSE 104; RESP 16; TEMP 36.6; O2SAT 98
[2022-02-16] MEDS: temazepam 15 mg Capsule 30 MG PO (20:49)
[2022-02-16] MEDS: atorvastatin 40 mg Tablet 20 MG PO (20:50)
[2022-02-16] MEDS: mirtazapine 15 mg Tablet PO (20:50)
[2022-02-16 21:00] LABS: Glucose Point of Care 146 mg/dL (70-110)
--- NOTE | 2022-02-16 21:42 | PC.NURSE ---
patient now on phone by nurses station
[2022-02-17 06:00] VITALS: BP 98/66; PULSE 94; RESP 19; TEMP 36.5; O2SAT 96
[2022-02-17 06:18] LABS: Glucose Point of Care 92 mg/dL (70-110)
--- NOTE | 2022-02-17 07:57 | P.NPUPN_ITS ---
Subjective NPU Subjective: She feels like she continues to get a little better. Her anxiety might be a little better. She slept well again last night. She said that her children or her to stay until she gets better and that is why she has not asked to leave. Today will be the first dose of Lexapro to 20 mg. She has not had side effects from Lexapro thus far. She still was not willing to consider a treatment program. Mental Status Exam MSE Comments: This is a 36-year old female who appears mildly overweight and in no acute distress. She was up at the nurses station waiting to use the phone. She is fairly groomed in hospital scrubs. psychomotor activity is normal Speech is Easily understood now. I can understand all of what she says. There is no pressured speech, tangentiality or clanging associations Alert, oriented x3 Attention and concentration appear to be normal Memory is intact Mood is mildly depressed. Affect mildly dysphoric Thought process is logical and goal-directed. Thought content: Denies auditory and visual hallucinations. No delusions or paranoia are noted. No current suicidal ideation, and no homicidal ideation. Fund of knowledge is probably average Insight and judgment appear to be poor. Impulse control is poor. Cognition: Patient Appearance: Appropriate and Appears Older than Age Level of Consciousness: Drowsy Patient Cognition Impaired: No Ability to Follow Directions: Poor Patient Orientation (long list): Person, Name, Age and Birthday Comprehension Ability: Severe Impairment Hallucination Type: None Delusion Description: Not Present Thought Process: Appropriate and Logical Affect: Affect Description: Appropriate Behavior: Patient Behavior: Appropriate and Cooperative Speech Pattern: Appropriate and Clear Vitals/I&O/Wt Last Vital Signs Temp 97.7 F 02/17/22 06:00 Pulse 94 02/17/22 06:00 Resp 19 H 02/17/22 06:00 BP 98/66 02/17/22 06:00 Pulse Ox 96 02/17/22 06:00 Weight last 48 hrs Weight 61.235 kg Data NPU : 02/12/22 00:10 02/12/22 00:10 A&P Assessment and plan (1) Altered mental status: Status: Acute (2) Acute psychosis: Status: Acute (3) Amphetamine abuse: Status: Acute (4) Insulin dependent type 2 diabetes mellitus: Status: Acute (5) Legally blind: Status: Acute (6) Borderline personality disorder: Status: Acute Plan This is a 36-year old female with methamphetamine abuse but no other mental health diagnoses who evidently became acutely psychotic and agitated yesterday when being released from [facility]. Plan: 1. Continue current medication. Restoril 30 mg at bedtime for sleep. Increase Lexapro 20 mg QAM. 2. Continue every 15 minute checks for safety. 3. Encourage individual, group and milieu therapies. 4. Encourage sober living treatment after discharge at the highest level of care to which she is willing to commit. 5. We will monitor for safety for herself in the community prior to discharge. Involuntary Hold Information 96 Hour Hold: 96 Hour Involuntary Admission: Yes 96 Hour Hold Ending Date: 02/18/22 96 Hour Hold Ending Time: 00:15 Attestations NPU Medical Necessity Statement*: Inpatient hospitalization is medically necessary and the clinically appropriate intervention at this time. We will initiate medications and make changes as indicated. Coding Level of Care Code Acute Tentering Machine Feeder for Mylene Arreguin Diagnoses Altered mental status R41.82 Acute psychosis F23 Amphetamine abuse F15.10 Insulin dependent type 2 diabetes mellitus E11.9; Z79.4 Legally blind H54.8 Borderline personality disorder F60.3
[2022-02-17] MEDS: buPROPion XL (24 HR) 150 mg Tablet PO (08:48)
[2022-02-17] MEDS: metformin 500 mg Tablet 1000 MG PO ×2 (08:49→16:49)
[2022-02-17] MEDS: aspirin 81 mg EC Tablet PO (08:49)
[2022-02-17] MEDS: lisinopril 10 mg Tablet PO (08:49)
[2022-02-17] MEDS: escitalopram 10 mg Tablet 20 MG PO (08:49)
[2022-02-17] MEDS: insulin glargine 100 units/1 mL 20 UNIT SUBCUT (08:55)
[2022-02-17] MEDS: hyDROXYzine 25 mg Capsule 50 MG PO ×2 (11:10→21:01)
--- NOTE | 2022-02-17 11:11 | PC.NURSE ---
PRN VISTARIL 50 MG GIVEN PO PER PT C/O STATED ANXIETY
[2022-02-17 11:23] LABS: Glucose Point of Care 147 mg/dL (70-110)
[2022-02-17] MEDS: insulin lispro 100 unit/1 mL SUBCUT ×2 (11:30→21:01)
--- NOTE | 2022-02-17 11:34 | NPU.GN ---
[facility] Group Topic:Mental Health discussion General Mood of Group: Alexandra did attend and participate in group today. Hygiene was ok and so was demeanor. Alexandra stated to this CSS that she was totally blind.
[2022-02-17 14:00] VITALS: BP 118/82; PULSE 75; RESP 17; TEMP 36.6; O2SAT 96
[2022-02-17 16:25] LABS: Glucose Point of Care 132 mg/dL (70-110)
[2022-02-17] MEDS: OLANZapine 5 mg ODT PO (16:52)
--- NOTE | 2022-02-17 16:54 | PC.NURSE ---
PRN ZYPREXA ZYDIS 5 MG GIVEN PO PER PT C/O STATED ANXIETY/AGITATION. WILL CONT TO MONITOR
[2022-02-17] MEDS: temazepam 15 mg Capsule 30 MG PO (20:29)
[2022-02-17] MEDS: atorvastatin 40 mg Tablet 20 MG PO (20:29)
[2022-02-17] MEDS: NON-FORMULARY MEDICATION (Melatonin 5 mg Tablet) 10 EACH PO (20:30)
[2022-02-17] MEDS: mirtazapine 15 mg Tablet PO (20:30)
[2022-02-17 20:56] LABS: Glucose Point of Care 168 mg/dL (70-110)
[2022-02-17 21:10] VITALS: BP 118/79; PULSE 97; RESP 17; TEMP 36.9; O2SAT 98
[2022-02-17] MEDS: nicotine 2 mg Gum BUCCAL (21:17)
[2022-02-17] MEDS: acetaminophen 325 mg Tablet 650 MG PO (23:14)
[2022-02-17 23:20] VITALS: BP 94/61; PULSE 94; RESP 17; TEMP 36.4; O2SAT 99
--- NOTE | 2022-02-18 04:23 | PC.NURSE ---
At 2303 the TIE TAPE MACHINE OPERATOR came to this filing writer and said that a patient fell. The TIE TAPE MACHINE OPERATOR stated she was making her q 15 min rounds and heard something. She went to investigate and found the patient standing with the roommate in 128. The patient stated to this filing writer that she went to stand up and got dizzy and fell. New vitals were taken. Her BP was 94/61. She was sitting on the side of her bed. She denied being dizzy as she sat. She said that she landed on her left buttock and it was a little sore. She requested Tylenol for the soreness. She denied any other injuries or pain. Tylenol was administered and the patient layed down in bed and went to sleep. The melt house drag operator was notified and an incident report was completed.
[2022-02-18 06:00] VITALS: BP 101/67; PULSE 90; RESP 18; TEMP 37.1; O2SAT 96
[2022-02-18 06:56] LABS: Glucose Point of Care 108 mg/dL (70-110)
[2022-02-18] MEDS: aspirin 81 mg EC Tablet PO (08:07)
[2022-02-18] MEDS: escitalopram 10 mg Tablet 20 MG PO (08:07)
[2022-02-18] MEDS: buPROPion XL (24 HR) 150 mg Tablet PO (08:07)
[2022-02-18] MEDS: lisinopril 10 mg Tablet PO (08:08)
[2022-02-18] MEDS: metformin 500 mg Tablet 1000 MG PO (08:08)
[2022-02-18] MEDS: nicotine 2 mg Gum BUCCAL (08:09)
[2022-02-18] MEDS: acetaminophen 325 mg Tablet 650 MG PO (08:09)
[2022-02-18] MEDS: insulin glargine 100 units/1 mL 20 UNIT SUBCUT (08:23)
--- NOTE | 2022-02-18 10:19 | P.NPUDS_ITS ---
Diagnoses at Discharge Discharge Diagnosis (1) Altered mental status: Status: Inactive (2) Acute psychosis: Status: Acute (3) Amphetamine abuse: Status: Acute (4) Insulin dependent type 2 diabetes mellitus: Status: Acute (5) Legally blind: Status: Acute (6) Borderline personality disorder: Status: Acute Reason for Visit Reason for Visit: SI Brief History: She was admitted to the neuropsychiatry unit for definitive treatment of her issues.? She was found in bed and sleepy.? She has been in bed since she has been here.? I tried to wake her up a couple of hours ago but I could not.? She would not sit up and talk with me.? She was difficult to interview.? Most of what she said I could not understand.? She says that the people at [facility] like to her.? They said that her last day was supposed to be February 19 but she was asking for an extension.? She said that she was there and in bed when they called the police.? She denies having any problematic behaviors.? She said that the police treated her badly and hurt her when they tried to calm her down.? She denies any recent auditory or visual hallucinations or paranoid ideas.? She said that she has not been depressed or suicidal recently.? She was depressed and suicidal and hospitalized about 2 years ago.? She would not say how many times she has been hospitalized.? She says that the antidepressants have never helped her.? She denies doing any substances the last few days.? The last time she used methamphetamine was before going into [facility].? Of interest, she was in the emergency room 1 week ago and could not move the left side of her body.? Dr. Elaine did not think that she had an ischemic stroke.? It was not specifically stated that it was psychogenic. Hospital Course Hospital Course She slowly acclimated to the individual, group and milieu therapies provided. She was continued on her outpatient medication with the addition of Restoril 30 mg and Lexapro 20 mg daily. She slept well with Restoril 30 mg along with Remeron 15 mg daily. We tried to talk her into treatment for her substance abuse but she refused. She tolerated these doses and showed steady improvement during her stay. She was able to contract for safety outside hospital prior to discharge. During the hospitalization, patient had routine laboratory studies which were within normal limits except for few outliers. Additionally there was a general medical evaluation which was also within normal limits and revealed no new acute processes. Discharge Summary: At the time of discharge, lethality was denied and psychosis was resolving. Mood and anxiety were well managed. Patient endorsed a plan to follow-up with the aftercare recommendations of the treatment team. Patient was evaluated and deemed to be absent credible lethality, and had achieved the maximum benefit from an inpatient hospitalization, so was discharged. Involuntary Hold Information 96 Hour Hold: 96 Hour Involuntary Admission: Yes 96 Hour Hold Ending Date: 02/18/22 96 Hour Hold Ending Time: 00:15 Mental Status Exam MSE Comments: This is a 36-year old female who appears mildly overweight and in no acute distress. She was up at the nurses station waiting to use the phone. She is fairly groomed in hospital scrubs. psychomotor activity is normal Speech is Easily understood now. I can understand all of what she says. There is no pressured speech, tangentiality or clanging associations Alert, oriented x3 Attention and concentration appear to be normal Memory is intact Mood is mildly depressed. Affect mildly dysphoric Thought process is logical and goal-directed. Thought content: Denies auditory and visual hallucinations. No delusions or paranoia are noted. No current suicidal ideation, and no homicidal ideation. Fund of knowledge is probably average Insight and judgment appear to be poor. Impulse control is poor. Cognition: Patient Appearance: Appropriate Level of Consciousness: Drowsy Patient Cognition Impaired: No Ability to Follow Directions: Poor Patient Orientation (long list): Person, Name, Age and Birthday Comprehension Ability: Severe Impairment Hallucination Type: None Delusion Description: Not Present Thought Process: Circumstantial Affect: Affect Description: [place] and Depressed Behavior: Patient Behavior: Appropriate Speech Pattern: Excessive Discharge Data Studies Completed and Pending: Laboratory Results WBC 10.1 10^3/uL (4.0 -10.0) H 02/12/22 00:10 RBC 4.49 10^6/uL (4.1 -5.3) 02/12/22 00:10 Hgb 11.6 g/dL (11.5-1 5.3) 02/12/22 00:10 Hct 37.4 % (37.0-47.0 ) 02/12/22 00:10 MCV 83.3 fl (81-99) 02/12/22 00:10 MCH 25.8 pg (28.0-34. 0) L 02/12/22 00:10 MCHC 31.0 g/dL (30.0-3 6.0) 02/12/22 00:10 RDW 15.5 % (12.1-15.1 ) H 02/12/22 00:10 Plt Count 498 10^3/cmm (130 -400) H 02/12/22 00:10 MPV 9.2 fL (7.4-10.4) 02/12/22 00:10 Neut % (Auto) 65.9 % 02/12/22 00:10 Lymph % (Auto) 28.5 % 02/12/22 00:10 [place] % (Auto) 4.2 % 02/12/22 00:10 Eos % (Auto) 0.8 % 02/12/22 00:10 Baso % (Auto) 0.4 % 02/12/22 00:10 Neut # (Auto) 6.65 10^3/uL (1.8 -7.7) 02/12/22 00:10 Lymph # (Auto) 2.9 10^3/uL (0.8- 4.8) 02/12/22 00:10 [place] # (Auto) 0.4 10^3/uL (0.2- 0.9) 02/12/22 00:10 Eos # (Auto) 0.1 10^3/uL (0.0- 0.8) 02/12/22 00:10 Baso # (Auto) 0.0 10^3/uL (0.0- 0.1) 02/12/22 00:10 Nucleated RBC % (a uto) 0 % 02/12/22 00:10 Nucleated RBCs # 0.0 /100WBC 02/12/22 00:10 Sodium 135 mmol/L (136-1 45) L 02/12/22 00:10 Potassium 4.5 mmol/L (3.5-5 .1) 02/12/22 00:10 Chloride 98 mmol/L (98-107 ) 02/12/22 00:10 Carbon Dioxide 22 mmol/L (22-29) 02/12/22 00:10 Anion Gap 19.5 (5-19) H 02/12/22 00:10 BUN 25 mg/dL (6-20) H 02/12/22 00:10 Creatinine 0.6 mg/dL (0.5-0. 9) 02/12/22 00:10 GFR Calculation 112.5 mL/min (90- 130) 02/12/22 00:10 Glucose 205 mg/dL (65-115 ) H 02/12/22 00:10 POC Glucose 108 mg/dL (70-110 ) 02/18/22 06:44 Calculated Osmolal ity 290 mOsm/kg (285- 295) 02/12/22 00:10 Calcium 10.5 mg/dL (8.5-1 0.5) 02/12/22 00:10 Total Bilirubin 0.3 mg/dL (0.15-1 .2) 02/12/22 00:10 AST 12 U/L (0-32) 02/12/22 00:10 ALT 20 U/L (0-33) 02/12/22 00:10 Alkaline Phosphata se 85 IU/L (35-105) 02/12/22 00:10 Total Protein 8.1 g/dL (6.6-8.7 ) 02/12/22 00:10 Albumin 4.7 g/dL (3.5-5.2 ) 02/12/22 00:10 Globulin 3.4 g/dL (1.3-4.6 ) 02/12/22 00:10 TSH 1.10 uIU/mL (0.27 -4.20) 02/12/22 00:10 HCG, Qual Negative (Negati ve) 02/12/22 02:12 Urine Color Yellow (Yellow) 02/15/22 11:29 Urine Appearance Sl hazy (CLEAR) 02/15/22 11:29 Urine pH 5 (5-7) 02/15/22 11:29 Ur Specific Gravit y 1.015 (1.005-1.0 30) 02/15/22 11:29 Urine Protein Trace (Negative) 02/15/22 11:29 Urine Glucose (UA) 4+ (Normal) H 02/15/22 11:29 Urine Ketones Negative (Negati ve) 02/15/22 11:29 Urine Blood 2+ (Negative) H 02/15/22 11:29 Urine Nitrate Negative (Negati ve) 02/15/22 11:29 Urine Bilirubin Neg (Negative) 02/15/22 11:29 Urine Urobilinogen Norm mg/dL (Negat dontrell) 02/15/22 11:29 Ur Leukocyte Shana ase Negative (Negati ve) 02/15/22 11:29 Urine RBC 0-4 /hpf (0-2) H 02/15/22 11:29 Urine WBC None /hpf (0-5) 02/15/22 11:29 Ur Squamous Epith Cells 10-15 /hpf (0-5) H 02/15/22 11:29 Amorphous Sediment Not Reportable 02/15/22 11:29 Urine Bacteria Trace /hpf (NONE) 02/15/22 11:29 Urine Mucus Trace /hpf 02/15/22 11:29 Salicylates < 0.3 mg/dL (3-10 ) L 02/12/22 00:10 Urine Opiates Scre en Negative ng/mL (N egative) 02/12/22 02:12 Acetaminophen < 5.0 ug/mL (10-3 0) L 02/12/22 00:10 Ur Barbiturates Sc reen Negative ng/mL (N egative) 02/12/22 02:12 Ur Phencyclidine S crn Negative ng/mL (N egative) 02/12/22 02:12 Ur Amphetamines Sc reen Negative ng/mL (N egative) 02/12/22 02:12 U Benzodiazepines Scrn Negative ng/mL (N egative) 02/12/22 02:12 Urine Cocaine Scre en Negative ng/mL (N egative) 02/12/22 02:12 U Marijuana (THC) Screen Negative ng/mL (N egative) 02/12/22 02:12 Ethyl Alcohol < 10 mg/dL (0-10) 02/12/22 00:10 Serum Ketones Negative (Negati ve) 02/12/22 00:10 Vitals: Last Vital Signs Temp 98.7 F 02/18/22 06:00 Pulse 90 02/18/22 06:00 Resp 18 02/18/22 06:00 BP 101/67 02/18/22 06:00 Pulse Ox 96 02/18/22 06:00 Discharge Plan Discharge Patient Disposition: Home Condition: Stable Prescriptions: New temazepam 15 mg Capsule 30 mg PO BEDTIME 30 Days Qty: 30 1RF escitalopram oxalate 10 mg Tablet 20 mg PO DAILY 30 Days Qty: 30 1RF mirtazapine 15 mg Tablet 15 mg PO BEDTIME 30 Days Qty: 30 0RF bupropion HCl 150 mg Tablet Extended Release 24 Hr 150 mg PO DAILY 30 Days Qty: 30 1RF Continued lisinopril 10 mg Tablet 10 mg PO DAILY 0RF metformin 500 mg Tablet 1,000 mg PO BID 0RF atorvastatin 20 mg Tablet 20 mg PO BEDTIME 0RF ondansetron HCl 8 mg Tablet 8 mg PO Q8H PRN (Reason: Nausea) 0RF Januvia 100 mg Tablet 100 mg PO DAILY 0RF melatonin 5 mg Tablet 10 mg PO BEDTIME 0RF Jardiance 25 mg Tablet 25 mg PO DAILY 0RF Lantus Solostar U-100 Insulin 100 unit/mL (3 mL) insulin pen 20 unit SUBCUT QAM Qty: 15 0RF aspirin 81 mg tablet,delayed release (DR/EC) 81 mg PO DAILY Qty: 30 0RF hydroxyzine pamoate 50 mg Capsule 50 mg PO TID PRN (Reason: Anxiety) 30 Days Qty: 60 1RF mirtazapine 15 mg Tablet 15 mg PO BEDTIME 30 Days Qty: 30 1RF bupropion HCl 150 mg Tablet Extended Release 24 Hr 150 mg PO DAILY 30 Days Qty: 30 1RF Discharge Orders: Discharge Order (Routine); Ordered 02/18/22 Ordered By: Troy Sibley Referrals: Referral for services [Other] Discharge Diet: Regular Discharge Activity: Resume usual activity Patient Instructions: Opioid Safety Discharge Attestations NPU Time Spent in Discharge Care*: less than 30 min Specific Discharge Activities: Specific discharge activities: educating patient, discussing with field nurse case manager/social workers/dc planners, documenting/other paperwork and evaluating patient/reviewing data Status at Discharge: Cognitive status at discharge: cognitively intact , Behavioral status at discharge: can be uncooperative , Coding Level of Care Code Acute [facility] DC note Diagnoses Altered mental status R41.82 Acute psychosis F23 Amphetamine abuse F15.10 Insulin dependent type 2 diabetes mellitus E11.9; Z79.4 Legally blind H54.8 Borderline personality disorder F60.3
--- NOTE | 2022-02-18 10:50 | NPU.GN ---
[facility] Topic:Positive Coping Skills General Mood of Group: Alexandra did attend group today. She was social and her hygiene was ok. Her demeanor was ok but she did get a bit upset with another staff. This staff had to redirect this patients focus and thought process to calm her down.
--- NOTE | 2022-02-18 10:51 | PC.NURSE ---
DISCHARGE MEDICATIONS CALLED INTO [facility] @ [phone], SPOKE TO GABRIELLA BUPROPION 150 MG PO DAILY QTY 30 REFILL 1 LEXAPRO 20 MG PO DAILY QTY 30 REFILL 1 MIRTAZAPINE 15 MG PO BEDTIME QTY 30, NO REFILLS TEMAZEPAM 30 MG BEDTIME QTY 30 REFILL 1
[2022-02-18 10:54] VITALS: BP 101/67; PULSE 90; RESP 18; TEMP 37.1; O2SAT 96
[2022-02-18 11:39] LABS: Glucose Point of Care 146 mg/dL (70-110)
== END 2022-02-18 11:51 | disposition home or self-care (01) | DRG 885 ==
LOC: ER 03:26 → NP 03:41
PROVIDERS: Admitting Provider Psychiatry & Neurology Psychiatry; Emergency Provider Emergency Medicine; Visit Provider Psychiatry & Neurology Psychiatry
DX: F23 Brief psychotic disorder (principal); F15.10 Other stimulant abuse, uncomplicated; E11.9 Type 2 diabetes mellitus without complications; Z79.4 Long term (current) use of insulin; H54.8 Legal blindness, as defined in USA; F60.3 Borderline personality disorder; R41.82 Altered mental status, unspecified; Z62.810 Personal history of physical and sexual abuse in childhood; Z79.84 Long term (current) use of oral hypoglycemic drugs
CPT/HCPCS: 36416; 80053; 80306; 80307; 81001; 81025; 82009; 82962; 84443; 85025; 96372; 97150; 97165; 99285; J1630; J1815 ×2; J2250; J7030